=== PATIENT | female | born 1980 | race Caucasian/White ===

== ENCOUNTER 2016-08-14 22:39 | Emergency (ER) | payer BC, MEDICARE ==
[2016-08-14 23:07] VITALS: RESP 18
[2016-08-14] MEDS ORDERED: SODIUM CHLORIDE 0.9% 500 ML IV STA (23:21)
[2016-08-14] MEDS ORDERED: SODIUM CHLORIDE 0.9% 1,000 ML IV STA (23:21)
[2016-08-14 23:32] LABS: Basophils # (A) 0.1 k/uL (0-0.2); Basophils % (A) 1 %; CH 29.2; CHCM 32.8; Eosinophils # (A) 0.4 k/uL (0-0.7); Eosinophils % (A) 4 %; HCT 41.7 % (34.0-46.0); HDW 2.19; HGB 13.6 gm/dL (11.4-16.0); Luc % (Auto) 2; Lymphocytes # (A) 2.8 k/uL (1.0-4.8); Lymphocytes % (A) 32 %; MCH 29.1 pg (25.0-35.0); MCHC 32.5 g/dL (31.0-37.0); MCV 89.6 fL (80.0-100.0); Mean Platelet Volume 7.6; Monocytes # (A) 0.4 k/uL (0-1.0); Monocytes % (A) 5 %; Neutrophils # (A) 4.7 k/uL (1.3-7.7); Neutrophils % (A) 55 %; RBC 4.66 m/uL (3.80-5.40); RDW 13.6 % (11.5-15.5); WBC 8.5 k/uL (3.8-10.6); WBC (Perox) 8.68
[2016-08-14 23:33] LABS: Appearance,Urine Clear (Clear); Bilirubin,Urine Negative (Negative); Glucose,Urine (UA) Negative (Negative); Ketones,Urine Negative (Negative); Leukocyte Esterase,Urine Negative (Negative); Nitrite,Urine Negative (Negative); Protein,Urine Negative (Negative); Specific Gravity,Urine 1.011 (1.001-1.035); UA Billing (MACRO vs. MICRO) CHEM
[2016-08-14] MEDS ORDERED: ACETAMINOPHEN IV (For NPO) 1,000 MG in EMPTY BAG 1 BAG IVPB STA (23:34)
[2016-08-14] MEDS ORDERED: KETOROLAC 30 MG/ML 1 ML VIAL IVP STA (23:34)
[2016-08-14 23:46] LABS: ALT 25 U/L (9-52); AST 17 U/L (14-36); Alkaline Phosphatase 43 U/L (38-126); Anion Gap 11 mmol/L; Blood Urea Nitrogen 13 mg/dL (7-17); Calcium 9.5 mg/dL (8.4-10.2); Carbon Dioxide 25 mmol/L (22-30); Chloride 107 mmol/L (98-107); Glucose 86 mg/dL (74-99); Non-African American GFR(MDRD) >60 (>60 ml/min/1.73 sqM); Sodium 143 mmol/L (137-145); Total Bilirubin 0.6 mg/dL (0.2-1.3); Total Protein 7.7 g/dL (6.3-8.2)
--- NOTE | 2016-08-15 00:07 | ED ---
Fever HPI - General Chief Complaint: Fever Stated Complaint: headache/body ache/fever Time Seen by Provider: 08/14/16 23:13 Source: patient, RN notes reviewed Mode of arrival: ambulatory Limitations: no limitations - History of Present Illness Initial Comments: Patient is a 36-year-old female with chief complaint of fever and bodyaches for approximately a week. She reports that she is concerned she may have food poisoning she ate listeria contaminated cheese. She reports that she found out the listeria was and that she is via the news. She states that she does have a history of autoimmune disorders including ankylosing spondylitis, fibromyalgia. She states that she does have diffuse bodyaches and is concerned that she may be septic due to this. She reports that she's had multiple episodes of diarrhea. Also 2 episodes of vomiting. She also reports mild fever she had Motrin Tylenol earlier today. PAtient also reports history of dental abscess of upper right front teeth for 2 weeks, no antibiotics and plans to follow up with dentist. - Related Data Home Medications Medication Instructions Recorded Confirmed ALPRAZolam [Xanax] 1 mg PO TID 12/13/13 08/14/16 Albuterol Sulfate [Proair Hfa] 2 puff INHALATION RT-Q6H PRN 12/13/13 08/14/16 Gabapentin [Neurontin] 300 mg PO TID 12/13/13 08/14/16 Hydrocodone/Acetaminophen [[place] 1 tab PO Q6H PRN 12/13/13 08/14/16 10-325] SUMAtriptan SUCCINATE [Imitrex] 4 mg SQ DAILY PRN 12/13/13 08/14/16 Cetirizine HCl [Zyrtec] 10 mg PO HS 11/01/15 08/14/16 Cyclobenzaprine [Flexeril] 5 mg PO DAILY PRN 11/01/15 08/14/16 Fluticasone Nasal [place] [Flonase 1 spray EA NOSTRIL BID 11/01/15 08/14/16 Nasal [place]] HYDROmorphone HCL [Dilaudid] 8 mg PO Q4-6H 11/01/15 08/14/16 SUMAtriptan SUCCINATE [Imitrex] 100 mg PO DAILY PRN 11/01/15 08/14/16 Celecoxib [CeleBREX] 200 mg PO BID 08/14/16 08/14/16 DULoxetine HCL [Cymbalta] 60 mg PO BID 08/14/16 08/14/16 Ibuprofen [Motrin] 400 mg PO Q6HR PRN 08/14/16 08/14/16 lamoTRIgine [LaMICtal] 100 mg PO DAILY 08/14/16 08/14/16 Previous Rx's Medication Instructions Recorded Amoxic-Pot Clav 875-125Mg 1 tab PO Q12HR #20 tablet 08/15/16 [Augmentin 875-125] Allergies Allergy/AdvReac Type Severity Reaction Status Date / Time No Known Allergies Allergy Verified 08/14/16 23:25 Review of Systems ROS Statement: Those systems with pertinent positive or pertinent negative responses have been documented in the HPI. ROS Other: All systems not noted in ROS Statement are negative. Past Medical History Past Medical History: Fibromyalgia, Pulmonary Embolus (PE) Additional Past Medical History / Comment(s): chronic back pain, ankylosing spondylitis, ruling out multiple sclerosis, chronic constipation History of Any Multi-Drug Resistant Organisms: None Reported Additional Past Surgical History / Comment(s): d&c Past Psychological History: Anxiety Smoking Status: Current every day smoker Past Alcohol Use History: None Reported Past Drug Use History: None Reported General Exam - General Exam Comments Initial Comments: 36-year-old female. Patient does not appear to be in any acute distress. Limitations: no limitations General appearance: alert, in no apparent distress Head exam: Present: atraumatic, normocephalic, normal inspection Eye exam: Present: normal appearance, PERRL, EOMI. Absent: scleral icterus, conjunctival injection, periorbital swelling ENT exam: Present: normal exam, mucous membranes moist. Absent: normal oropharynx (evidnce of dental abscess over roof of mouth behind left upper teeth. ) Neck exam: Present: normal inspection. Absent: tenderness, meningismus, lymphadenopathy Respiratory exam: Present: normal lung sounds bilaterally. Absent: respiratory distress, wheezes, rales, rhonchi, stridor Cardiovascular Exam: Present: regular rate, normal rhythm, normal heart sounds. Absent: systolic murmur, diastolic murmur, rubs, gallop, clicks GI/Abdominal exam: Present: soft, normal bowel sounds. Absent: distended, tenderness, guarding, rebound, rigid Extremities exam: Present: normal inspection, full ROM, normal capillary refill. Absent: tenderness, pedal edema, joint swelling, calf tenderness Back exam: Present: normal inspection Neurological exam: Present: alert, oriented X3, CN II-XII intact Psychiatric exam: Present: normal affect, normal mood Skin exam: Present: warm, dry, intact, normal color. Absent: rash Course Vital Signs 08/14/16 08/15/16 23:03 01:12 Temperature 98.9 F 97.8 F Pulse Rate 105 H 70 Respiratory 18 18 Rate Blood Pressure 119/67 108/55 O2 Sat by Pulse 95 95 Oximetry Medical Decision Making - Medical Decision Making Patient is a 36-year-old female with chief complaint of fever and bodyaches for approximately a week. She reports that she is concerned she may have food poisoning she ate listeria contaminated cheese. She reports that she found out the listeria was and that she is via the news. She states that she does have a history of autoimmune disorders including ankylosing spondylitis, fibromyalgia. She states that she does have diffuse bodyaches and is concerned that she may be septic due to this. She reports that she's had multiple episodes of diarrhea. Also 2 episodes of vomiting. She also reports mild fever she had Motrin Tylenol earlier today. Patient also has history of dental abscess for 2 weeks. Patient will be given Rx for augmentin for dental abscess. IV fluids and labs completed. Labs are within normal limits, and negative flu swab. I discussed treating patient for dental abscess, and to follow up with PCP as she may be having an exacerbation of fibromyalgia. Patient CXR is negative and KUB does show significant bowel gas, no definite obstruction. Patient has no vomiting in ER and reports is passing gas and bowel movements. Patient understands treatment plan and will comply. - Lab Data Result diagrams: 08/14/16 23:10 08/14/16 23:10 Lab Results 08/14/16 08/14/16 08/14/16 Range/Units 23:10 23:10 23:10 WBC 8.5 (3.8-10.6) k/uL RBC 4.66 (3.80-5.40) m/uL Hgb 13.6 (11.4-16.0) gm/dL Hct 41.7 (34.0-46.0) % MCV 89.6 (80.0-100.0) fL MCH 29.1 (25.0-35.0) pg MCHC 32.5 (31.0-37.0) g/dL RDW 13.6 (11.5-15.5) % Plt Count 235 (150-450) k/uL Neutrophils % 55 % Lymphocytes % 32 % Monocytes % 5 % Eosinophils % 4 % Basophils % 1 % Neutrophils # 4.7 (1.3-7.7) k/uL Lymphocytes # 2.8 (1.0-4.8) k/uL Monocytes # 0.4 (0-1.0) k/uL Eosinophils # 0.4 (0-0.7) k/uL Basophils # 0.1 (0-0.2) k/uL Sodium 143 (137-145) mmol/L Potassium 4.0 (3.5-5.1) mmol/L Chloride 107 (98-107) mmol/L Carbon Dioxide 25 (22-30) mmol/L Anion Gap 11 mmol/L BUN 13 (7-17) mg/dL Creatinine 0.80 (0.52-1.04) mg/dL Est GFR (MDRD) Af Amer >60 (>60 ml/min/1.73 sqM) Est GFR (MDRD) Non-Af >60 (>60 ml/min/1.73 sqM) Glucose 86 (74-99) mg/dL Calcium 9.5 (8.4-10.2) mg/dL Total Bilirubin 0.6 (0.2-1.3) mg/dL AST 17 (14-36) U/L ALT 25 (9-52) U/L Alkaline Phosphatase 43 (38-126) U/L Total Protein 7.7 (6.3-8.2) g/dL Albumin 4.6 (3.5-5.0) g/dL Urine Color Urine Appearance (Clear) Urine pH (5.0-8.0) Ur Specific [place] (1.001-1.035) Urine Protein (Negative) Urine Glucose (UA) (Negative) Urine Ketones (Negative) Urine Blood (Negative) Urine Nitrite (Negative) Urine Bilirubin (Negative) Urine Urobilinogen (<2.0) mg/dL Ur Leukocyte Esterase (Negative) Heterophile Antibody Negative (Negative) Influenza Type A RNA (Not Detectd) Influenza Type B (PCR) (Not Detectd) 03/16/17 03/16/17 Range/Units 23:10 23:24 WBC (3.8-10.6) k/uL RBC (3.80-5.40) m/uL Hgb (11.4-16.0) gm/dL Hct (34.0-46.0) % MCV (80.0-100.0) fL MCH (25.0-35.0) pg MCHC (31.0-37.0) g/dL RDW (11.5-15.5) % Plt Count (150-450) k/uL Neutrophils % % Lymphocytes % % Monocytes % % Eosinophils % % Basophils % % Neutrophils # (1.3-7.7) k/uL Lymphocytes # (1.0-4.8) k/uL Monocytes # (0-1.0) k/uL Eosinophils # (0-0.7) k/uL Basophils # (0-0.2) k/uL Sodium (137-145) mmol/L Potassium (3.5-5.1) mmol/L Chloride (98-107) mmol/L Carbon Dioxide (22-30) mmol/L Anion Gap mmol/L BUN (7-17) mg/dL Creatinine (0.52-1.04) mg/dL Est GFR (MDRD) Af Amer (>60 ml/min/1.73 sqM) Est GFR (MDRD) Non-Af (>60 ml/min/1.73 sqM) Glucose (74-99) mg/dL Calcium (8.4-10.2) mg/dL Total Bilirubin (0.2-1.3) mg/dL AST (14-36) U/L ALT (9-52) U/L Alkaline Phosphatase (38-126) U/L Total Protein (6.3-8.2) g/dL Albumin (3.5-5.0) g/dL Urine Color Yellow Urine Appearance Clear (Clear) Urine pH 7.0 (5.0-8.0) Ur Specific [place] 1.011 (1.001-1.035) Urine Protein Negative (Negative) Urine Glucose (UA) Negative (Negative) Urine Ketones Negative (Negative) Urine Blood Negative (Negative) Urine Nitrite Negative (Negative) Urine Bilirubin Negative (Negative) Urine Urobilinogen 2.0 (<2.0) mg/dL Ur Leukocyte Esterase Negative (Negative) Heterophile Antibody (Negative) Influenza Type A RNA Not Detected (Not Detectd) Influenza Type B (PCR) Not Detected (Not Detectd) - Radiology Data Radiology results: report reviewed Chest x-rays negative for any acute process. Nonspecific bowel gas pattern with possible cecal ileus or enteritis. Early process partial small bowel instruction difficult to entirely exclude clinical correlation with serial abdominal radiograph recommended for further evaluation. No free air. Disposition Clinical Impression: Dental abscess, Body aches Disposition: HOME SELF-CARE Condition: Good Instructions: Dental Abscess (ED) Additional Instructions: Patient has follow-up with primary care provider. Complete her antibiotic prescription. Return to the emergency department if any worsening signs or symptoms occur. Prescriptions: Amoxic-Pot Clav 875-125Mg [Augmentin 875-125] 1 tab PO Q12HR #20 tablet Referrals: Josse Austin MD [Primary Care Provider] - 1-2 days Time of Disposition: 01:01
[2016-08-15] MEDS ORDERED: MORPHINE SULFATE 2 MG/ML SYRINGE IVP ONE (00:19)
[2016-08-15] MEDS ORDERED: ONDANSETRON 4 MG/2 ML VIAL IVP STA (00:19)
--- NOTE | 2016-08-15 00:27 | XR ---
EXAM: XR Chest, 2 Views. CLINICAL HISTORY: Reason: Pain TECHNIQUE: Frontal and lateral views of the chest. COMPARISON: 11/01/15 FINDINGS: Lungs: Unremarkable. No consolidation. Pleural space: Unremarkable. No pneumothorax. Heart: Unremarkable. No cardiomegaly. Mediastinum: Unremarkable. Bones/joints: Unremarkable. Other findings: No significant change. IMPRESSION: Stable chest. No acute disease
--- NOTE | 2016-08-15 00:31 | XR ---
EXAM: XR Abdomen Complete, 2 or More Views. CLINICAL HISTORY: Reason: Pain TECHNIQUE: Frontal view of the abdomen/pelvis with upright view of the abdomen. COMPARISON: 11/20/14 FINDINGS: Intraperitoneal space: No abnormal calcification in the abdomen. No free air. There are surgical clips in the pelvis bilaterally. Gastrointestinal tract: Focal air-fluid level in the central abdomen with mildly distended small bowel. This is nonspecific. This may represent focal ileus due to enteritis. Distal bowel gas is seen in the rectosigmoid region with mild retained stool. Bones/joints: There is slight widening of the pubic symphysis, unchanged. IMPRESSION: Nonspecific bowel gas pattern with possible focal ileus/enteritis. Early partial small bowel obstruction difficult to entirely exclude and clinical correlation with serial abdominal radiographs recommended for further evaluation. No free air.
[2016-08-15] MEDS ORDERED: MAG HYDROX/AL HYDROX/SIMETH 30 ML, HYOSCYAMINE ELIXIR 10 ML, CIMETIDINE HCL 300 MG, LID... PO STA ×4 (01:05)
[2016-08-15 01:12] VITALS: BP 108/55; PULSE 70; TEMP 97.8
== END 2016-08-15 01:15 | disposition home or self-care (01) ==
LOC: EC 22:39
DX: K04.7 Periapical abscess without sinus (principal); R52 Pain, unspecified; M45.9 Ankylosing spondylitis of unspecified sites in spine; M79.7 Fibromyalgia; F41.9 Anxiety disorder, unspecified; F17.200 Nicotine dependence, unspecified, uncomplicated; Z79.51 Long term (current) use of inhaled steroids; Z79.891 Long term (current) use of opiate analgesic; Z79.899 Other long term (current) drug therapy
CPT/HCPCS: 36415; 80053; 85025; 86308; 81003; 87502; 71020; 74000; 99283; 96374; 96375 ×3; 96361; J2405; J1885; J2270; J0131

== ENCOUNTER 2017-01-04 05:19 | Emergency (ER) | payer BC, MEDICARE ==
[2017-01-04 05:26] VITALS: BP 137/64; PULSE 108; RESP 20; TEMP 97.1
[2017-01-04] MEDS ORDERED: ceFAZolin 1,000 MG VIAL IM STA (06:12)
[2017-01-04] MEDS ORDERED: KETOROLAC 60 MG/2 ML VIAL IM STA (06:12)
[2017-01-04] MEDS ORDERED: HYDROmorphone 1 MG/ML 1 ML SYRINGE IM STA (06:12)
--- NOTE | 2017-01-04 06:19 | ED ---
ENT HPI - General Chief complaint: Dental/Oral Stated complaint: dental pain Time Seen by Provider: 01/04/17 05:45 Source: patient, RN notes reviewed Mode of arrival: ambulatory Limitations: no limitations - History of Present Illness Initial comments: This is a 36-year-old female who states that several days ago she was in a local restaurant when she then something it was called she after that she started developing pain to the left front tooth area she also started developing when she wheezes abscess. She has a lot of pain no overt fevers or sweats however. She has had chills. She denies any other complaints or any other pain or injury she states she does have bad teeth. MD complaint: tooth pain - Related Data Home Medications Medication Instructions Recorded Confirmed ALPRAZolam [Xanax] 1 mg PO TID 12/13/13 08/14/16 Albuterol Sulfate [Proair Hfa] 2 puff INHALATION RT-Q6H PRN 12/13/13 08/14/16 Gabapentin [Neurontin] 300 mg PO TID 12/13/13 08/14/16 Hydrocodone/Acetaminophen [[place] 1 tab PO Q6H PRN 12/13/13 08/14/16 10-325] SUMAtriptan SUCCINATE [Imitrex] 4 mg SQ DAILY PRN 12/13/13 08/14/16 Cetirizine HCl [Zyrtec] 10 mg PO HS 11/01/15 08/14/16 Cyclobenzaprine [Flexeril] 5 mg PO DAILY PRN 11/01/15 08/14/16 Fluticasone Nasal [place] [Flonase 1 spray EA NOSTRIL BID 11/01/15 08/14/16 Nasal [place]] HYDROmorphone HCL [Dilaudid] 8 mg PO Q4-6H 11/01/15 08/14/16 SUMAtriptan SUCCINATE [Imitrex] 100 mg PO DAILY PRN 11/01/15 08/14/16 Celecoxib [CeleBREX] 200 mg PO BID 08/14/16 08/14/16 DULoxetine HCL [Cymbalta] 60 mg PO BID 08/14/16 08/14/16 Ibuprofen [Motrin] 400 mg PO Q6HR PRN 08/14/16 08/14/16 lamoTRIgine [LaMICtal] 100 mg PO DAILY 08/14/16 08/14/16 Previous Rx's Medication Instructions Recorded Amoxic-Pot Clav 875-125Mg 1 tab PO Q12HR #20 tablet 08/15/16 [Augmentin 875-125] Penicillin V Potassium [Pen Vee K] 500 mg PO QID #40 tab 01/04/17 Allergies Allergy/AdvReac Type Severity Reaction Status Date / Time No Known Allergies Allergy Verified 01/04/17 05:26 Review of Systems ROS Statement: Those systems with pertinent positive or pertinent negative responses have been documented in the HPI. ROS Other: All systems not noted in ROS Statement are negative. Past Medical History Past Medical History: Fibromyalgia, Pulmonary Embolus (PE) Additional Past Medical History / Comment(s): chronic back pain, ankylosing spondylitis, ruling out multiple sclerosis, chronic constipation History of Any Multi-Drug Resistant Organisms: None Reported Past Surgical History: Tubal Ligation Additional Past Surgical History / Comment(s): d&c Past Psychological History: Anxiety Smoking Status: Current every day smoker Past Alcohol Use History: None Reported Past Drug Use History: None Reported General Exam - General Exam Comments Initial Comments: This is a well-developed well-nourished awake alert oriented history female Limitations: no limitations General appearance: alert, anxious Head exam: Present: atraumatic, normocephalic, normal inspection Eye exam: Present: normal appearance, PERRL, EOMI. Absent: scleral icterus, conjunctival injection, periorbital swelling ENT exam: Present: mucous membranes moist, other (Patient does demonstrate poor dentition with evidence of an enlarged area that appears to be consistent with an abscess behind the left front tooth. Approximately 1.5 cm in diameter. Is slightly fluctuant and tender. Patient also has an eroded tooth #11.) Neck exam: Present: normal inspection, lymphadenopathy Neurological exam: Present: alert, oriented X3, CN II-XII intact Psychiatric exam: Present: normal affect, normal mood Skin exam: Present: warm, dry, intact, normal color. Absent: rash Course Vital Signs 01/04/17 05:24 Temperature 97.1 F L Pulse Rate 108 H Respiratory 20 Rate Blood Pressure 137/64 O2 Sat by Pulse 100 Oximetry Medical Decision Making - Medical Decision Making I did have a long discussion with the patient the initial plan was offered incision and drainage of the area the patient refuses at this point. She does not want to do this she has been taking her pain medication at home which includes 80 mg a lot it's without relief. Patient would rather try antibiotics first she will be given IM antibiotics as well as eye and pain medication. She was encouraged to follow-up with a dentist and return when necessary Disposition Clinical Impression: Dental abscess Disposition: HOME SELF-CARE Condition: Stable Instructions: Dental Abscess (ED) Prescriptions: Penicillin V Potassium [Pen Vee K] 500 mg PO QID #40 tab Referrals: Josse Austin MD [Primary Care Provider] - 1-2 days
== END 2017-01-04 06:52 | disposition home or self-care (01) ==
LOC: EC 05:19
DX: K04.7 Periapical abscess without sinus (principal); M79.7 Fibromyalgia; F41.9 Anxiety disorder, unspecified; F17.200 Nicotine dependence, unspecified, uncomplicated; Z86.711 Personal history of pulmonary embolism; Z79.51 Long term (current) use of inhaled steroids; Z79.899 Other long term (current) drug therapy; Z79.1 Long term (current) use of non-steroidal anti-inflammatories (NSAID)
CPT/HCPCS: 99282; 96372 ×3; J0690; J1885; J1170

== ENCOUNTER 2018-04-29 15:42 | Emergency (ER) | payer BC, MEDICARE ==
--- NOTE | 2018-04-29 16:44 | XR ---
EXAMINATION TYPE: XR chest 2V DATE OF EXAM: 04/29/2018 COMPARISON: 08/14/2016 HISTORY: Short of breath for 3 days TECHNIQUE: Frontal and lateral views of the chest are obtained. FINDINGS: Heart and mediastinum are normal. Lungs are clear. Diaphragm is normal. Pulmonary vascular ity is normal. Bony thorax appears normal. IMPRESSION: Normal chest. No change.
[2018-04-29 17:56] LABS: Basophils # (A) 0.1 k/uL (0-0.2); Basophils % (A) 1 %; Eosinophils # (A) 0.6 k/uL (0-0.7); Eosinophils % (A) 5 %; HCT 39.7 % (34.0-46.0); HGB 12.5 gm/dL (11.4-16.0); Lymphocytes # (A) 2.4 k/uL (1.0-4.8); Lymphocytes % (A) 22 %; MCH 27.8 pg (25.0-35.0); MCHC 31.6 g/dL (31.0-37.0); MCV 87.9 fL (80.0-100.0); Mean Platelet Volume 6.9; Monocytes # (A) 0.5 k/uL (0-1.0); Monocytes % (A) 4 %; Neutrophils # (A) 7.3 k/uL (1.3-7.7); Neutrophils % (A) 66 %; Platelet Count 246 k/uL (150-450); RBC 4.52 m/uL (3.80-5.40); RDW 14.3 % (11.5-15.5)
[2018-04-29 18:06] LABS: Partial Thromboplastin Time 26.1 sec (22.0-30.0); Prothrombin Time 9.6 sec (9.0-12.0)
[2018-04-29 18:09] LABS: Creatine Kinase 144 U/L (30-135)
[2018-04-29 18:11] LABS: Albumin 4.3 g/dL (3.5-5.0); Calcium 9.3 mg/dL (8.4-10.2); Potassium 4.3 mmol/L (3.5-5.1); Total Bilirubin 0.3 mg/dL (0.2-1.3); Total Protein 7.3 g/dL (6.3-8.2)
[2018-04-29 18:22] LABS: Creatine Kinase MB 0.5 ng/mL (0.0-2.4); Troponin I <0.012 ng/mL (0.000-0.034)
--- NOTE | 2018-04-29 18:33 | ED ---
General Adult HPI - General Chief complaint: Shortness of Breath Stated complaint: poss neumonia, chest pain, SOB Time Seen by Provider: 04/29/18 16:25 Source: patient, RN notes reviewed Mode of arrival: wheelchair Limitations: no limitations - History of Present Illness Initial comments: This is a 38-year-old female presents emergency department stating she has a four-day history of cough shortness of breath and coughing but no sputum production. Patient states she's had a fever of 101 today. Patient states she has no chest pain but feels as though she is short of breath per patient does states she continues to cough. Patient denies any abdominal pain patient denies nausea vomiting diarrhea. Patient denies headache patient denies numbness weakness. Patient denies lightheadedness dizziness or near syncopal episode. Emergency room I noted the patient did not appear in any respiratory distress however when I entered the room the patient started breathing harder and he was tachypneic at that point but not prior to entering the room - Related Data Home Medications Medication Instructions Recorded Confirmed ALPRAZolam [Xanax] 1 mg PO TID 12/13/13 04/29/18 Albuterol Sulfate [Proair Hfa] 2 puff INHALATION RT-Q6H PRN 12/13/13 04/29/18 Gabapentin [Neurontin] 300 mg PO TID 12/13/13 04/29/18 Hydrocodone/Acetaminophen [[place] 1 tab PO Q6H PRN 12/13/13 04/29/18 10-325] SUMAtriptan SUCCINATE [Imitrex] 4 mg SQ DAILY PRN 12/13/13 04/29/18 Cetirizine HCl [Zyrtec] 10 mg PO HS 11/01/15 04/29/18 Cyclobenzaprine [Flexeril] 5 mg PO DAILY PRN 11/01/15 04/29/18 Fluticasone Nasal [place] [Flonase 1 spray EA NOSTRIL BID 11/01/15 04/29/18 Nasal [place]] HYDROmorphone HCL [Dilaudid] 8 mg PO Q4-6H PRN 11/01/15 04/29/18 SUMAtriptan SUCCINATE [Imitrex] 100 mg PO DAILY PRN 11/01/15 04/29/18 Celecoxib [CeleBREX] 200 mg PO BID 08/14/16 04/29/18 DULoxetine HCL [Cymbalta] 60 mg PO DAILY 08/14/16 04/29/18 Ibuprofen [Motrin] 400 mg PO Q6HR PRN 08/14/16 04/29/18 lamoTRIgine [LaMICtal] 100 mg PO DAILY 08/14/16 04/29/18 Omeprazole 20 mg PO DAILY 04/29/18 04/29/18 Previous Rx's Medication Instructions Recorded Benzonatate [Tessalon Perles] 100 mg PO TID PRN #9 capsule 04/29/18 predniSONE 40 mg PO DAILY #8 tab 04/29/18 Allergies Allergy/AdvReac Type Severity Reaction Status Date / Time No Known Allergies Allergy Verified 04/29/18 18:35 Review of Systems ROS Statement: Those systems with pertinent positive or pertinent negative responses have been documented in the HPI. ROS Other: All systems not noted in ROS Statement are negative. Past Medical History Past Medical History: Fibromyalgia, Pulmonary Embolus (PE) Additional Past Medical History / Comment(s): chronic back pain, ankylosing spondylitis, ruling out multiple sclerosis, chronic constipation History of Any Multi-Drug Resistant Organisms: None Reported Past Surgical History: Tubal Ligation Additional Past Surgical History / Comment(s): d&c Past Psychological History: Anxiety Smoking Status: Current every day smoker Past Alcohol Use History: None Reported Past Drug Use History: None Reported General Exam - General Exam Comments Initial Comments: GENERAL: Patient is well-developed and well-nourished. Patient is nontoxic and well- hydrated and is in mild distress. ENT: Neck is soft and supple. No significant lymphadenopathy is noted. Oropharynx is clear. Moist mucous membranes. Neck has full range of motion without eliciting any pain. EYES: The sclera were anicteric and conjunctiva were pink and moist. Extraocular movements were intact and pupils were equal round and reactive to light. Eyelids were unremarkable. PULMONARY: Unlabored respirations. Good breath sounds bilaterally. No audible rales rhonchi or wheezing was noted. CARDIOVASCULAR: There is a regular rate and rhythm without any murmurs gallops or rubs. ABDOMEN: Soft and nontender with normal bowel sounds. No palpable organomegaly was noted. There is no palpable pulsatile mass. SKIN: Skin is clear with no lesions or rashes and otherwise unremarkable. NEUROLOGIC: Patient is alert and oriented x3. Cranial nerves II through XII are grossly intact. Motor and sensory are also intact. Normal speech, volume and content. Symmetrical smile. MUSCULOSKELETAL: Normal extremities with adequate strength and full range of motion. No lower extremity swelling or edema. No calf tenderness. LYMPHATICS: No significant lymphadenopathy is noted PSYCHIATRIC: Normal psychiatric evaluation. Limitations: no limitations Course Vital Signs 04/29/18 16:21 Temperature 99.0 F Pulse Rate 110 H Respiratory 20 Rate Blood Pressure 115/2 O2 Sat by Pulse 95 Oximetry Medical Decision Making - Medical Decision Making Chest x-ray shows no acute abnormality. After patient's blood work and x-ray came back I spoke with the patient and reexamined the patient at that time the patient did have a little extra released by ordered a breathing treatment and some steroids for the patient. Patient will follow-up with primary medical care doctor. Patient continues to her rescue inhaler she'll take the steroids and I will prescribe her and Tessalon Perles for the cough. EKG shows sinus tachycardia at 106 bpm AK interval 132 QRS is 78 QT interval 340 QTC is 451. Patient's EKG shows no ST segment elevation or depression or T wave abnormalities are noted. - Lab Data Result diagrams: 04/29/18 17:43 04/29/18 17:43 Lab Results 04/29/18 04/29/18 04/29/18 Range/Units 17:43 17:43 17:43 WBC 11.0 H (3.8-10.6) k/uL RBC 4.52 (3.80-5.40) m/uL Hgb 12.5 (11.4-16.0) gm/dL Hct 39.7 (34.0-46.0) % MCV 87.9 (80.0-100.0) fL MCH 27.8 (25.0-35.0) pg MCHC 31.6 (31.0-37.0) g/dL RDW 14.3 (11.5-15.5) % Plt Count 246 (150-450) k/uL Neutrophils % 66 % Lymphocytes % 22 % Monocytes % 4 % Eosinophils % 5 % Basophils % 1 % Neutrophils # 7.3 (1.3-7.7) k/uL Lymphocytes # 2.4 (1.0-4.8) k/uL Monocytes # 0.5 (0-1.0) k/uL Eosinophils # 0.6 (0-0.7) k/uL Basophils # 0.1 (0-0.2) k/uL PT (9.0-12.0) sec INR (<1.2) APTT (22.0-30.0) sec D-Dimer (<0.60) mg/L FEU Sodium 139 (137-145) mmol/L Potassium 4.3 (3.5-5.1) mmol/L Chloride 107 (98-107) mmol/L Carbon Dioxide 24 (22-30) mmol/L Anion Gap 8 mmol/L BUN 13 (7-17) mg/dL Creatinine 0.95 (0.52-1.04) mg/dL Est GFR (CKD-EPI)AfAm 89 (>60 ml/min/1.73 sqM) Est GFR (CKD-EPI)NonAf 77 (>60 ml/min/1.73 sqM) Glucose 98 (74-99) mg/dL Calcium 9.3 (8.4-10.2) mg/dL Total Bilirubin 0.3 (0.2-1.3) mg/dL AST 24 (14-36) U/L ALT 33 (9-52) U/L Alkaline Phosphatase 57 (38-126) U/L Total Creatine Kinase 144 H (30-135) U/L CK-MB (CK-2) 0.5 (0.0-2.4) ng/mL CK-MB (CK-2) Rel Index 0.3 Troponin I <0.012 (0.000-0.034) ng/mL Total Protein 7.3 (6.3-8.2) g/dL Albumin 4.3 (3.5-5.0) g/dL 04/29/18 04/29/18 Range/Units 17:43 17:43 WBC (3.8-10.6) k/uL RBC (3.80-5.40) m/uL Hgb (11.4-16.0) gm/dL Hct (34.0-46.0) % MCV (80.0-100.0) fL MCH (25.0-35.0) pg MCHC (31.0-37.0) g/dL RDW (11.5-15.5) % Plt Count (150-450) k/uL Neutrophils % % Lymphocytes % % Monocytes % % Eosinophils % % Basophils % % Neutrophils # (1.3-7.7) k/uL Lymphocytes # (1.0-4.8) k/uL Monocytes # (0-1.0) k/uL Eosinophils # (0-0.7) k/uL Basophils # (0-0.2) k/uL PT 9.6 (9.0-12.0) sec INR 1.0 (<1.2) APTT 26.1 (22.0-30.0) sec D-Dimer 0.40 (<0.60) mg/L FEU Sodium (137-145) mmol/L Potassium (3.5-5.1) mmol/L Chloride (98-107) mmol/L Carbon Dioxide (22-30) mmol/L Anion Gap mmol/L BUN (7-17) mg/dL Creatinine (0.52-1.04) mg/dL Est GFR (CKD-EPI)AfAm (>60 ml/min/1.73 sqM) Est GFR (CKD-EPI)NonAf (>60 ml/min/1.73 sqM) Glucose (74-99) mg/dL Calcium (8.4-10.2) mg/dL Total Bilirubin (0.2-1.3) mg/dL AST (14-36) U/L ALT (9-52) U/L Alkaline Phosphatase (38-126) U/L Total Creatine Kinase (30-135) U/L CK-MB (CK-2) (0.0-2.4) ng/mL CK-MB (CK-2) Rel Index Troponin I (0.000-0.034) ng/mL Total Protein (6.3-8.2) g/dL Albumin (3.5-5.0) g/dL Disposition Clinical Impression: Bronchospasm, Viral bronchitis Disposition: HOME SELF-CARE Condition: Good Instructions: Bronchospasm (ED) Prescriptions: Benzonatate [Tessalon Perles] 100 mg PO TID PRN #9 capsule PRN Reason: Cough predniSONE 40 mg PO DAILY #8 tab Is patient prescribed a controlled substance at d/c from ED?: No Referrals: Josse Austin MD [Primary Care Provider] - 1-2 days Time of Disposition: 19:20
[2018-04-29] MEDS ORDERED: methylPREDNISolone SOD SUCCI 125 MG/2 ML VIAL IM ONE (19:19)
[2018-04-29] MEDS ORDERED: IPRATROPIUM-ALBUTEROL 3 ML NEB INHALATION STA (19:19)
[2018-04-29 20:06] VITALS: PULSE 110
[2018-04-29 20:07] VITALS: BP 108/69; RESP 18; TEMP 98.2
== END 2018-04-29 20:10 | disposition home or self-care (01) ==
LOC: EC 15:42
DX: J20.8 Acute bronchitis due to other specified organisms (principal); R00.0 Tachycardia, unspecified; M79.7 Fibromyalgia; G89.29 Other chronic pain; F41.9 Anxiety disorder, unspecified; F17.200 Nicotine dependence, unspecified, uncomplicated; Z79.1 Long term (current) use of non-steroidal anti-inflammatories (NSAID); Z79.51 Long term (current) use of inhaled steroids; Z79.899 Other long term (current) drug therapy; Z86.711 Personal history of pulmonary embolism
CPT/HCPCS: 36415; 71046; 80053; 82550; 82553; 84484; 85025; 85379; 85610; 85730; 93005; 94640; 96372; 99285

== ENCOUNTER 2018-10-21 19:42 | Emergency (ER) | payer BC, MEDICARE ==
[2018-10-21 20:05] VITALS: RESP 18
[2018-10-21] MEDS ORDERED: methylPREDNISolone SOD SUCCI 125 MG/2 ML VIAL IV STA (20:34)
[2018-10-21] MEDS ORDERED: SODIUM CHLORIDE 0.9% 1,000 ML IV STA (20:34)
[2018-10-21] MEDS ORDERED: ALBUTEROL NEBULIZED 2.5 MG/3 ML INHALATION STA (20:34)
[2018-10-21] MEDS ORDERED: IPRATROPIUM 0.5 MG/2.5 ML NEBU INHALATION STA (20:34)
[2018-10-21] MEDS ORDERED: IBUPROFEN 600 MG TAB PO STA (20:35)
[2018-10-21 20:55] LABS: Basophils # (A) 0.1 k/uL (0-0.2); Basophils % (A) 1 %; Eosinophils # (A) 0.2 k/uL (0-0.7); Eosinophils % (A) 2 %; HCT 40.6 % (34.0-46.0); HGB 13.1 gm/dL (11.4-16.0); Lymphocytes # (A) 3.4 k/uL (1.0-4.8); Lymphocytes % (A) 32 %; MCH 28.3 pg (25.0-35.0); MCHC 32.4 g/dL (31.0-37.0); MCV 87.3 fL (80.0-100.0); Mean Platelet Volume 7.5; Monocytes # (A) 0.5 k/uL (0-1.0); Monocytes % (A) 4 %; Neutrophils # (A) 6.3 k/uL (1.3-7.7); Neutrophils % (A) 59 %; Platelet Count 326 k/uL (150-450); RBC 4.65 m/uL (3.80-5.40); RDW 14.3 % (11.5-15.5); WBC 10.6 k/uL (3.8-10.6)
[2018-10-21 20:57] LABS: ALT 12 U/L (9-52); AST 14 U/L (14-36); African American GFR (CKD) >90 (>60 ml/min/1.73 sqM); Albumin 4.3 g/dL (3.5-5.0); Alkaline Phosphatase 59 U/L (38-126); Anion Gap 9 mmol/L; Blood Urea Nitrogen 10 mg/dL (7-17); Calcium 9.7 mg/dL (8.4-10.2); Carbon Dioxide 25 mmol/L (22-30); Chloride 106 mmol/L (98-107); Glucose 89 mg/dL (74-99); Sodium 140 mmol/L (137-145); Total Bilirubin 0.2 mg/dL (0.2-1.3); Total Protein 7.2 g/dL (6.3-8.2)
[2018-10-21 21:02] LABS: D-Dimer 0.29 mg/L FEU (<0.60); INR 0.9 (<1.2); Partial Thromboplastin Time 23.8 sec (22.0-30.0); Prothrombin Time 9.6 sec (9.0-12.0)
--- NOTE | 2018-10-21 21:16 | XR ---
EXAMINATION: XR chest 2V DATE AND TIME: 10/21/2018 8:46 PM CLINICAL INDICATION: PHH; difficulty breathing TECHNIQUE: Departmental protocol COMPARISON: 04/29/2018 FINDINGS: The lungs are clear. The pleural spaces are negative. The cardiac silhouette is not enlarged. The remainder of the mediastinal silhouette is unremarkable. The skeletal structures and soft tissues are negative for acute findings. IMPRESSION: NO ACUTE PROCESS.
[2018-10-21] MEDS ORDERED: MORPHINE SULFATE 4 MG/ML SYRINGE IVP STA (21:45)
--- NOTE | 2018-10-21 22:34 | ED ---
SOB HPI - General Chief Complaint: Shortness of Breath Stated Complaint: DAVID, history of blood clots Time Seen by Provider: 10/21/18 20:13 Source: patient Mode of arrival: ambulatory Limitations: no limitations - History of Present Illness Initial Comments: 38-year-old female patient presents to the emergency department today for evaluation of shortness of breath and cough. Patient states she's been sick for the last 3-4 days with upper respiratory symptoms including fever, chills, cough, nasal congestion. Patient states that today she became significantly more short of breath. Patient states she is having chest tightness and heaviness of she presented here for further evaluation. Patient does have history of pulmonary embolism during . She denies any calf pain or swelling. Denies any recent travel. States she does not currently take any anticoagulant or antiplatelet medications. Patient since temperature was as high as 102.5F at home. Patient denies using any medication for her symptoms. States her son is currently sick with upper respiratory symptoms well. Patient denies any recent rash, abdominal pain, nausea, vomiting, diarrhea, constipation, back pain, numbness, tingling, dizziness, weakness, hematuria, dysuria, urinary urgency, urinary frequency, headache, visual changes, or any other complaints. - Related Data Home Medications Medication Instructions Recorded Confirmed ALPRAZolam [Xanax] 1 mg PO TID 12/13/13 10/21/18 Albuterol Sulfate [Proair Hfa] 2 puff INHALATION RT-Q6H PRN 12/13/13 10/21/18 Gabapentin [Neurontin] 300 mg PO TID 12/13/13 10/21/18 Hydrocodone/Acetaminophen [[place] 1 tab PO Q6H PRN 12/13/13 10/21/18 10-325] SUMAtriptan SUCCINATE [Imitrex] 4 mg SQ DAILY PRN 12/13/13 10/21/18 Cetirizine HCl [Zyrtec] 10 mg PO HS 11/01/15 10/21/18 Cyclobenzaprine [Flexeril] 5 mg PO DAILY PRN 11/01/15 10/21/18 Fluticasone Nasal [place] [Flonase 1 spray EA NOSTRIL BID 11/01/15 10/21/18 Nasal [place]] HYDROmorphone HCL [Dilaudid] 8 mg PO Q4-6H PRN 11/01/15 10/21/18 SUMAtriptan SUCCINATE [Imitrex] 100 mg PO DAILY PRN 11/01/15 10/21/18 Celecoxib [CeleBREX] 200 mg PO BID 08/14/16 10/21/18 DULoxetine HCL [Cymbalta] 60 mg PO DAILY 08/14/16 10/21/18 lamoTRIgine [LaMICtal] 100 mg PO DAILY 08/14/16 10/21/18 Omeprazole 20 mg PO DAILY 04/29/18 10/21/18 Dextroamphetamine/Amphetamine 20 mg PO TID 10/21/18 10/21/18 [Adderall] Previous Rx's Medication Instructions Recorded Ipratropium-Albuterol Nebulize 3 ml INHALATION Q4H PRN #30 neb 10/21/18 [Duoneb 0.5 mg-3 mg/3 ml Soln] guaiFENesin-DM 600/30MG [Mucinex 1 each PO Q12HR #10 tab.er.12h 10/21/18 Dm] predniSONE 50 mg PO DAILY #5 tablet 10/21/18 Allergies Allergy/AdvReac Type Severity Reaction Status Date / Time No Known Allergies Allergy Verified 10/21/18 21:57 Review of Systems ROS Statement: Those systems with pertinent positive or pertinent negative responses have been documented in the HPI. ROS Other: All systems not noted in ROS Statement are negative. Past Medical History Past Medical History: Fibromyalgia, Pulmonary Embolus (PE) Additional Past Medical History / Comment(s): chronic back pain, ankylosing spondylitis, ruling out multiple sclerosis, chronic constipation History of Any Multi-Drug Resistant Organisms: None Reported Past Surgical History: Tubal Ligation Additional Past Surgical History / Comment(s): d&c Past Psychological History: Anxiety, Depression Smoking Status: Current every day smoker Past Alcohol Use History: None Reported Past Drug Use History: None Reported General Exam Limitations: no limitations General appearance: alert, in no apparent distress, other (Physical well- developed, well-nourished adult female patient in no acute distress. Vital signs upon presentation are temperature 98.5F, pulse 86, respirations 18, blood pressure 124/82, pulse ox 97% on room air.) Eye exam: Present: normal appearance, PERRL, EOMI. Absent: scleral icterus, conjunctival injection, periorbital swelling ENT exam: Present: normal exam, normal oropharynx, mucous membranes moist Respiratory exam: Present: wheezes (Diffuse expiratory wheezing in the posterior lung ricardo). Absent: normal lung sounds bilaterally, respiratory distress, rales, rhonchi, stridor Cardiovascular Exam: Present: regular rate, normal rhythm, normal heart sounds. Absent: systolic murmur, diastolic murmur, rubs, gallop, clicks GI/Abdominal exam: Present: soft, normal bowel sounds. Absent: distended, tenderness, guarding, rebound, rigid Neurological exam: Present: alert, oriented X3, CN II-XII intact Psychiatric exam: Present: normal affect, normal mood Skin exam: Present: warm, dry, intact, normal color. Absent: rash Course Vital Signs 10/21/18 10/21/18 10/21/18 20:02 21:07 21:27 Temperature 98.5 F Pulse Rate 86 86 97 Respiratory 18 Rate Blood Pressure 124/82 O2 Sat by Pulse 97 Oximetry 10/21/18 10/21/18 22:05 22:58 Temperature 98.0 F Pulse Rate 89 Respiratory 18 18 Rate Blood Pressure 118/88 O2 Sat by Pulse 97 Oximetry Medical Decision Making - Medical Decision Making 38-year-old female patient presented to the emergency department today for evaluation of shortness of breath and chest tightness. Physical examination did reveal diffuse expiratory wheezing in the posterior lung ricardo. Patient did have oxygen saturations in the low 90s while here. We did administer a DuoNeb updraft treatment and IV steroids. Upon reevaluation patient does report slight improvement of symptoms. I did discuss lab findings, x-ray findings with the patient. We discussed discharge with oral treatment. She does have access to a nebulizer machine we will give a prescription for DuoNeb treatments at home. She is instructed follow up with her primary care physician for recheck in 1-2 days. Return parameters were discussed in detail. She verbalizes understanding and agrees with this plan. - Lab Data Result diagrams: 10/21/18 20:30 10/21/18 20:30 Lab Results 10/21/18 10/21/18 10/21/18 Range/Units 20:30 20:30 20:30 WBC 10.6 (3.8-10.6) k/uL RBC 4.65 (3.80-5.40) m/uL Hgb 13.1 (11.4-16.0) gm/dL Hct 40.6 (34.0-46.0) % MCV 87.3 (80.0-100.0) fL MCH 28.3 (25.0-35.0) pg MCHC 32.4 (31.0-37.0) g/dL RDW 14.3 (11.5-15.5) % Plt Count 326 (150-450) k/uL Neutrophils % 59 % Lymphocytes % 32 % Monocytes % 4 % Eosinophils % 2 % Basophils % 1 % Neutrophils # 6.3 (1.3-7.7) k/uL Lymphocytes # 3.4 (1.0-4.8) k/uL Monocytes # 0.5 (0-1.0) k/uL Eosinophils # 0.2 (0-0.7) k/uL Basophils # 0.1 (0-0.2) k/uL PT 9.6 (9.0-12.0) sec INR 0.9 (<1.2) APTT 23.8 (22.0-30.0) sec D-Dimer 0.29 (<0.60) mg/L FEU Sodium 140 (137-145) mmol/L Potassium 4.0 (3.5-5.1) mmol/L Chloride 106 (98-107) mmol/L Carbon Dioxide 25 (22-30) mmol/L Anion Gap 9 mmol/L BUN 10 (7-17) mg/dL Creatinine 0.68 (0.52-1.04) mg/dL Est GFR (CKD-EPI)AfAm >90 (>60 ml/min/1.73 sqM) Est GFR (CKD-EPI)NonAf >90 (>60 ml/min/1.73 sqM) Glucose 89 (74-99) mg/dL Calcium 9.7 (8.4-10.2) mg/dL Total Bilirubin 0.2 (0.2-1.3) mg/dL AST 14 (14-36) U/L ALT 12 (9-52) U/L Alkaline Phosphatase 59 (38-126) U/L Troponin I (0.000-0.034) ng/mL Total Protein 7.2 (6.3-8.2) g/dL Albumin 4.3 (3.5-5.0) g/dL 10/21/18 Range/Units 20:30 WBC (3.8-10.6) k/uL RBC (3.80-5.40) m/uL Hgb (11.4-16.0) gm/dL Hct (34.0-46.0) % MCV (80.0-100.0) fL MCH (25.0-35.0) pg MCHC (31.0-37.0) g/dL RDW (11.5-15.5) % Plt Count (150-450) k/uL Neutrophils % % Lymphocytes % % Monocytes % % Eosinophils % % Basophils % % Neutrophils # (1.3-7.7) k/uL Lymphocytes # (1.0-4.8) k/uL Monocytes # (0-1.0) k/uL Eosinophils # (0-0.7) k/uL Basophils # (0-0.2) k/uL PT (9.0-12.0) sec INR (<1.2) APTT (22.0-30.0) sec D-Dimer (<0.60) mg/L FEU Sodium (137-145) mmol/L Potassium (3.5-5.1) mmol/L Chloride (98-107) mmol/L Carbon Dioxide (22-30) mmol/L Anion Gap mmol/L BUN (7-17) mg/dL Creatinine (0.52-1.04) mg/dL Est GFR (CKD-EPI)AfAm (>60 ml/min/1.73 sqM) Est GFR (CKD-EPI)NonAf (>60 ml/min/1.73 sqM) Glucose (74-99) mg/dL Calcium (8.4-10.2) mg/dL Total Bilirubin (0.2-1.3) mg/dL AST (14-36) U/L ALT (9-52) U/L Alkaline Phosphatase (38-126) U/L Troponin I <0.012 (0.000-0.034) ng/mL Total Protein (6.3-8.2) g/dL Albumin (3.5-5.0) g/dL - EKG Data -: EKG Interpreted by [facility] EKG Comments: EKG obtained at 2022 shows sinus tachycardia with a ventricular rate of 101, [place] interval 126, QRS duration 82, QT 342, QTc 443. No evidence of ST elevation or depression. - Radiology Data Radiology results: report reviewed, image reviewed Two-view x-ray of the chest was obtained. Report was reviewed in its entirety. Impression by Dr. Karen Sifuentes shows no acute process. Disposition Clinical Impression: Acute bronchitis Disposition: HOME SELF-CARE Condition: Good Instructions (If sedation given, give patient instructions): Acute Bronchitis (ED) Additional Instructions: Take medications as directed. Follow-up through primary care physician for recheck in 1-2 days. Return to the emergency department immediately for any new, worsening, or concerning symptoms. Prescriptions: Ipratropium-Albuterol Nebulize [Duoneb 0.5 mg-3 mg/3 ml Soln] 3 ml INHALATION Q4H PRN #30 neb PRN Reason: Wheezing/Shortness of breath guaiFENesin-DM 600/30MG [Mucinex Dm] 1 each PO Q12HR #10 tab.er.12h predniSONE 50 mg PO DAILY #5 tablet Is patient prescribed a controlled substance at d/c from ED?: No Referrals: Josse Austin MD [Primary Care Provider] - 1-2 days Time of Disposition: 22:34
[2018-10-21 22:59] VITALS: BP 118/88; PULSE 89; TEMP 98
== END 2018-10-21 22:59 | disposition home or self-care (01) ==
LOC: EC 19:42
DX: J20.9 Acute bronchitis, unspecified (principal); R00.0 Tachycardia, unspecified; M79.7 Fibromyalgia; G89.29 Other chronic pain; F32.9 Major depressive disorder, single episode, unspecified; F41.9 Anxiety disorder, unspecified; F17.200 Nicotine dependence, unspecified, uncomplicated; Z79.1 Long term (current) use of non-steroidal anti-inflammatories (NSAID); Z79.51 Long term (current) use of inhaled steroids; Z79.899 Other long term (current) drug therapy; Z86.711 Personal history of pulmonary embolism
CPT/HCPCS: 36415; 94640; 93005; 85379; 80053; 84484; 85025; 85610; 85730; 87040; 71046; 99285; 96374; 96375; 96361; J2270; J2930

== ENCOUNTER 2018-10-22 18:40 | Observation (INO) | payer BC, MEDICARE ==
[2018-10-22] MEDS ORDERED: SODIUM CHLORIDE 0.9% 1,000 ML IV STA (19:03)
[2018-10-22] MEDS ORDERED: IPRATROPIUM-ALBUTEROL 3 ML NEB INHALATION STA ×2 (19:03→21:15)
[2018-10-22] MEDS ORDERED: methylPREDNISolone SOD SUCCI 125 MG/2 ML VIAL IV STA ×2 (19:03→19:17)
[2018-10-22 19:48] LABS: Basophils # (A) 0.1 k/uL (0-0.2); Basophils % (A) 0 %; Eosinophils # (A) 0.3 k/uL (0-0.7); Eosinophils % (A) 1 %; HCT 37.9 % (34.0-46.0); HGB 12.3 gm/dL (11.4-16.0); Lymphocytes # (A) 3.5 k/uL (1.0-4.8); Lymphocytes % (A) 16 %; MCH 28.4 pg (25.0-35.0); MCHC 32.5 g/dL (31.0-37.0); MCV 87.5 fL (80.0-100.0); Mean Platelet Volume 7.9; Monocytes # (A) 0.9 k/uL (0-1.0); Monocytes % (A) 4 %; Neutrophils # (A) 16.7 k/uL (1.3-7.7); Neutrophils % (A) 77 %; Platelet Count 311 k/uL (150-450); RBC 4.33 m/uL (3.80-5.40); RDW 14.6 % (11.5-15.5); WBC 21.5 k/uL (3.8-10.6)
[2018-10-22 19:56] LABS: ALT 11 U/L (9-52); AST 13 U/L (14-36); Albumin 4.1 g/dL (3.5-5.0); Alkaline Phosphatase 56 U/L (38-126); Anion Gap 7 mmol/L; Blood Urea Nitrogen 11 mg/dL (7-17); Calcium 9.5 mg/dL (8.4-10.2); Carbon Dioxide 24 mmol/L (22-30); Chloride 110 mmol/L (98-107); Glucose 87 mg/dL (74-99); Potassium 3.8 mmol/L (3.5-5.1); Sodium 141 mmol/L (137-145); Total Bilirubin 0.2 mg/dL (0.2-1.3); Total Protein 6.8 g/dL (6.3-8.2)
[2018-10-22 20:10] LABS: D-Dimer 0.33 mg/L FEU (<0.60); INR 0.9 (<1.2); Prothrombin Time 9.5 sec (9.0-12.0)
[2018-10-22 20:14] LABS: Partial Thromboplastin Time 19.1 sec (22.0-30.0)
--- NOTE | 2018-10-22 20:28 | ED ---
General Adult HPI - General Chief complaint: Shortness of Breath Stated complaint: Sob Time Seen by Provider: 10/22/18 18:48 Source: patient, RN notes reviewed, old records reviewed Mode of arrival: ambulatory Limitations: no limitations - History of Present Illness Initial comments: 38-year-old female patient past medical history of PE in 2006 after delivery- no current anticoagulation, asthma, fibromyalgia, chronic back pain, tubal ligation presents to ED for cough, shortness of breath, chest pain. Patient states this has been ongoing for approximately 1.5 weeks. Patient states that the chest pain is noted in her left breast region, worse with coughing. Patient was seen at this facility yesterday and began on treatment for acute bronchitis. Patient has any other complaints. Patient denies any abdominal pain. Patient states that she cannot be secondary to tubal ligation. Systemic: Pt denies fatigue, myalgia, fever/chills, rash. Pt denies weakness, night sweats, weight loss. Neuro: Pt denies headache, visual disturbances, syncope or pre-syncope. HEENT: Pt denies ocular discharge or irritation, otalgia, rhinorrhea, pharyngi tis or notable lymphadenopathy. Cardiopulmonary: Pt denies chest pain, SOB, heart palpitations, dyspnea on exertion. Abdominal/GI: Pt denies abdominal pain, n/v/d. : Pt denies dysuria, burning w/ urination, frequency/urgency. Denies new onset urinary or bowel incontinence. MSK: Pt denies myalgia, loss of strength or function in extremities. Neuro: Pt denies new onset weakness, paresthesias. - Related Data Home Medications Medication Instructions Recorded Confirmed ALPRAZolam [Xanax] 1 mg PO TID 12/13/13 10/21/18 Albuterol Sulfate [Proair Hfa] 2 puff INHALATION RT-Q6H PRN 12/13/13 10/21/18 Gabapentin [Neurontin] 300 mg PO TID 12/13/13 10/21/18 Hydrocodone/Acetaminophen [[place] 1 tab PO Q6H PRN 12/13/13 10/21/18 10-325] SUMAtriptan SUCCINATE [Imitrex] 4 mg SQ DAILY PRN 12/13/13 10/21/18 Cetirizine HCl [Zyrtec] 10 mg PO HS 11/01/15 10/21/18 Cyclobenzaprine [Flexeril] 5 mg PO DAILY PRN 11/01/15 10/21/18 Fluticasone Nasal [place] [Flonase 1 spray EA NOSTRIL BID 11/01/15 10/21/18 Nasal [place]] HYDROmorphone HCL [Dilaudid] 8 mg PO Q4-6H PRN 11/01/15 10/21/18 SUMAtriptan SUCCINATE [Imitrex] 100 mg PO DAILY PRN 11/01/15 10/21/18 Celecoxib [CeleBREX] 200 mg PO BID 08/14/16 10/21/18 DULoxetine HCL [Cymbalta] 60 mg PO DAILY 08/14/16 10/21/18 lamoTRIgine [LaMICtal] 100 mg PO DAILY 08/14/16 10/21/18 Omeprazole 20 mg PO DAILY 04/29/18 10/21/18 Dextroamphetamine/Amphetamine 20 mg PO TID 10/21/18 10/21/18 [Adderall] Previous Rx's Medication Instructions Recorded Ipratropium-Albuterol Nebulize 3 ml INHALATION Q4H PRN #30 neb 10/21/18 [Duoneb 0.5 mg-3 mg/3 ml Soln] guaiFENesin-DM 600/30MG [Mucinex 1 each PO Q12HR #10 tab.er.12h 10/21/18 Dm] predniSONE 50 mg PO DAILY #5 tablet 10/21/18 Allergies Allergy/AdvReac Type Severity Reaction Status Date / Time No Known Allergies Allergy Verified 10/22/18 18:46 Review of Systems ROS Statement: Those systems with pertinent positive or pertinent negative responses have been documented in the HPI. ROS Other: All systems not noted in ROS Statement are negative. Past Medical History Past Medical History: Fibromyalgia, Pulmonary Embolus (PE) Additional Past Medical History / Comment(s): chronic back pain, ankylosing spondylitis, ruling out multiple sclerosis, chronic constipation History of Any Multi-Drug Resistant Organisms: None Reported Past Surgical History: Tubal Ligation Additional Past Surgical History / Comment(s): d&c Past Psychological History: Anxiety, Depression Smoking Status: Current every day smoker Past Alcohol Use History: None Reported Past Drug Use History: None Reported General Exam - General Exam Comments Initial Comments: Constitutional: NAD, AOX3, Pt has pleasant affect. HEENT: NC/AT, trachea midline, neck supple, no lymphadenopathy. Posterior pha rynx non erythematous, without exudates. External ears appear normal, without discharge. Mucous membranes moist. Eyes PERRLA, EOM intact. There is no scleral icterus. No pallor noted. Cardiopulmonary: RRR, no murmurs, rubs or gallops, no JVD noted. Wheezing noted in right lung ricardo.. No peripheral edema. Abdominal exam: Abdomen soft and non-distended. Abdomen non-tender to palpation in all 4 quadrants. Bowel sounds active in LLQ. No hepatosplenomegaly. No ecchymosis Neuro: CN II-XII grossly intact. No nuchal rigidity. MSK: No posterior calf tenderness bilaterally, homans sign negative bilaterally. Posterior tibialis and radial pulse +2 bilaterally. Sensation intact in upper and lower extremities. Full active ROM in upper and lower extremities, 5/5 stregnth. Limitations: no limitations Course Vital Signs 10/22/18 10/22/18 10/22/18 18:43 19:16 19:25 Temperature 99.0 F Pulse Rate 109 H 106 H 110 H Respiratory 20 18 18 Rate Blood Pressure 129/84 O2 Sat by Pulse 97 Oximetry 10/22/18 10/22/18 19:38 21:00 Temperature Pulse Rate 98 100 Respiratory 20 18 Rate Blood Pressure 113/79 113/67 O2 Sat by Pulse 96 94 L Oximetry Medical Decision Making - Medical Decision Making 38-year-old female patient past medical history of PE in 2006 after delivery- no current anticoagulation, asthma, fibromyalgia, chronic back pain, tubal ligation presents to ED for cough, shortness of breath, chest pain. Patient states this has been ongoing for approximately 1.5 weeks. Patient states that the chest kyaw n is noted in her left breast region, worse with coughing. Patient was seen at this facility yesterday and began on treatment for acute bronchitis. Patient has any other complaints. Patient denies any abdominal pain. Patient states that she cannot be secondary to tubal ligation. Patient vital signs displayed mild tachycardia improved with IV fluids. Physical exam displayed wheezing in right lung field, improved after breathing treatment. Patient is in no respiratory distress. Laboratory investigations revealed a leukocytosis of 21.5. Coagulation studies within normal limits. D-dimer negative. CMP non- impressive. Troponin negative. CT chest angio for PE did not display any acute process. EKG not concerning for acute ischemia. Patient will be admitted for asthma exacerbation. Patient will be started on prophylactic azithromycin. Case discussed with Dr. Senior. - Lab Data Result diagrams: 10/22/18 19:31 10/22/18 19:31 Lab Results 10/22/18 10/22/18 10/22/18 Range/Units 19:31 19:31 19:31 WBC 21.5 H (3.8-10.6) k/uL RBC 4.33 (3.80-5.40) m/uL Hgb 12.3 (11.4-16.0) gm/dL Hct 37.9 (34.0-46.0) % MCV 87.5 (80.0-100.0) fL MCH 28.4 (25.0-35.0) pg MCHC 32.5 (31.0-37.0) g/dL RDW 14.6 (11.5-15.5) % Plt Count 311 (150-450) k/uL Neutrophils % 77 % Lymphocytes % 16 % Monocytes % 4 % Eosinophils % 1 % Basophils % 0 % Neutrophils # 16.7 H (1.3-7.7) k/uL Lymphocytes # 3.5 (1.0-4.8) k/uL Monocytes # 0.9 (0-1.0) k/uL Eosinophils # 0.3 (0-0.7) k/uL Basophils # 0.1 (0-0.2) k/uL PT 9.5 (9.0-12.0) sec INR 0.9 (<1.2) APTT 19.1 L (22.0-30.0) sec D-Dimer 0.33 (<0.60) mg/L FEU Sodium 141 (137-145) mmol/L Potassium 3.8 (3.5-5.1) mmol/L Chloride 110 H (98-107) mmol/L Carbon Dioxide 24 (22-30) mmol/L Anion Gap 7 mmol/L BUN 11 (7-17) mg/dL Creatinine 0.64 (0.52-1.04) mg/dL Est GFR (CKD-EPI)AfAm >90 (>60 ml/min/1.73 sqM) Est GFR (CKD-EPI)NonAf >90 (>60 ml/min/1.73 sqM) Glucose 87 (74-99) mg/dL Calcium 9.5 (8.4-10.2) mg/dL Total Bilirubin 0.2 (0.2-1.3) mg/dL AST 13 L (14-36) U/L ALT 11 (9-52) U/L Alkaline Phosphatase 56 (38-126) U/L Troponin I (0.000-0.034) ng/mL Total Protein 6.8 (6.3-8.2) g/dL Albumin 4.1 (3.5-5.0) g/dL Urine Color Urine Appearance (Clear) Urine pH (5.0-8.0) Urine Protein (Negative) Urine Glucose (UA) (Negative) Urine Ketones (Negative) Urine Blood (Negative) Urine Nitrite (Negative) Urine Bilirubin (Negative) Urine Urobilinogen (<2.0) mg/dL Ur Leukocyte Esterase (Negative) 10/22/18 10/22/18 Range/Units 19:31 20:45 WBC (3.8-10.6) k/uL RBC (3.80-5.40) m/uL Hgb (11.4-16.0) gm/dL Hct (34.0-46.0) % MCV (80.0-100.0) fL MCH (25.0-35.0) pg MCHC (31.0-37.0) g/dL RDW (11.5-15.5) % Plt Count (150-450) k/uL Neutrophils % % Lymphocytes % % Monocytes % % Eosinophils % % Basophils % % Neutrophils # (1.3-7.7) k/uL Lymphocytes # (1.0-4.8) k/uL Monocytes # (0-1.0) k/uL Eosinophils # (0-0.7) k/uL Basophils # (0-0.2) k/uL PT (9.0-12.0) sec INR (<1.2) APTT (22.0-30.0) sec D-Dimer (<0.60) mg/L FEU Sodium (137-145) mmol/L Potassium (3.5-5.1) mmol/L Chloride (98-107) mmol/L Carbon Dioxide (22-30) mmol/L Anion Gap mmol/L BUN (7-17) mg/dL Creatinine (0.52-1.04) mg/dL Est GFR (CKD-EPI)AfAm (>60 ml/min/1.73 sqM) Est GFR (CKD-EPI)NonAf (>60 ml/min/1.73 sqM) Glucose (74-99) mg/dL Calcium (8.4-10.2) mg/dL Total Bilirubin (0.2-1.3) mg/dL AST (14-36) U/L ALT (9-52) U/L Alkaline Phosphatase (38-126) U/L Troponin I <0.012 (0.000-0.034) ng/mL Total Protein (6.3-8.2) g/dL Albumin (3.5-5.0) g/dL Urine Color Light Yellow Urine Appearance Clear (Clear) Urine pH 6.0 (5.0-8.0) Urine Protein Negative (Negative) Urine Glucose (UA) Negative (Negative) Urine Ketones Negative (Negative) Urine Blood Negative (Negative) Urine Nitrite Negative (Negative) Urine Bilirubin Negative (Negative) Urine Urobilinogen <2.0 (<2.0) mg/dL Ur Leukocyte Esterase Negative (Negative) - EKG Data -: EKG Interpreted by Me EKG Comments: Ventricular off for,. And for 120, QRS 78, QT/QTC 340/447. Sinus tachycardia, no concern for acute ischemia. No significant pain from prior EKG. Disposition Clinical Impression: Asthma exacerbation Disposition: ADMITTED IP TO THIS HOSP Condition: Serious Is patient prescribed a controlled substance at d/c from ED?: No Referrals: Josse Austin MD [Primary Care Provider] - 1-2 days
--- NOTE | 2018-10-22 20:41 | CT ---
EXAMINATION TYPE: CT chest angio for PE contrast and with 3-D reconstruction renderings DATE OF EXAM: 10/22/2018 COMPARISON: None HISTORY: Chest pain and cough. CT DLP: 365.8 mGycm Automated exposure control for dose reduction was used. CONTRAST: CT Chest for pulmonary embolism performed with with IV Contrast, patient injected with 65ml mL of Isovue 370. 3-D reconstructions. AP [place] view FINDINGS: LUNGS: The lungs are grossly clear, there is no concerning parenchymal mass or nodule identified. T here is no pleural effusion or pneumothorax seen. The tracheobronchial tree is patent. MEDIASTINUM: There is satisfactory enhancement of the pulmonary artery and its branches, there is no CT evidence for pulmonary embolism. No acute aortic findings. There are no greater than 1 cm hilar or mediastinal lymph nodes. No cardiomegaly. No pericardial effusion is seen. OTHER: No additional significant abnormality is seen. IMPRESSION: No acute process.
[2018-10-22 21:21] LABS: Appearance,Urine Clear (Clear); Bilirubin,Urine Negative (Negative); Blood,Urine Negative (Negative); Color,Urine Light Yellow; Glucose,Urine (UA) Negative (Negative); Ketones,Urine Negative (Negative); Leukocyte Esterase,Urine Negative (Negative); Nitrite,Urine Negative (Negative); Protein,Urine Negative (Negative); Urobilinogen,Urine <2.0 mg/dL (<2.0)
[2018-10-22 21:45] LABS: Specific Gravity,Urine >1.050 (1.001-1.035)
[2018-10-22] MEDS ORDERED: IPRATROPIUM-ALBUTEROL 3 ML NEB INHALATION PRN (21:45)
[2018-10-22] MEDS: AZITHROMYCIN 500 MG TAB PO SCH (21:48)
[2018-10-22] MEDS: HYDROcodone/APAP 5-325MG 1 EACH TAB PO PRN (21:48)
[2018-10-22 22:24] VITALS: BMI 28.8
[2018-10-22] MEDS ORDERED: HYDROmorphone 4 MG TABLET PO PRN (23:38)
[2018-10-23] MEDS: methylPREDNISolone SOD SUCCI 125 MG/2 ML VIAL IV SCH ×5 (01:53→23:46)
[2018-10-23] MEDS: ALPRAZolam 1 MG TAB PO PRN ×4 (01:54→22:08)
[2018-10-23] MEDS: GABAPENTIN 100 MG CAP PO SCH ×4 (02:00→22:08)
[2018-10-23] MEDS: IPRATROPIUM-ALBUTEROL 3 ML NEB INHALATION SCH ×4 (05:39→19:30)
[2018-10-23] MEDS: NICOTINE 21MG/24HR PATCH TRANSDERM SCH ×2 (05:51→10:17)
[2018-10-23] MEDS: HYDROcodone/APAP 5-325MG 1 EACH TAB PO PRN ×3 (05:51→18:55)
[2018-10-23] MEDS: MELOXICAM 7.5 MG TAB PO SCH (06:49)
[2018-10-23] MEDS: FAMOTIDINE 20 MG TAB PO SCH (06:51)
[2018-10-23 06:59] LABS: Glucose,Whole Blood 126 mg/dL (75-99)
[2018-10-23] MEDS: INSULIN ASPART (NovoLOG) 100 UNIT/ML VIAL SQ SCH ×4 (08:40→20:20)
[2018-10-23 11:59] LABS: Glucose,Whole Blood 178 mg/dL (75-99)
--- NOTE | 2018-10-23 13:05 | P.HPIM ---
History of Present Illness H&P Date: 10/23/18 Chief Complaint: Shortness of breath and cough The patient is a 38-year-old morbidly obese female with a past medical history of chronic pain currently on opioid dependent with Dilaudid, fibromyalgia, ankylosing spondylitis Fluids presented to the ER with chief com plaint of shortness of breath and cough. Apparently the patient has had intermittently productive cough and worsening shortness of breath over the last 10 days, patient reports coming previously to the ER on and was diagnosed with acute bronchitis and discharged home with a steroid pack, the patient reports no improvement in that presented back to the ER last night with similar symptoms, the patient also reports some associated chest pain Associated with her cough and taking deep breaths, she also reports subjective fevers chills or night sweats. She denies any lower extremity swelling, or pillow orthopnea. She reports that her son had pneumonia earlier this month. In the ER the patient had a comprehensive workup, showed a CBC of 21.6, otherwise her labs were normal, CTA of the chest was negative for PE without any other acute process noted. The patient was placed on a Z-Lee along with steroids and breathing treatments and recommended for admission Review of Systems Pertinent positives per HPI all other this was negative Past Medical History Past Medical History: Fibromyalgia, Pulmonary Embolus (PE) Additional Past Medical History / Comment(s): chronic back pain, ankylosing spondylitis, ruling out multiple sclerosis, chronic constipation History of Any Multi-Drug Resistant Organisms: None Reported Past Surgical History: Tubal Ligation Additional Past Surgical History / Comment(s): d&c Past Psychological History: ADD/ADHD, Anxiety, Bipolar, Depression Smoking Status: Current every day smoker Past Alcohol Use History: None Reported Past Drug Use History: None Reported - Past Family History Son(s) History Unknown: Yes Additional Family Medical History / Comment(s): MRSA on face Mother Family Medical History: Fibromyalgia, Musculoskeletal Disorder Medications and Allergies Home Medications Medication Instructions Recorded Confirmed Type ALPRAZolam [Xanax] 1 mg PO TID 12/13/13 10/22/18 History Albuterol Sulfate [Proair Hfa] 2 puff INHALATION RT-Q6H PRN 12/13/13 10/22/18 History Gabapentin [Neurontin] 300 mg PO TID 12/13/13 10/22/18 History Hydrocodone/Acetaminophen [[place] 1 tab PO Q6H PRN 12/13/13 10/22/18 History 10-325] SUMAtriptan SUCCINATE [Imitrex] 4 mg SQ DAILY PRN 12/13/13 10/22/18 History Cetirizine HCl [Zyrtec] 10 mg PO HS 11/01/15 10/22/18 History Cyclobenzaprine [Flexeril] 10 mg PO TID PRN 11/01/15 10/23/18 History Fluticasone Nasal [place] [Flonase 1 spray EA NOSTRIL BID 11/01/15 10/22/18 History Nasal [place]] HYDROmorphone HCL [Dilaudid] 8 mg PO Q4-6H PRN 11/01/15 10/22/18 History SUMAtriptan SUCCINATE [Imitrex] 100 mg PO DAILY PRN 11/01/15 10/22/18 History Celecoxib [CeleBREX] 200 mg PO BID 08/14/16 10/22/18 History DULoxetine HCL [Cymbalta] 60 mg PO DAILY 08/14/16 10/22/18 History lamoTRIgine [LaMICtal] 100 mg PO DAILY 08/14/16 10/22/18 History Omeprazole 20 mg PO DAILY 04/29/18 10/22/18 History Dextroamphetamine/Amphetamine 20 mg PO TID 10/21/18 10/22/18 History [Adderall] Ipratropium-Albuterol Nebulize 3 ml INHALATION Q4H PRN #30 neb 10/21/18 10/22/18 Rx [Duoneb 0.5 mg-3 mg/3 ml Soln] guaiFENesin-DM 600/30MG [Mucinex 1 each PO Q12HR #10 tab.er.12h 10/21/18 10/22/18 Rx Dm] predniSONE 50 mg PO DAILY #5 tablet 10/21/18 10/22/18 Rx Azithromycin 250 mg PO DAILY 3 Days #3 tab 10/24/18 Rx Allergies Allergy/AdvReac Type Severity Reaction Status Date / Time No Known Allergies Allergy Verified 10/22/18 21:55 Physical Exam Vitals: Vital Signs Temp Pulse Pulse Resp BP BP Pulse Ox 10/23/18 11:28 114 H 18 125/72 92 L 10/23/18 11:13 126 H 18 93 L 10/23/18 08:38 98.4 F 94 16 136/74 93 L 10/23/18 05:47 112 H 10/23/18 05:39 108 H 10/23/18 01:15 98.2 F 114 H 16 101/59 92 L 10/22/18 22:20 98.5 F 98 16 145/91 93 L 10/22/18 21:46 88 18 126/77 94 L 10/22/18 21:41 99 16 10/22/18 21:30 90 18 10/22/18 21:00 100 18 113/67 94 L 10/22/18 19:38 98 20 113/79 96 10/22/18 19:25 110 H 18 10/22/18 19:16 106 H 18 10/22/18 18:43 99.0 F 109 H 20 129/84 97 Intake and Output 10/22/18 10/23/18 10/23/18 22:59 06:59 14:59 Other: Weight 86.183 kg Constitutional: No acute distress, conversant, pleasant Eyes: Anicteric sclerae, moist conjunctiva, no lid-lag, PERRLA ENMT: NC/AT,Oropharynx clear, no erythema, exudates Neck:Supple, FROM, no masses, or JVD, No carotid bruits; No thyromegaly Lungs: Clear to auscultation, Clear to percussion, Normal respiratory effort, no accessory muscle use Cardiovascular: Heart regular in rate and rhythm, No murmurs, gallops, or rubs no peripheral edema Abdominal: Soft Nontender, nom distended, no guarding, no rebound or rigidity, Normoactive bowel sounds No hepatomegaly, No splenomegaly, No palpable mass No abdominal wall hernia noted Skin: Normal temperature, tone, texture, turgor, No induration No subcutaneous nodules, No rash, lesions, No ulcers Extremities:No digital cyanosis No clubbing, Pedal pulses intact and symmetrical Radial pulses intact and symmetrical Normal gait and station, No calf tenderness Psychiatric: Alert and oriented to person, place and time, Appropriate affect Intact judgement Neuro: Muscles Strength 5/5 in all 4 extremities, Sensation to light touch grossly present throughout, Cranial nerves II-XII grossly intact. No focal sensory deficits Results CBC & Chem 7: 10/22/18 19:31 10/22/18 19:31 Labs: Abnormal Lab Results - Last 24 Hours (Table) 10/22/18 10/22/18 10/22/18 Range/Units 19:31 19:31 19:31 WBC 21.5 H (3.8-10.6) k/uL Neutrophils # 16.7 H (1.3-7.7) k/uL APTT 19.1 L (22.0-30.0) sec Chloride 110 H (98-107) mmol/L POC Glucose (mg/dL) (75-99) mg/dL AST 13 L (14-36) U/L Ur Specific [place] (1.001-1.035) 10/22/18 10/23/18 10/23/18 Range/Units 20:45 06:47 11:46 WBC (3.8-10.6) k/uL Neutrophils # (1.3-7.7) k/uL APTT (22.0-30.0) sec Chloride (98-107) mmol/L POC Glucose (mg/dL) 126 H 178 H (75-99) mg/dL AST (14-36) U/L Ur Specific [place] >1.050 H (1.001-1.035) Assessment and Plan (1) Asthma exacerbation Current Visit: Yes Status: Acute Code(s): J45.901 - UNSPECIFIED ASTHMA WITH (ACUTE) EXACERBATION SNOMED Code(s): 705059501 (2) Acute bronchitis Current Visit: No Status: Acute Code(s): J20.9 - ACUTE BRONCHITIS, UNSPECIFIED SNOMED Code(s): 74274345 (3) Leukocytosis Current Visit: Yes Status: Acute Code(s): D72.829 - ELEVATED WHITE BLOOD CELL COUNT, UNSPECIFIED SNOMED Code(s): 903515477 (4) Chronic pain Current Visit: Yes Status: Acute Code(s): G89.29 - OTHER CHRONIC PAIN SNOMED Code(s): 23162568 (5) Fibromyalgia Current Visit: Yes Status: Acute Code(s): M79.7 - FIBROMYALGIA SNOMED Code(s): 247932198 Plan: The patient is admitted and placed on observation status anticipate a lesser than midnight stay with acute asthma exacerbation triggered by acute viral bronchitis, CT of the chest is negative for any intrathoracic pathology negative for PE and no signs of acute infection patient does have a pronounced leukocytosis of 21.6, she is afebrile. We'll continue systemic steroids IV Solu-Medrol, continue with Z-Lee, scheduled and PRN bronchodilator DuoNeb breathing treatments. The patient has chronic pain we'll try to restart her home pain regimen. Apparently pulmonary has been consulted from the ER we'll wait for any further recommendations from them, CODE STATUS: Full code Anticipated discharge: 1-2 days Discussed plan of care with patient Time with Patient: Greater than 30
[2018-10-23] MEDS ORDERED: lamoTRIgine 100 MG TAB PO STA (14:23)
[2018-10-23] MEDS ORDERED: DULoxetine HCL 60 MG CAPSULE.DR PO ONE (14:24)
--- NOTE | 2018-10-23 15:01 | P.CNPUL ---
History of Present Illness Consult date: 10/23/18 Reason for consult: dyspnea History of present illness: 38-year-old female patient with a remote history of pulmonary embolism, questionable history of asthma, also reports multiple comorbidities including fibromyalgia and ankylosing spondylitis and chronic pain and depression. The patient is coming in for some painful breathing and shortness of breath. She is a chronic smoker in she smokes one pack of cigarettes a day. In view of her pre vious history of pulmonary embolism, CAT scan of the chest was done and the CT angios showed no evidence of any pulmonary embolism or any acute process. She is on bronchodilators and systemic steroids and today to the lung examination is essentially within normal limits. No hypoxemia and currently she is on room air. She is pulse oxing the somewhat between 93-94% on room air. His main concern is her painkillers and she seems to be quite anxious at this point in time requiring getting Trilipix. She takes higher doses of Dilaudid almost 8 mg every 4-6 hours on a when necessary basis. She also takes Flexeril. No leg swelling. No Pain or tenderness. No aspiration. Review of Systems Constitutional: Reports chronic headaches, Reports chronic pain, Reports daytime sleepiness, Reports fatigue, Reports weakness Eyes: denies as per HPI, denies blurred vision, denies bulging eye, denies decreased vision, denies diplopia, denies discharge, denies dry eye, denies irritation, denies itching, denies pain, denies photophobia, denies loss of peripheral vision, denies loss of vision, denies tunnel vision/blind spots Ears: deny: decreased hearing, ear discharge, earache, tinnitus Ears, nose, mouth and throat: Denies headache, Denies sore throat Cardiovascular: Reports dyspnea on exertion, Reports shortness of breath Respiratory: Reports dyspnea Gastrointestinal: Denies abdominal pain, Denies diarrhea, Denies nausea, Denies vomiting Genitourinary: Reports as per HPI Menstruation: Reports as per HPI Musculoskeletal: Reports as per HPI, Reports gait dysfunction, Reports limitation of motion, Reports low back pain, Reports morning stiffness, Reports muscle weakness, Reports myalgias, Reports shooting arm pain, Reports shooting leg pain Musculoskeletal: absent: ankle pain, ankle stiffness, ankle swelling Integumentary: Denies pruritus, Denies rash Neurological: Reports as per HPI, Reports weakness Psychiatric: Reports as per HPI Endocrine: Reports as per HPI, Reports fatigue Hematologic/Lymphatic: Reports as per HPI Allergic/Immunologic: Reports as per HPI Past Medical History Past Medical History: Fibromyalgia, Pulmonary Embolus (PE) Additional Past Medical History / Comment(s): chronic back pain, ankylosing spondylitis, ruling out multiple sclerosis, chronic constipation History of Any Multi-Drug Resistant Organisms: None Reported Past Surgical History: Tubal Ligation Additional Past Surgical History / Comment(s): d&c Past Psychological History: ADD/ADHD, Anxiety, Bipolar, Depression Smoking Status: Current every day smoker Past Alcohol Use History: None Reported Past Drug Use History: None Reported - Past Family History Son(s) History Unknown: Yes Additional Family Medical History / Comment(s): MRSA on face Mother Family Medical History: Fibromyalgia, Musculoskeletal Disorder Medications and Allergies Home Medications Medication Instructions Recorded Confirmed Type ALPRAZolam [Xanax] 1 mg PO TID 12/13/13 10/22/18 History Albuterol Sulfate [Proair Hfa] 2 puff INHALATION RT-Q6H PRN 12/13/13 10/22/18 History Gabapentin [Neurontin] 300 mg PO TID 12/13/13 10/22/18 History Hydrocodone/Acetaminophen [[place] 1 tab PO Q6H PRN 12/13/13 10/22/18 History 10-325] SUMAtriptan SUCCINATE [Imitrex] 4 mg SQ DAILY PRN 12/13/13 10/22/18 History Cetirizine HCl [Zyrtec] 10 mg PO HS 11/01/15 10/22/18 History Cyclobenzaprine [Flexeril] 10 mg PO TID PRN 11/01/15 10/23/18 History Fluticasone Nasal [place] [Flonase 1 spray EA NOSTRIL BID 11/01/15 10/22/18 History Nasal [place]] HYDROmorphone HCL [Dilaudid] 8 mg PO Q4-6H PRN 11/01/15 10/22/18 History SUMAtriptan SUCCINATE [Imitrex] 100 mg PO DAILY PRN 11/01/15 10/22/18 History Celecoxib [CeleBREX] 200 mg PO BID 08/14/16 10/22/18 History DULoxetine HCL [Cymbalta] 60 mg PO DAILY 08/14/16 10/22/18 History lamoTRIgine [LaMICtal] 100 mg PO DAILY 08/14/16 10/22/18 History Omeprazole 20 mg PO DAILY 04/29/18 10/22/18 History Dextroamphetamine/Amphetamine 20 mg PO TID 10/21/18 10/22/18 History [Adderall] Ipratropium-Albuterol Nebulize 3 ml INHALATION Q4H PRN #30 neb 10/21/18 10/22/18 Rx [Duoneb 0.5 mg-3 mg/3 ml Soln] guaiFENesin-DM 600/30MG [Mucinex 1 each PO Q12HR #10 tab.er.12h 10/21/18 10/22/18 Rx Dm] predniSONE 50 mg PO DAILY #5 tablet 10/21/18 10/22/18 Rx Allergies Allergy/AdvReac Type Severity Reaction Status Date / Time No Known Allergies Allergy Verified 10/22/18 21:55 Physical Exam Vitals: Vital Signs Temp Pulse Pulse Resp BP BP Pulse Ox 10/23/18 11:28 114 H 18 125/72 92 L 10/23/18 11:13 126 H 18 93 L 10/23/18 08:38 98.4 F 94 16 136/74 93 L 10/23/18 05:47 112 H 10/23/18 05:39 108 H 10/23/18 01:15 98.2 F 114 H 16 101/59 92 L 10/22/18 22:20 98.5 F 98 16 145/91 93 L 10/22/18 21:46 88 18 126/77 94 L 10/22/18 21:41 99 16 10/22/18 21:30 90 18 10/22/18 21:00 100 18 113/67 94 L 10/22/18 19:38 98 20 113/79 96 10/22/18 19:25 110 H 18 10/22/18 19:16 106 H 18 10/22/18 18:43 99.0 F 109 H 20 129/84 97 Intake and Output 10/22/18 10/23/18 10/23/18 22:59 06:59 14:59 Other: Weight 86.183 kg Constitutional: No acute distress, conversant, pleasant Head exam was generally normal. There was no scleral icterus or corneal arcus. Mucous membranes were moist. ENMT: NC/AT,Oropharynx clear, no erythema, exudates, Neck was supple and without jugular venous distension, thyromegaly, or carotid bruits. Carotids were easily palpable bilaterally. There was no adenopathy. Lungs: Clear to auscultation, Clear to percussion, Normal respiratory effort, no accessory muscle use Cardiac exam revealed the PMI to be normally situated and sized. The rhythm was regular and no extrasystoles were noted during several minutes of auscultation. The first and second heart sounds were normal and physiologic splitting of the second heart sound was noted. There were no murmurs, rubs, clicks, or gallops. Abdominal: Soft Nontender, nom distended, no guarding, no rebound or rigidity, Normoactive bowel sounds No hepatomegaly, No splenomegaly, No palpable mass No abdominal wall hernia noted Skin: Normal temperature, tone, texture, turgor, No induration No subcutaneous nodules, No rash, lesions, No ulcers Extremities:No digital cyanosis No clubbing, Pedal pulses intact and symmetrical Radial pulses intact and symmetrical Normal gait and station, No calf tenderness Psychiatric: Alert and oriented to person, place and time, Appropriate affect Intact judgement Neuro: Muscles Strength 5/5 in all 4 extremities, Sensation to light touch grossly present throughout, Cranial nerves II-XII grossly intact. No focal sensory deficits Results - Laboratory Findings CBC and BMP: 10/22/18 19:31 10/22/18 19:31 PT/INR, D-dimer PT 9.5 sec (9.0-12.0) 10/22/18 19:31 INR 0.9 (<1.2) 10/22/18 19:31 D-Dimer 0.33 mg/L FEU (<0.60) 10/22/18 19:31 Abnormal lab findings: Abnormal Labs 10/22/18 10/22/18 10/22/18 19:31 19:31 19:31 WBC 21.5 H Neutrophils # 16.7 H APTT 19.1 L Chloride 110 H POC Glucose (mg/dL) AST 13 L Ur Specific [place] 10/22/18 10/23/18 10/23/18 20:45 06:47 11:46 WBC Neutrophils # APTT Chloride POC Glucose (mg/dL) 126 H 178 H AST Ur Specific [place] >1.050 H - Diagnostic Findings Chest x-ray: image reviewed CT scan - chest: image reviewed Assessment and Plan Plan: 1 shortness of breath, with possible some incisions asthma. CT angiogram is negative. No evidence of pneumonia. No evidence of any pulmonary embolism. The patient may have an underlying mild intermittent bronchial asthma which seems to be currently inactive and stable. 2 bronchitis, clinically grounds without any chest x-ray abnormalities and the CAT scan of the chest is negative for any pneumonia 3 mild leukocytosis 4 chronic pain 5 fibromyalgia 6 questionable history of ankylosing spondylitis 7 dependence to narcotic medications chronic pain Plan Taper Solu-Medrol to prednisone burst taper as of tomorrow. Overall pulmonary status is stable. Monitor the white count. Continue oral Zithromax for now. Mucinex DM for cough if needed. Outpatient indication be resumed. We'll follow as needed.
[2018-10-23] MEDS: HYDROmorphone 1 MG/ML 1 ML SYRINGE IVP PRN ×2 (15:52→22:09)
[2018-10-23 16:43] LABS: Glucose,Whole Blood 114 mg/dL (75-99)
[2018-10-23] MEDS: CYCLOBENZAPRINE 10 MG TAB PO PRN (18:55)
[2018-10-23 20:04] LABS: Glucose,Whole Blood 116 mg/dL (75-99)
[2018-10-23] MEDS: guaiFENesin-DM 600/30MG 1 EACH TAB.ER.12H PO SCH (20:30)
[2018-10-23] MEDS: AZITHROMYCIN 500 MG TAB PO SCH (20:30)
[2018-10-23] MEDS ORDERED: LORATADINE 10 MG TAB PO SCH (21:00)
[2018-10-24] MEDS: methylPREDNISolone SOD SUCCI 125 MG/2 ML VIAL IV SCH (05:30)
[2018-10-24 07:09] LABS: Glucose,Whole Blood 120 mg/dL (75-99)
[2018-10-24] MEDS: INSULIN ASPART (NovoLOG) 100 UNIT/ML VIAL SQ SCH (07:26)
[2018-10-24] MEDS ORDERED: PANTOPRAZOLE 40 MG TABLET PO SCH (07:30)
[2018-10-24] MEDS: MELOXICAM 7.5 MG TAB PO SCH (07:31)
[2018-10-24] MEDS: ALPRAZolam 1 MG TAB PO PRN (07:31)
[2018-10-24] MEDS: FAMOTIDINE 20 MG TAB PO SCH (07:32)
[2018-10-24] MEDS: GABAPENTIN 100 MG CAP PO SCH (07:32)
[2018-10-24] MEDS: guaiFENesin-DM 600/30MG 1 EACH TAB.ER.12H PO SCH (07:32)
[2018-10-24] MEDS: NICOTINE 21MG/24HR PATCH TRANSDERM SCH (07:33)
[2018-10-24] MEDS: HYDROmorphone 1 MG/ML 1 ML SYRINGE IVP PRN (07:34)
[2018-10-24 07:55] VITALS: BP 133/80; RESP 16; TEMP 98.4
[2018-10-24] MEDS: IPRATROPIUM-ALBUTEROL 3 ML NEB INHALATION SCH (08:00)
[2018-10-24 08:14] VITALS: PULSE 118
[2018-10-24] MEDS ORDERED: DULoxetine HCL 60 MG CAPSULE.DR PO SCH (09:00)
[2018-10-24] MEDS ORDERED: lamoTRIgine 100 MG TAB PO SCH (09:00)
--- NOTE | 2018-10-24 09:55 | P.DS ---
Providers Date of admission: 10/22/18 19:13 Expected date of discharge: 10/24/18 Attending physician: Gene Boyle MD Consults: 10/22/18 21:19 Consult Physician Stat Consulting Provider: Alma Goyal Consult Reason/Comments: asthma exacerbation Do you want consulting provider notified?: Yes Primary care physician: Josse Austin - Discharge Diagnosis(es) (1) Asthma exacerbation Current Visit: Yes Status: Acute (2) Acute bronchitis Current Visit: No Status: Acute (3) Leukocytosis Current Visit: Yes Status: Acute (4) Atypical chest pain Current Visit: Yes Status: Acute (5) Chronic pain Current Visit: Yes Status: Acute (6) Fibromyalgia Current Visit: Yes Status: Acute (7) Anxiety disorder Current Visit: Yes Status: Acute Hospital Course: The patient is a 38-year-old female is admitted for mild exacerbation of mild intermittent asthma triggered by likely viral acute bronchitis, given her history of PE CTA of the chest was ordered was negative for any PE or any acute process. Patient was initiated on systemic IV steroids with Solu-Medrol and started on bronchodilator DuoNeb reading treatments q 4 and PRN. The patient continued having intermittent bouts of atypical chest discomfort EKG was negative for any sedation acute ischemia, and her troponins were negative 2. Her atypical features were attributed to chronic pain from fibromyalgia as well as ongoing anxiety and panic attacks. Patient did have a significant leukocytosis of 21.3 but remained afebrile and was thought that this was secondary to steroid use. The patient's has concerns that her oxygenation was low hence a home O2 evaluation was performed which patient passed with flying co lors as she maintained ambulatory pulse oxygenation of 92% on RA. Patient was seen by pulmonary and cleared for discharge.this discharge process took approximately 30 minutes Focused exam Respiratory: Clear positive bilaterally no wheezes or rhonchi Pertinent Studies: CTA of chest - no acute process, negative for PE Patient Condition at Discharge: Good Plan - Discharge Summary New Discharge Prescriptions: New Azithromycin 250 mg PO DAILY 3 Days #3 tab Continue Albuterol Sulfate [Proair Hfa] 2 puff INHALATION RT-Q6H PRN PRN Reason: Dyspnea Hydrocodone/Acetaminophen [[place] 10-325] 1 tab PO Q6H PRN PRN Reason: Pain SUMAtriptan SUCCINATE [Imitrex] 4 mg SQ DAILY PRN PRN Reason: Migraine Headache Gabapentin [Neurontin] 300 mg PO TID ALPRAZolam [Xanax] 1 mg PO TID SUMAtriptan SUCCINATE [Imitrex] 100 mg PO DAILY PRN PRN Reason: Migraine Headache HYDROmorphone HCL [Dilaudid] 8 mg PO Q4-6H PRN PRN Reason: Pain Fluticasone Nasal [place] [Flonase Nasal [place]] 1 spray EA NOSTRIL BID Cyclobenzaprine [Flexeril] 10 mg PO TID PRN PRN Reason: Muscle Spasm Cetirizine HCl [Zyrtec] 10 mg PO HS lamoTRIgine [LaMICtal] 100 mg PO DAILY DULoxetine HCL [Cymbalta] 60 mg PO DAILY Celecoxib [CeleBREX] 200 mg PO BID Omeprazole 20 mg PO DAILY Dextroamphetamine/Amphetamine [Adderall] 20 mg PO TID Ipratropium-Albuterol Nebulize [Duoneb 0.5 mg-3 mg/3 ml Soln] 3 ml INHALATION Q4H PRN #30 neb PRN Reason: Wheezing/Shortness of breath guaiFENesin-DM 600/30MG [Mucinex Dm] 1 each PO Q12HR #10 tab.er.12h predniSONE 50 mg PO DAILY #5 tablet Discharge Medication List ALPRAZolam [Xanax] 1 mg PO TID 12/13/13 [History] Albuterol Sulfate [Proair Hfa] 2 puff INHALATION RT-Q6H PRN 12/13/13 [History] Gabapentin [Neurontin] 300 mg PO TID 12/13/13 [History] Hydrocodone/Acetaminophen [[place] 10-325] 1 tab PO Q6H PRN 12/13/13 [History] SUMAtriptan SUCCINATE [Imitrex] 4 mg SQ DAILY PRN 12/13/13 [History] Cetirizine HCl [Zyrtec] 10 mg PO HS 11/01/15 [History] Cyclobenzaprine [Flexeril] 10 mg PO TID PRN 11/01/15 [History] Fluticasone Nasal [place] [Flonase Nasal [place]] 1 spray EA NOSTRIL BID 11/01/15 [History] HYDROmorphone HCL [Dilaudid] 8 mg PO Q4-6H PRN 11/01/15 [History] SUMAtriptan SUCCINATE [Imitrex] 100 mg PO DAILY PRN 11/01/15 [History] Celecoxib [CeleBREX] 200 mg PO BID 08/14/16 [History] DULoxetine HCL [Cymbalta] 60 mg PO DAILY 08/14/16 [History] lamoTRIgine [LaMICtal] 100 mg PO DAILY 08/14/16 [History] Omeprazole 20 mg PO DAILY 04/29/18 [History] Dextroamphetamine/Amphetamine [Adderall] 20 mg PO TID 10/21/18 [History] Ipratropium-Albuterol Nebulize [Duoneb 0.5 mg-3 mg/3 ml Soln] 3 ml INHALATION Q4H PRN #30 neb 10/21/18 [Rx] guaiFENesin-DM 600/30MG [Mucinex Dm] 1 each PO Q12HR #10 tab.er.12h 10/21/18 [Rx] predniSONE 50 mg PO DAILY #5 tablet 10/21/18 [Rx] Azithromycin 250 mg PO DAILY 3 Days #3 tab 10/24/18 [Rx] Follow up Appointment(s)/Referral(s): Josse Austin MD [Primary Care Provider] - 1-2 days Discharge Disposition: HOME SELF-CARE
[2018-10-24] MEDS: HYDROcodone/APAP 5-325MG 1 EACH TAB PO PRN (09:58)
[2018-10-24] MEDS: CYCLOBENZAPRINE 10 MG TAB PO PRN (09:59)
[2018-10-24 10:00] LABS: Basophils % (A) 0 %; Eosinophils % (A) 0 %; HCT 34.8 % (34.0-46.0); HGB 11.1 gm/dL (11.4-16.0); Hypochromasia Slight; Lymphocytes # (A) 1.6 k/uL (1.0-4.8); Lymphocytes % (A) 8 %; MCH 28.1 pg (25.0-35.0); MCHC 31.8 g/dL (31.0-37.0); MCV 88.3 fL (80.0-100.0); Monocytes # (A) 0.5 k/uL (0-1.0); Monocytes % (A) 2 %; Neutrophils # (A) 18.2 k/uL (1.3-7.7); Neutrophils % (A) 90 %; Platelet Count 273 k/uL (150-450); RBC 3.94 m/uL (3.80-5.40); RDW 14.6 % (11.5-15.5); WBC 20.3 k/uL (3.8-10.6)
== END 2018-10-24 11:23 | disposition home or self-care (01) ==
LOC: EC 18:40 → 4SSUR 19:13 → UNDOADMIN 19:13 → 4SSUR 19:13
PROVIDERS: ADMIT Family Medicine; ATTEND Family Medicine
DX: J45.21 Mild intermittent asthma with (acute) exacerbation (principal); J20.8 Acute bronchitis due to other specified organisms; R07.89 Other chest pain; G89.29 Other chronic pain; M54.9 Dorsalgia, unspecified; M79.7 Fibromyalgia; F41.0 Panic disorder [episodic paroxysmal anxiety]; F31.9 Bipolar disorder, unspecified; M45.9 Ankylosing spondylitis of unspecified sites in spine; K59.09 Other constipation; F17.210 Nicotine dependence, cigarettes, uncomplicated; F11.20 Opioid dependence, uncomplicated; F90.9 Attention-deficit hyperactivity disorder, unspecified type; E66.01 Morbid (severe) obesity due to excess calories; Z68.28 Body mass index [BMI] 28.0-28.9, adult; Z86.711 Personal history of pulmonary embolism; Z79.899 Other long term (current) drug therapy; Z79.1 Long term (current) use of non-steroidal anti-inflammatories (NSAID); Z20.89 Contact with and (suspected) exposure to other communicable diseases; Z83.1 Family history of other infectious and parasitic diseases
CPT/HCPCS: 96376 ×2; 96375; 96361; 96374; 99285; 36415; 94640 ×5; 94760; 93005; 85379; 80053; 84484 ×2; 85025 ×2; 85610; 85730; 81003; 71275; G0378 ×3; S4990 ×2; J2930 ×3; J1170 ×2; Q9967

== ENCOUNTER 2018-10-24 17:40 | Emergency (ER) | payer BC, MEDICARE ==
[2018-10-24 17:50] VITALS: TEMP 99.1
[2018-10-24] MEDS ORDERED: IPRATROPIUM-ALBUTEROL 3 ML NEB INHALATION STA (18:20)
[2018-10-24] MEDS ORDERED: SODIUM CHLORIDE 0.9% 1,000 ML IV STA (18:20)
[2018-10-24] MEDS ORDERED: methylPREDNISolone SOD SUCCI 125 MG/2 ML VIAL IV STA (18:20)
[2018-10-24] MEDS ORDERED: ASPIRIN 81 MG PO STA (18:21)
--- NOTE | 2018-10-24 18:42 | ED ---
General Adult HPI - General Chief complaint: Shortness of Breath Stated complaint: dizzy, headache Time Seen by Provider: 10/24/18 18:01 Source: patient, RN notes reviewed, old records reviewed Mode of arrival: wheelchair Limitations: no limitations - History of Present Illness Initial comments: 38-year-old female patient past medical history of prior pulmonary embolism 2007 after - no current anticoagulation, asthma, chronic back pain, fibromy algia, tubal ligation presents to ED for cough, wheezing, chest pain, shortness of breath. Patient also had near syncopal episode today. Patient states that the symptoms have been ongoing for approximately 2 weeks. Patient was recently admitted to this facility on 10/22 for asthma exacerbation. Patient was discharged today. Patient works that upon returning home she began again experiencing chest pain, shortness of breath. Patient describes the chest pain as parasternally bilaterally. He said this is the same pain that she has been experiencing for the last 2 weeks. Denies any change. Patient reports that she was feeling short of breath she stood up abruptly and fell to the ground, was able to partially catch herself with her hands. Denies any significant trauma to head. Patient does report some headache however she also states this has been ongoing for approximately 2 weeks. Patient states that her chronic pain secondary to fibromyalgia is at baseline. Systemic: Pt denies fatigue, myalgia, fever/chills, rash. Pt denies weakness, night sweats, weight loss. Neuro: Pt denies visual disturbances, syncope or pre-syncope. HEENT: Pt denies ocular discharge or irritation, otalgia, rhinorrhea, pharyngitis or notable lymphadenopathy. Cardiopulmonary: Pt denies heart palpitations, dyspnea on exertion. Abdominal/GI: Pt denies abdominal pain, n/v/d. : Pt denies dysuria, burning w/ urination, frequency/urgency. Denies new onset urinary or bowel incontinence. MSK: Pt denies myalgia, loss of strength or function in extremities. Neuro: Pt denies new onset weakness, paresthesias. - Related Data Home Medications Medication Instructions Recorded Confirmed ALPRAZolam [Xanax] 1 mg PO TID 12/13/13 10/24/18 Albuterol Sulfate [Proair Hfa] 2 puff INHALATION RT-Q6H PRN 12/13/13 10/24/18 Gabapentin [Neurontin] 300 mg PO TID 12/13/13 10/24/18 Hydrocodone/Acetaminophen [[place] 1 tab PO Q6H PRN 12/13/13 10/24/18 10-325] SUMAtriptan SUCCINATE [Imitrex] 4 mg SQ DAILY PRN 12/13/13 10/24/18 Cetirizine HCl [Zyrtec] 10 mg PO HS 11/01/15 10/24/18 Cyclobenzaprine [Flexeril] 10 mg PO TID PRN 11/01/15 10/24/18 Fluticasone Nasal [place] [Flonase 1 spray EA NOSTRIL BID 11/01/15 10/24/18 Nasal [place]] HYDROmorphone HCL [Dilaudid] 8 mg PO Q4-6H PRN 11/01/15 10/24/18 SUMAtriptan SUCCINATE [Imitrex] 100 mg PO DAILY PRN 11/01/15 10/24/18 Celecoxib [CeleBREX] 200 mg PO BID 08/14/16 10/24/18 DULoxetine HCL [Cymbalta] 60 mg PO DAILY 08/14/16 10/24/18 lamoTRIgine [LaMICtal] 100 mg PO DAILY 08/14/16 10/24/18 Omeprazole 20 mg PO DAILY 04/29/18 10/24/18 Dextroamphetamine/Amphetamine 20 mg PO TID 10/21/18 10/24/18 [Adderall] Previous Rx's Medication Instructions Recorded Ipratropium-Albuterol Nebulize 3 ml INHALATION Q4H PRN #30 neb 10/21/18 [Duoneb 0.5 mg-3 mg/3 ml Soln] guaiFENesin-DM 600/30MG [Mucinex 1 each PO Q12HR #10 tab.er.12h 10/21/18 Dm] predniSONE 50 mg PO DAILY #5 tablet 10/21/18 Albuterol Inhaler [Ventolin Hfa 1 - 2 puff INHALATION Q4-6H PRN #1 10/24/18 Inhaler] inhaler Albuterol Nebulized [Ventolin 2.5 mg INHALATION Q4H PRN 10 Days 10/24/18 Nebulized] nebu Amoxicillin/Potassium Clav 1 each PO Q12HR #20 tab 10/24/18 [Augmentin 875-125 Tablet] Azithromycin 250 mg PO DAILY 3 Days #3 tab 10/24/18 predniSONE 50 mg PO DAILY #3 tab 10/24/18 Allergies Allergy/AdvReac Type Severity Reaction Status Date / Time No Known Allergies Allergy Verified 10/24/18 18:20 Review of Systems ROS Statement: Those systems with pertinent positive or pertinent negative responses have been documented in the HPI. ROS Other: All systems not noted in ROS Statement are negative. Past Medical History Past Medical History: Fibromyalgia, Pulmonary Embolus (PE) Additional Past Medical History / Comment(s): chronic back pain, ankylosing spondylitis, ruling out multiple sclerosis, chronic constipation History of Any Multi-Drug Resistant Organisms: None Reported Past Surgical History: Tubal Ligation Additional Past Surgical History / Comment(s): d&c Past Psychological History: ADD/ADHD, Anxiety, Bipolar, Depression Smoking Status: Current every day smoker Past Alcohol Use History: None Reported Past Drug Use History: None Reported - Past Family History Son(s) History Unknown: Yes Additional Family Medical History / Comment(s): MRSA on face Mother Family Medical History: Fibromyalgia, Musculoskeletal Disorder General Exam - General Exam Comments Initial Comments: Constitutional: NAD, AOX3, Pt has pleasant affect. HEENT: NC/AT, trachea midline, neck supple, no lymphadenopathy. Posterior pharyn x non erythematous, without exudates. External ears appear normal, without discharge. Mucous membranes moist. Eyes PERRLA, EOM intact. There is no scleral icterus. No pallor noted. Cardiopulmonary: RRR, no murmurs, rubs or gallops, no JVD noted. Wheezing noted in left lung ricardo. Resolved after breathing treatment. No peripheral edema. Abdominal exam: Abdomen soft and non-distended. Abdomen non-tender to palpation in all 4 quadrants. Bowel sounds active in LLQ. No hepatosplenomegaly. No ecch ymosis Neuro: CN II-XII intact. No nuchal rigidity. MSK: No posterior calf tenderness bilaterally, homans sign negative bilaterally. Posterior tibialis and radial pulse +2 bilaterally. Sensation intact in upper and lower extremities. Full active ROM in upper and lower extremities, 5/5 stregnth. Limitations: no limitations Course Vital Signs 10/24/18 10/24/18 10/24/18 17:47 19:00 19:36 Temperature 99.1 F Pulse Rate 89 69 94 Respiratory 22 20 Rate Blood Pressure 151/89 130/79 O2 Sat by Pulse 94 L 95 Oximetry 10/24/18 10/24/18 10/24/18 19:50 20:30 22:00 Temperature Pulse Rate 76 80 75 Respiratory 22 20 Rate Blood Pressure 126/71 134/84 O2 Sat by Pulse 92 L 92 L Oximetry 10/24/18 22:45 Temperature Pulse Rate 92 Respiratory 18 Rate Blood Pressure 138/85 O2 Sat by Pulse 95 Oximetry Medical Decision Making - Medical Decision Making 38-year-old female patient past medical history of prior pulmonary embolism 2006 after - no current anticoagulation, asthma, chronic back pain, fibromyalgia, tubal ligation presents to ED for cough, wheezing, chest pain, shortness of breath. Patient also had near syncopal episode today. Patient states that the symptoms have been ongoing for approximately 2 weeks. Patient was recently admitted to this facility on 10/22 for asthma exacerbation. Patient was discharged today. Patient works that upon returning home she began again experiencing chest pain, shortness of breath. Patient describes the chest pain as parasternally bilaterally. He said this is the same pain that she has been experiencing for the last 2 weeks. Denies any change. Patient reports that she was feeling short of breath she stood up abruptly and fell to the ground, was able to partially catch herself with her hands. Denies any significant trauma to head. Patient does report some headache however she also states this has been ongoing for approximately 2 weeks. Patient states that her chronic pain secondary to fibromyalgia is at baseline. Patient vital signs stable, afebrile. Physical exam revealed wheezing noted in left lung ricardo. Resolved after breathing treatment. Laboratory investigations revealed leukocytosis of 22.9. Likely secondary to steroid use. Correlation studies nonimpressive. D-dimer mildly elevated 0.72. CMP nonimmpressive. Troponin negative. BNP within acceptable limits. EKG not concerning for acute ischemia. Chest x-ray revealed atelectasis. CT brain and C-spine revealed pansinusitis. No acute intracranial process. CT cervical spine revealed cervical kyphosis, no acute osseous abnormality. CT revealed compressive atelectasis lung bases. No acute pulmonary embolism. Patient discharged with antibiotics for sinusitis. Patient will initially be discharged with steroids and breathing treatments as well as incentive spirometry. Patient chest pain is likely due to pleurisy. Patient to follow up with primary care provider tomorrow. Patient will be given pulmonology referral for outpatient follow-up as well. Patient return to ER if condition worsens in any way. Case discussed with Dr. Watts. - Lab Data Result diagrams: 10/24/18 18:57 10/24/18 18:57 Lab Results 10/24/18 10/24/18 10/24/18 Range/Units 18:57 18:57 18:57 WBC 22.9 H (3.8-10.6) k/uL RBC 4.08 (3.80-5.40) m/uL Hgb 11.6 (11.4-16.0) gm/dL Hct 35.6 (34.0-46.0) % MCV 87.4 (80.0-100.0) fL MCH 28.4 (25.0-35.0) pg MCHC 32.6 (31.0-37.0) g/dL RDW 14.8 (11.5-15.5) % Plt Count 299 (150-450) k/uL Neutrophils % 80 % Lymphocytes % 13 % Monocytes % 4 % Eosinophils % 1 % Basophils % 0 % Neutrophils # 18.4 H (1.3-7.7) k/uL Lymphocytes # 3.0 (1.0-4.8) k/uL Monocytes # 1.0 (0-1.0) k/uL Eosinophils # 0.3 (0-0.7) k/uL Basophils # 0.1 (0-0.2) k/uL PT 9.8 (9.0-12.0) sec INR 0.9 (<1.2) APTT 18.2 L (22.0-30.0) sec D-Dimer 0.72 H (<0.60) mg/L FEU Sodium 141 (137-145) mmol/L Potassium 3.6 (3.5-5.1) mmol/L Chloride 111 H (98-107) mmol/L Carbon Dioxide 23 (22-30) mmol/L Anion Gap 7 mmol/L BUN 22 H (7-17) mg/dL Creatinine 0.62 (0.52-1.04) mg/dL Est GFR (CKD-EPI)AfAm >90 (>60 ml/min/1.73 sqM) Est GFR (CKD-EPI)NonAf >90 (>60 ml/min/1.73 sqM) Glucose 82 (74-99) mg/dL Calcium 9.7 (8.4-10.2) mg/dL Magnesium 1.9 (1.6-2.3) mg/dL Total Bilirubin 0.3 (0.2-1.3) mg/dL AST 16 (14-36) U/L ALT 17 (9-52) U/L Alkaline Phosphatase 45 (38-126) U/L Troponin I (0.000-0.034) ng/mL NT-Pro-B Natriuret Pep pg/mL Total Protein 6.4 (6.3-8.2) g/dL Albumin 3.8 (3.5-5.0) g/dL Urine Color Urine Appearance (Clear) Urine pH (5.0-8.0) Ur Specific [place] (1.001-1.035) Urine Protein (Negative) Urine Glucose (UA) (Negative) Urine Ketones (Negative) Urine Blood (Negative) Urine Nitrite (Negative) Urine Bilirubin (Negative) Urine Urobilinogen (<2.0) mg/dL Ur Leukocyte Esterase (Negative) Urine RBC (0-5) /hpf Urine WBC (0-5) /hpf Ur Squamous Epith Cells (0-4) /hpf Amorphous Sediment (None) /hpf Urine Bacteria (None) /hpf Urine Mucus (None) /hpf 10/24/18 10/24/18 10/24/18 Range/Units 18:57 18:57 19:20 WBC (3.8-10.6) k/uL RBC (3.80-5.40) m/uL Hgb (11.4-16.0) gm/dL Hct (34.0-46.0) % MCV (80.0-100.0) fL MCH (25.0-35.0) pg MCHC (31.0-37.0) g/dL RDW (11.5-15.5) % Plt Count (150-450) k/uL Neutrophils % % Lymphocytes % % Monocytes % % Eosinophils % % Basophils % % Neutrophils # (1.3-7.7) k/uL Lymphocytes # (1.0-4.8) k/uL Monocytes # (0-1.0) k/uL Eosinophils # (0-0.7) k/uL Basophils # (0-0.2) k/uL PT (9.0-12.0) sec INR (<1.2) APTT (22.0-30.0) sec D-Dimer (<0.60) mg/L FEU Sodium (137-145) mmol/L Potassium (3.5-5.1) mmol/L Chloride (98-107) mmol/L Carbon Dioxide (22-30) mmol/L Anion Gap mmol/L BUN (7-17) mg/dL Creatinine (0.52-1.04) mg/dL Est GFR (CKD-EPI)AfAm (>60 ml/min/1.73 sqM) Est GFR (CKD-EPI)NonAf (>60 ml/min/1.73 sqM) Glucose (74-99) mg/dL Calcium (8.4-10.2) mg/dL Magnesium (1.6-2.3) mg/dL Total Bilirubin (0.2-1.3) mg/dL AST (14-36) U/L ALT (9-52) U/L Alkaline Phosphatase (38-126) U/L Troponin I <0.012 (0.000-0.034) ng/mL NT-Pro-B Natriuret Pep 725 pg/mL Total Protein (6.3-8.2) g/dL Albumin (3.5-5.0) g/dL Urine Color Light Yellow Urine Appearance Cloudy H (Clear) Urine pH 7.0 (5.0-8.0) Ur Specific [place] 1.015 (1.001-1.035) Urine Protein Negative (Negative) Urine Glucose (UA) Negative (Negative) Urine Ketones Negative (Negative) Urine Blood Negative (Negative) Urine Nitrite Negative (Negative) Urine Bilirubin Negative (Negative) Urine Urobilinogen <2.0 (<2.0) mg/dL Ur Leukocyte Esterase Negative (Negative) Urine RBC 1 (0-5) /hpf Urine WBC 3 (0-5) /hpf Ur Squamous Epith Cells 10 H (0-4) /hpf Amorphous Sediment Rare H (None) /hpf Urine Bacteria Many H (None) /hpf Urine Mucus Rare H (None) /hpf - EKG Data -: EKG Interpreted by Me (and dr watts) EKG Comments: Ventricular rate 79, [place] interval 124, QRS 84, QT/QTC 394/45. Normal sinus rhythm. No concern for acute ischemia. Disposition Clinical Impression: Sinusitis, Asthma exacerbation, Pleurisy Disposition: HOME SELF-CARE Condition: Stable Instructions (If sedation given, give patient instructions): Asthma (ED), How t o Use an Incentive Spirometer (ED), Sinusitis (ED) Additional Instructions: Patient to adhere to previously discussed treatment plan and will take medication(s) as directed. Patient to follow up with PCP in 1-2 days. Patient to return to ED if symptoms do not improve. Take Medications as directed. Follow up with primary care provider in 1-2 days. Follow up with pulmonology consult in 1-2 days. Return to ER if condition worsens. Prescriptions: Amoxicillin/Potassium Clav [Augmentin 875-125 Tablet] 1 each PO Q12HR #20 tab predniSONE 50 mg PO DAILY #3 tab Albuterol Inhaler [Ventolin Hfa Inhaler] 1 - 2 puff INHALATION Q4-6H PRN #1 inh aler PRN Reason: Cough Albuterol Nebulized [Ventolin Nebulized] 2.5 mg INHALATION Q4H PRN 10 Days nebu PRN Reason: Cough Is patient prescribed a controlled substance at d/c from ED?: No Referrals: Josse Austin MD [Primary Care Provider] - 1-2 days Alma Goyal MD [STAFF PHYSICIAN] - 1-2 days
--- NOTE | 2018-10-24 18:48 | XR ---
EXAMINATION TYPE: XR chest 2V DATE OF EXAM: 10/24/2018 COMPARISON: 10/21/2018 INDICATION: Difficulty breathing TECHNIQUE: Frontal and lateral views of the chest are obtained. FINDINGS: The heart size is normal. The pulmonary vasculature is normal. There is subtle linear opacity silhouetting the left diaphragm compatible some plate like atelectasis . The lungs are otherwise clear. IMPRESSION: 1. Plate atelectasis along the left diaphragm.
--- NOTE | 2018-10-24 18:52 | CT ---
EXAMINATION TYPE: CT brain stacie wo con DATE OF EXAM: 10/24/2018 COMPARISON: 09/14/2013 HISTORY: Dizziness and headache. CT DLP: 1426.5 mGycm, Automated exposure control for dose reduction was used. CONTRAST: None CT of the brain is performed utilizing 3 mm thick sections through the posterior fossa and 3 mm thick sections through the remaining calvarium. Study is performed within 24 hours of arrival to the hospital. No abnormal hyperdensity is present to suggest an acute intracranial hemorrhage. No mass lesion is evident. No acute infarcts are evident. Ventricles and sulci are appropriate for the patient age. There is an air-fluid level within the right maxillary sinus. Mucosal thickening is within right ethm oid air cells and posterior left ethmoid air cells. There is an air-fluid level within the right sphe noid sinus and right frontal sinus. Correlate for pansinusitis. Mastoid air cells are clear. IMPRESSIONS: 1. No acute intracranial process. 2. Correlate for pansinusitis predominantly on the right lung in the maxillary sphenoid and frontal s inuses CT cervical spine. COMPARISON: None CT of the cervical spine is performed in the axial plane at 2 mm thick sections. Reconstructed image s in the coronal, and sagittal plane are reviewed on the computer. No acute fractures are evident. There is a cervical kyphosis which can be related to patient positioning or muscle spasm. Disc heights are preserved. Vertebral body heights are preserved. No spinal canal stenosis is evident. No neural foraminal stenosis is evident. IMPRESSIONS: 1. Cervical kyphosis which can be related to patient positioning or muscle spasm. 2. No acute osseous abnormality cervical spine
[2018-10-24 19:13] LABS: Basophils # (A) 0.1 k/uL (0-0.2); Basophils % (A) 0 %; Eosinophils # (A) 0.3 k/uL (0-0.7); Eosinophils % (A) 1 %; HCT 35.6 % (34.0-46.0); HGB 11.6 gm/dL (11.4-16.0); Lymphocytes % (A) 13 %; MCH 28.4 pg (25.0-35.0); MCHC 32.6 g/dL (31.0-37.0); MCV 87.4 fL (80.0-100.0); Mean Platelet Volume 7.8; Monocytes % (A) 4 %; Neutrophils # (A) 18.4 k/uL (1.3-7.7); Neutrophils % (A) 80 %; Platelet Count 299 k/uL (150-450); RBC 4.08 m/uL (3.80-5.40); RDW 14.8 % (11.5-15.5); WBC 22.9 k/uL (3.8-10.6)
[2018-10-24 19:27] LABS: ALT 17 U/L (9-52); AST 16 U/L (14-36); Albumin 3.8 g/dL (3.5-5.0); Alkaline Phosphatase 45 U/L (38-126); Anion Gap 7 mmol/L; Blood Urea Nitrogen 22 mg/dL (7-17); Calcium 9.7 mg/dL (8.4-10.2); Carbon Dioxide 23 mmol/L (22-30); Chloride 111 mmol/L (98-107); Glucose 82 mg/dL (74-99); Magnesium 1.9 mg/dL (1.6-2.3); Potassium 3.6 mmol/L (3.5-5.1); Sodium 141 mmol/L (137-145); Total Bilirubin 0.3 mg/dL (0.2-1.3); Total Protein 6.4 g/dL (6.3-8.2)
[2018-10-24 19:43] LABS: INR 0.9 (<1.2); Prothrombin Time 9.8 sec (9.0-12.0)
[2018-10-24 19:44] LABS: D-Dimer 0.72 mg/L FEU (<0.60); Partial Thromboplastin Time 18.2 sec (22.0-30.0)
[2018-10-24] MEDS ORDERED: ACETAMINOPHEN TAB 325 MG TAB PO STA (20:43)
--- NOTE | 2018-10-24 21:32 | CT ---
CT CHEST FOR PULMONARY EMBOLISM. EXAMINATION TYPE: CT chest angio for PE DATE OF EXAM: 10/24/2018 INDICATION: DAVID, chest pain, hx: previous pe [address] DLP: 536.4 mGycm, Automated exposure control for dose reduction was used. CONTRAST: Patient injected with 100 mL of Isovue 300. COMPARISON: 10/22/2018 TECHNIQUE: CT of the chest is performed on a spiral scan at 2 mm thick sections. Study is performed with intravenous contrast timed for evaluation for pulmonary embolism. This will limit additional po rtions of the evaluation. 3-D MIP images reconstructed by the technologist are reviewed on the compu ter in the coronal and sagittal planes. FINDINGS: No persistent filling defects are evident to suggest an acute pulmonary embolism. No mediastinal or hilar adenopathy enlarged by CT criteria is evident. The ascending aorta diameter at the level of the main pulmonary artery is 3.0 cm. The main pulmonary artery diameter at the bifur cation is 3.1 cm. There is compressive atelectasis in the bilateral lung bases. Very minimal right pleural effusion may be present. Limited CT section through the upper abdomen are unremarkable. IMPRESSIONS: 1. Compressive atelectasis bilateral lung bases. 2. No acute pulmonary embolism
[2018-10-24 22:38] LABS: Amorphous Sediment,Urine Rare /hpf; Appearance,Urine Cloudy (Clear); Bacteria,Urine Many /hpf; Bilirubin,Urine Negative (Negative); Blood,Urine Negative (Negative); Color,Urine Light Yellow; Glucose,Urine (UA) Negative (Negative); Ketones,Urine Negative (Negative); Leukocyte Esterase,Urine Negative (Negative); Mucus,Urine Rare /hpf; Nitrite,Urine Negative (Negative); Protein,Urine Negative (Negative); RBC,Urine 1 /hpf (0-5); Specific Gravity,Urine 1.015 (1.001-1.035); Squamous Epithelial Cell,Urine 10 /hpf (0-4); Urobilinogen,Urine <2.0 mg/dL (<2.0); WBC,Urine 3 /hpf (0-5)
[2018-10-24 22:54] VITALS: BP 138/85; PULSE 92; RESP 18
== END 2018-10-24 23:13 | disposition home or self-care (01) ==
LOC: EC 17:40
DX: J45.901 Unspecified asthma with (acute) exacerbation (principal); J32.9 Chronic sinusitis, unspecified; R09.1 Pleurisy; G89.29 Other chronic pain; M79.7 Fibromyalgia; J98.11 Atelectasis; R55 Syncope and collapse; F41.9 Anxiety disorder, unspecified; F31.9 Bipolar disorder, unspecified; F90.9 Attention-deficit hyperactivity disorder, unspecified type; F17.200 Nicotine dependence, unspecified, uncomplicated; Z79.51 Long term (current) use of inhaled steroids; Z79.899 Other long term (current) drug therapy; Z86.711 Personal history of pulmonary embolism
CPT/HCPCS: 36415; 94640; 93005; 85379; 83880; 80053; 83735; 84484; 85025; 85610; 85730; 81001; 71046; 72125; 70450; 71275; 99285; 96374; 96361 ×2; J2930; Q9967

== ENCOUNTER 2019-02-18 17:00 | Emergency (ER) | payer BC, MEDICARE ==
[2019-02-18 17:25] VITALS: RESP 18
[2019-02-18] MEDS ORDERED: SODIUM CHLORIDE 0.9% 1,000 ML IV STA (17:39)
[2019-02-18] MEDS ORDERED: MORPHINE SULFATE 4 MG/ML SYRINGE IV STA (18:13)
--- NOTE | 2019-02-18 18:30 | ED ---
General Adult HPI - General Chief complaint: Recheck/Abnormal Lab/Rx Stated complaint: Chest pain, headache Time Seen by Provider: 02/18/19 17:39 Source: patient Mode of arrival: wheelchair Limitations: no limitations - History of Present Illness Initial comments: Dictation was produced using [employer] dictation software. please excuse any grammatical, word or spelling errors. Chief Complaint: 39-year-old female presents with headache, head contusion, fall, chest pain or shortness of breath. History of Present Illness: A 89-year-old female she presents today with the [place] mentioned complaints. Patient states she was admitted to the hospital several months ago for pulmonary embolus. Since then she's been having persistent symptoms. Over the last week she feels like her symptoms escalated rather quickly. She states she's been feeling nauseated. Patient also has a headache. She has a history of migraines. She's reports that her headache is similar to her normal headaches off of a little bit more severe. Patient's denies any thunderclap characteristic. Denies any neck stiffness that is new. She does complain of chronic neck pain. She also states that she fell today. She did report striking the back of her head at the occiput. Patient also has sharp chest pain that's substernal. She states it radiates to her back and right jaw. She reports that her symptoms today are similar to the symptoms she had when she was diagnosed with a pulmonary embolus. Patient denies any lower extremity complaints. The ROS documented in this emergency department record has been reviewed and confirmed by me. Those systems with pertinent positive or negative responses have been documented in the HPI. All other systems are other negative and/or noncontributory. PHYSICAL EXAM: General Impression: Alert and oriented x3, not in acute distress HEENT: Normocephalic atraumatic, extra-ocular movements intact, pupils equal and reactive to light bilaterally, mucous membranes moist. Cardiovascular: Heart regular rate and rhythm, S1&S2 audible, no murmurs, rubs or gallops Chest: Lungs clear to auscultation bilaterally, no rhonchi, no wheeze, no rales Abdomen: Bowel sounds present, abdomen soft, non-tender, non-distended, no organomegaly Musculoskeletal: Pulses present and equal in all extremities, no peripheral edema Motor: no focal deficits noted Neurological: CN II-XII grossly intact, no focal motor or sensory deficits noted Skin: Intact with no visualized rashes Psych: Normal affect and mood ED course: 31-year-old female with multiple complaints. Her chief complaint today is mainly her chest pain, shortness of breath and her fall. Signs upon arrival shows heart rate of 106, rest of vital signs within acceptable limits. His chest pain is atypical. No concern for acute coronary syndrome. Laboratory evaluation obtained. CBC, d-dimer, metabolic panel, troponin, urinalysis obta ined showing no acute processes. Chest x-ray shows no acute processes. Patient was observed in emergency department for any stable medical condition. Patient is clinically well-appearing. At this point there is no clear reason for patient's symptoms. She has no high-risk features. She is told to follow-up with her primary care physician. Return parameters discussed. Patient clear for discharge. Patient has mildly low magnesium. She is told to increase her magnesium in her diet. - Related Data Home Medications Medication Instructions Recorded Confirmed ALPRAZolam [Xanax] 1 mg PO TID 12/13/13 02/18/19 Gabapentin [Neurontin] 300 mg PO TID 12/13/13 02/18/19 Hydrocodone/Acetaminophen [[place] 1 tab PO Q6H PRN 12/13/13 02/18/19 10-325] SUMAtriptan SUCCINATE [Imitrex] 4 mg SQ DAILY PRN 12/13/13 02/18/19 Cetirizine HCl [Zyrtec] 10 mg PO HS 11/01/15 02/18/19 Cyclobenzaprine [Flexeril] 10 mg PO TID PRN 11/01/15 02/18/19 Fluticasone Nasal [place] [Flonase 1 spray EA NOSTRIL BID PRN 11/01/15 02/18/19 Nasal [place]] HYDROmorphone HCL [Dilaudid] 8 mg PO Q4-6H PRN 11/01/15 02/18/19 SUMAtriptan SUCCINATE [Imitrex] 100 mg PO DAILY PRN 11/01/15 02/18/19 Celecoxib [CeleBREX] 200 mg PO BID 08/14/16 02/18/19 DULoxetine HCL [Cymbalta] 60 mg PO DAILY 08/14/16 02/18/19 lamoTRIgine [LaMICtal] 100 mg PO DAILY 08/14/16 02/18/19 Omeprazole 20 mg PO DAILY 04/29/18 02/18/19 Dextroamphetamine/Amphetamine 20 mg PO TID 10/21/18 02/18/19 [Adderall] Albuterol Inhaler [Ventolin [place]fa 2 puff INHALATION RT-Q6H PRN 02/18/19 02/18/19 Inhaler] Melatonin 10 mg PO HS PRN 02/18/19 02/18/19 Previous Rx's Medication Instructions Recorded Ipratropium-Albuterol Nebulize 3 ml INHALATION Q4H PRN #30 neb 10/21/18 [Duoneb 0.5 mg-3 mg/3 ml Soln] Albuterol Nebulized [Ventolin 2.5 mg INHALATION Q4H PRN 10 Days 10/24/18 Nebulized] nebu Allergies Allergy/AdvReac Type Severity Reaction Status Date / Time No Known Allergies Allergy Verified 02/18/19 17:54 Review of Systems ROS Statement: Those systems with pertinent positive or pertinent negative responses have been documented in the HPI. ROS Other: All systems not noted in ROS Statement are negative. Past Medical History Past Medical History: Fibromyalgia, Pulmonary Embolus (PE) Additional Past Medical History / Comment(s): chronic back pain, ankylosing s pondylitis, ruling out multiple sclerosis, chronic constipation History of Any Multi-Drug Resistant Organisms: None Reported Past Surgical History: Tubal Ligation Additional Past Surgical History / Comment(s): d&c Past Psychological History: ADD/ADHD, Anxiety, Bipolar, Depression Smoking Status: Current every day smoker Past Alcohol Use History: None Reported Past Drug Use History: None Reported - Past Family History Son(s) History Unknown: Yes Additional Family Medical History / Comment(s): MRSA on face Mother Family Medical History: Fibromyalgia, Musculoskeletal Disorder General Exam Limitations: no limitations Course Vital Signs 02/18/19 17:22 Temperature 98.4 F Pulse Rate 106 H Respiratory 18 Rate Blood Pressure 110/68 O2 Sat by Pulse 95 Oximetry Medical Decision Making - Lab Data Result diagrams: 02/18/19 18:30 02/18/19 18:30 Lab Results 02/18/19 02/18/19 02/18/19 Range/Units 18:30 18:30 18:30 WBC 9.1 (3.8-10.6) k/uL RBC 4.52 (3.80-5.40) m/uL Hgb 12.9 (11.4-16.0) gm/dL Hct 39.0 (34.0-46.0) % MCV 86.3 (80.0-100.0) fL MCH 28.5 (25.0-35.0) pg MCHC 33.0 (31.0-37.0) g/dL RDW 15.6 H (11.5-15.5) % Plt Count 257 (150-450) k/uL Neutrophils % 59 % Lymphocytes % 28 % Monocytes % 4 % Eosinophils % 6 % Basophils % 1 % Neutrophils # 5.4 (1.3-7.7) k/uL Lymphocytes # 2.6 (1.0-4.8) k/uL Monocytes # 0.4 (0-1.0) k/uL Eosinophils # 0.5 (0-0.7) k/uL Basophils # 0.1 (0-0.2) k/uL D-Dimer (<0.60) mg/L FEU Sodium 140 (137-145) mmol/L Potassium 3.9 (3.5-5.1) mmol/L Chloride 104 (98-107) mmol/L Carbon Dioxide 28 (22-30) mmol/L Anion Gap 8 mmol/L BUN 13 (7-17) mg/dL Creatinine 0.75 (0.52-1.04) mg/dL Est GFR (CKD-EPI)AfAm >90 (>60 ml/min/1.73 sqM) Est GFR (CKD-EPI)NonAf >90 (>60 ml/min/1.73 sqM) Glucose 86 (74-99) mg/dL Calcium 9.7 (8.4-10.2) mg/dL Magnesium 1.8 (1.6-2.3) mg/dL Troponin I <0.012 (0.000-0.034) ng/mL Urine Color Urine Appearance (Clear) Urine pH (5.0-8.0) Ur Specific [place] (1.001-1.035) Urine Protein (Negative) Urine Glucose (UA) (Negative) Urine Ketones (Negative) Urine Blood (Negative) Urine Nitrite (Negative) Urine Bilirubin (Negative) Urine Urobilinogen (<2.0) mg/dL Ur Leukocyte Esterase (Negative) Urine RBC (0-5) /hpf Urine WBC (0-5) /hpf Ur Squamous Epith Cells (0-4) /hpf Urine HCG, Qual (Not Detectd) 02/18/19 02/18/19 02/18/19 Range/Units 18:30 20:51 20:51 WBC (3.8-10.6) k/uL RBC (3.80-5.40) m/uL Hgb (11.4-16.0) gm/dL Hct (34.0-46.0) % MCV (80.0-100.0) fL MCH (25.0-35.0) pg MCHC (31.0-37.0) g/dL RDW (11.5-15.5) % Plt Count (150-450) k/uL Neutrophils % % Lymphocytes % % Monocytes % % Eosinophils % % Basophils % % Neutrophils # (1.3-7.7) k/uL Lymphocytes # (1.0-4.8) k/uL Monocytes # (0-1.0) k/uL Eosinophils # (0-0.7) k/uL Basophils # (0-0.2) k/uL D-Dimer 0.46 (<0.60) mg/L FEU Sodium (137-145) mmol/L Potassium (3.5-5.1) mmol/L Chloride (98-107) mmol/L Carbon Dioxide (22-30) mmol/L Anion Gap mmol/L BUN (7-17) mg/dL Creatinine (0.52-1.04) mg/dL Est GFR (CKD-EPI)AfAm (>60 ml/min/1.73 sqM) Est GFR (CKD-EPI)NonAf (>60 ml/min/1.73 sqM) Glucose (74-99) mg/dL Calcium (8.4-10.2) mg/dL Magnesium (1.6-2.3) mg/dL Troponin I (0.000-0.034) ng/mL Urine Color Light Yellow Urine Appearance Clear (Clear) Urine pH 6.5 (5.0-8.0) Ur Specific [place] 1.005 (1.001-1.035) Urine Protein Negative (Negative) Urine Glucose (UA) Negative (Negative) Urine Ketones Negative (Negative) Urine Blood Large H (Negative) Urine Nitrite Negative (Negative) Urine Bilirubin Negative (Negative) Urine Urobilinogen <2.0 (<2.0) mg/dL Ur Leukocyte Esterase Negative (Negative) Urine RBC 37 H (0-5) /hpf Urine WBC <1 (0-5) /hpf Ur Squamous Epith Cells 1 (0-4) /hpf Urine HCG, Qual Not Detected (Not Detectd) Disposition Clinical Impression: Chest pain Disposition: HOME SELF-CARE Condition: Good Instructions (If sedation given, give patient instructions): Chest Pain (ED) Is patient prescribed a controlled substance at d/c from ED?: No Referrals: Josse Austin MD [Primary Care Provider] - 1-2 days Time of Disposition: 21:35
--- NOTE | 2019-02-18 18:41 | XR ---
EXAMINATION TYPE: XR chest 2V DATE OF EXAM: 02/18/2019 COMPARISON: 10/24/2018 HISTORY: Dizziness TECHNIQUE: Frontal and lateral views of the chest are obtained. FINDINGS: Heart and mediastinum are normal. Lungs are clear. Diaphragm is normal. Bony thorax appear s normal. IMPRESSION: Normal chest. There is clearing of the mild left basilar infiltrate compared to last exa m.
[2019-02-18 19:24] LABS: Basophils # (A) 0.1 k/uL (0-0.2); Basophils % (A) 1 %; Eosinophils # (A) 0.5 k/uL (0-0.7); Eosinophils % (A) 6 %; HGB 12.9 gm/dL (11.4-16.0); Lymphocytes # (A) 2.6 k/uL (1.0-4.8); Lymphocytes % (A) 28 %; MCH 28.5 pg (25.0-35.0); MCV 86.3 fL (80.0-100.0); Mean Platelet Volume 7.4; Monocytes # (A) 0.4 k/uL (0-1.0); Monocytes % (A) 4 %; Neutrophils # (A) 5.4 k/uL (1.3-7.7); Neutrophils % (A) 59 %; Platelet Count 257 k/uL (150-450); RBC 4.52 m/uL (3.80-5.40); RDW 15.6 % (11.5-15.5); WBC 9.1 k/uL (3.8-10.6)
[2019-02-18 19:39] LABS: African American GFR (CKD) >90 (>60 ml/min/1.73 sqM); Anion Gap 8 mmol/L; Blood Urea Nitrogen 13 mg/dL (7-17); Calcium 9.7 mg/dL (8.4-10.2); Carbon Dioxide 28 mmol/L (22-30); Chloride 104 mmol/L (98-107); Glucose 86 mg/dL (74-99); Magnesium 1.8 mg/dL (1.6-2.3); Potassium 3.9 mmol/L (3.5-5.1); Sodium 140 mmol/L (137-145)
[2019-02-18] MEDS ORDERED: METOCLOPRAMIDE 5 MG/ML 2 ML VIAL IVP STA (19:58)
[2019-02-18] MEDS ORDERED: LORazepam 2 MG/ML INJ IV STA (20:38)
[2019-02-18 21:13] LABS: Appearance,Urine Clear (Clear); Bilirubin,Urine Negative (Negative); Blood,Urine Large (Negative); Color,Urine Light Yellow; Glucose,Urine (UA) Negative (Negative); Ketones,Urine Negative (Negative); Leukocyte Esterase,Urine Negative (Negative); Nitrite,Urine Negative (Negative); PH, Urine 6.5 (5.0-8.0); Protein,Urine Negative (Negative); RBC,Urine 37 /hpf (0-5); Specific Gravity,Urine 1.005 (1.001-1.035); Squamous Epithelial Cell,Urine 1 /hpf (0-4); Urobilinogen,Urine <2.0 mg/dL (<2.0)
[2019-02-18 21:57] VITALS: BP 128/72; PULSE 68; TEMP 97.9
== END 2019-02-18 21:57 | disposition home or self-care (01) ==
LOC: EC 17:00
DX: R07.89 Other chest pain (principal); E83.42 Hypomagnesemia; R11.0 Nausea; R51 Headache; M54.2 Cervicalgia; M54.9 Dorsalgia, unspecified; R68.84 Jaw pain; R06.02 Shortness of breath; M79.7 Fibromyalgia; G89.29 Other chronic pain; F31.9 Bipolar disorder, unspecified; F41.9 Anxiety disorder, unspecified; F90.9 Attention-deficit hyperactivity disorder, unspecified type; F17.200 Nicotine dependence, unspecified, uncomplicated; Z79.1 Long term (current) use of non-steroidal anti-inflammatories (NSAID); Z79.899 Other long term (current) drug therapy; Z86.711 Personal history of pulmonary embolism; Z86.69 Personal history of other diseases of the nervous system and sense organs; W19.XXXA Unspecified fall, initial encounter
CPT/HCPCS: 36415; 93005; 85379; 80048; 83735; 84484; 85025; 81001; 81025; 71046; 99285; 96374; 96375 ×2; 96361; J2060; J2270; J2765

== ENCOUNTER 2021-01-07 14:12 | Emergency (ER) | payer OTHER, MEDICARE ==
[2021-01-07 15:04] VITALS: BP 107/77; PULSE 127; RESP 18; TEMP 99
[2021-01-07] MEDS ORDERED: diphenhydrAMINE 50 MG/ML 1 ML VIAL IVP STA (16:00)
[2021-01-07] MEDS ORDERED: HYDROmorphone 1 MG/ML 1 ML SYRINGE IVP STA (16:00)
[2021-01-07] MEDS ORDERED: SODIUM CHLORIDE 0.9% 1,000 ML IV ONE (16:00)
[2021-01-07] MEDS ORDERED: METOCLOPRAMIDE 5 MG/ML 2 ML VIAL IVP STA (16:00)
--- NOTE | 2021-01-07 16:08 | ED ---
Headache HPI - General Chief Complaint: Headache Stated Complaint: Body Aches,Headache Time Seen by Provider: 01/07/21 15:48 Mode of arrival: ambulatory Limitations: no limitations - History of Present Illness Initial Comments: 40 year-old female patient presents to the emergency apartment today for evaluation of headache and generalized body pain. Patient states she's been hav ing headache with severe sharp stabbing pains in her "brain" for the last 3 days. Patient states that she has generalized body pain also going on for the last 3 days. States she does have light sensitivity. Nausea with no vomiting. Denies numbness, tingling, weakness to the extremities. Does take hydromorphone, [place], and anti-inflammatories at home which have not been helping with her pain. Denies any rash, fever, or chills. Denies any recent injuries or accidents. Does have history of fibromyalgia and migraines but states this is much different than her usual pain. States she gets the sharp stabbing pain to the back of her head and into both eyes. States she has been having elevated heart rates into the 130s at rest. Patient denies any recent cough, shortness of breath, chest pain, abdominal pain, diarrhea, constipation, back pain, hematuria, dysuria, urinary urgency, urinary frequency, or any other complaints. - Related Data Home Medications Medication Instructions Recorded Confirmed ALPRAZolam [Xanax] 1 mg PO TID 12/13/13 02/18/19 Gabapentin [Neurontin] 300 mg PO TID 12/13/13 02/18/19 Hydrocodone/Acetaminophen [[place] 1 tab PO Q6H PRN 12/13/13 02/18/19 10-325] SUMAtriptan SUCCINATE [Imitrex] 4 mg SQ DAILY PRN 12/13/13 02/18/19 Cetirizine HCl [Zyrtec] 10 mg PO HS 11/01/15 02/18/19 Cyclobenzaprine [Flexeril] 10 mg PO TID PRN 11/01/15 02/18/19 Fluticasone Nasal [place] [Flonase 1 spray EA NOSTRIL BID PRN 11/01/15 02/18/19 Nasal [place]] HYDROmorphone HCL [Dilaudid] 8 mg PO Q4-6H PRN 11/01/15 02/18/19 SUMAtriptan SUCCINATE [Imitrex] 100 mg PO DAILY PRN 11/01/15 02/18/19 Celecoxib [CeleBREX] 200 mg PO BID 08/14/16 02/18/19 DULoxetine HCL [Cymbalta] 60 mg PO DAILY 08/14/16 02/18/19 lamoTRIgine [LaMICtal] 100 mg PO DAILY 08/14/16 02/18/19 Omeprazole 20 mg PO DAILY 04/29/18 02/18/19 Dextroamphetamine/Amphetamine 20 mg PO TID 10/21/18 02/18/19 [Adderall] Albuterol Inhaler (Mhu) [Ventolin 2 puff INHALATION RT-Q6H PRN 02/18/19 02/18/19 Hfa Inhaler (Mhu)] Melatonin 10 mg PO HS PRN 02/18/19 02/18/19 Previous Rx's Medication Instructions Recorded Ipratropium-Albuterol Nebulize 3 ml INHALATION Q4H PRN #30 neb 10/21/18 [Duoneb 0.5 mg-3 mg/3 ml Soln] Albuterol Nebulized [Ventolin 2.5 mg INHALATION Q4H PRN 10 Days 10/24/18 Nebulized] nebu Allergies Allergy/AdvReac Type Severity Reaction Status Date / Time No Known Allergies Allergy Verified 01/07/21 15:04 Review of Systems ROS Statement: Those systems with pertinent positive or pertinent negative responses have been documented in the HPI. ROS Other: All systems not noted in ROS Statement are negative. Past Medical History Past Medical History: Fibromyalgia, Pulmonary Embolus (PE) Additional Past Medical History / Comment(s): chronic back pain, ankylosing spondylitis, ruling out multiple sclerosis, chronic constipation, History of Any Multi-Drug Resistant Organisms: None Reported Past Surgical History: Tubal Ligation Additional Past Surgical History / Comment(s): d&c, Past Psychological History: ADD/ADHD, Anxiety, Bipolar, Depression Smoking Status: Current every day smoker Past Alcohol Use History: Occasional Past Drug Use History: None Reported - Past Family History Son(s) History Unknown: Yes Additional Family Medical History / Comment(s): MRSA on face Mother Family Medical History: Fibromyalgia, Musculoskeletal Disorder General Exam Limitations: no limitations General appearance: alert, in no apparent distress, other (This is a well-developed, well-nourished adult female patient in no acute distress. Vital signs upon presentation are temperature 99.0F, pulse 127, respirations 18, blood pressure 107/77, pulse ox 95% on room air.) Eye exam: Present: normal appearance, PERRL, EOMI. Absent: scleral icterus, conjunctival injection, nystagmus, periorbital swelling ENT exam: Present: normal exam, normal oropharynx, mucous membranes moist Respiratory exam: Present: normal lung sounds bilaterally. Absent: respiratory distress, wheezes, rales, rhonchi, stridor Cardiovascular Exam: Present: normal rhythm, tachycardia, normal heart sounds. Absent: systolic murmur, diastolic murmur, rubs, gallop, clicks GI/Abdominal exam: Present: soft, normal bowel sounds. Absent: distended, tenderness, guarding, rebound, rigid Neurological exam: Present: alert, oriented X3, CN II-XII intact Psychiatric exam: Present: normal affect, normal mood Skin exam: Present: warm, dry, intact, normal color. Absent: rash Course Vital Signs 01/07/21 15:00 Temperature 99.0 F Pulse Rate 127 H Respiratory 18 Rate Blood Pressure 107/77 O2 Sat by Pulse 95 Oximetry Medical Decision Making - Medical Decision Making 40-year-old female patient presents the emergency department today for evaluation of severe headache and body aches. Physical examination is unremarkable. She is neurologically intact with no focal deficits. Labs reviewed and are unremarkable. CT brain negative. She was given IV medication here. Upon reevaluation she is resting comfortably though complaining about the lights being by in the hallway where her care is being received. She will be given additional dose of pain medicine. Discharge and follow-up with her primary care physician for recheck in 1-2 days. Return parameters discussed in detail. She verbalizes understanding and agrees this plan. Case discussed with my attending Dr. Felix. - Lab Data Result diagrams: 01/07/21 16:05 01/07/21 16:05 Lab Results 01/07/21 01/07/21 01/07/21 Range/Units 15:07 16:05 16:05 WBC 9.3 (3.8-10.6) k/uL RBC 4.62 (3.80-5.40) m/uL Hgb 13.1 (11.4-16.0) gm/dL Hct 40.2 (34.0-46.0) % MCV 87.0 (80.0-100.0) fL MCH 28.3 (25.0-35.0) pg MCHC 32.6 (31.0-37.0) g/dL RDW 15.2 (11.5-15.5) % Plt Count 313 (150-450) k/uL MPV 7.3 Neutrophils % 55 % Lymphocytes % 34 % Monocytes % 6 % Eosinophils % 3 % Basophils % 1 % Neutrophils # 5.1 (1.3-7.7) k/uL Lymphocytes # 3.1 (1.0-4.8) k/uL Monocytes # 0.5 (0-1.0) k/uL Eosinophils # 0.3 (0-0.7) k/uL Basophils # 0.1 (0-0.2) k/uL Sodium 137 (137-145) mmol/L Potassium 4.2 (3.5-5.1) mmol/L Chloride 106 (98-107) mmol/L Carbon Dioxide 23 (22-30) mmol/L Anion Gap 8 mmol/L BUN 12 (7-17) mg/dL Creatinine 0.73 (0.52-1.04) mg/dL Est GFR (CKD-EPI)AfAm >90 (>60 ml/min/1.73 sqM) Est GFR (CKD-EPI)NonAf >90 (>60 ml/min/1.73 sqM) Glucose 84 (74-99) mg/dL Calcium 9.6 (8.4-10.2) mg/dL Magnesium 1.8 (1.6-2.3) mg/dL Total Bilirubin 0.3 (0.2-1.3) mg/dL AST 16 (14-36) U/L ALT 13 (4-34) U/L Alkaline Phosphatase 56 (38-126) U/L Creatine Kinase 34 (30-135) U/L Total Protein 7.0 (6.3-8.2) g/dL Albumin 4.4 (3.5-5.0) g/dL TSH 2.150 (0.465-4.680) mIU/L Urine Color Urine Appearance (Clear) Urine pH (5.0-8.0) Ur Specific [place] (1.001-1.035) Urine Protein (Negative) Urine Glucose (UA) (Negative) Urine Ketones (Negative) Urine Blood (Negative) Urine Nitrite (Negative) Urine Bilirubin (Negative) Urine Urobilinogen (<2.0) mg/dL Ur Leukocyte Esterase (Negative) Urine RBC (0-5) /hpf Urine WBC (0-5) /hpf Ur Squamous Epith Cells (0-4) /hpf Amorphous Sediment (None) /hpf Urine Bacteria (None) /hpf Coronavirus (PCR) Not Detected (Not Detectd) 01/07/21 Range/Units 16:45 WBC (3.8-10.6) k/uL RBC (3.80-5.40) m/uL Hgb (11.4-16.0) gm/dL Hct (34.0-46.0) % MCV (80.0-100.0) fL MCH (25.0-35.0) pg MCHC (31.0-37.0) g/dL RDW (11.5-15.5) % Plt Count (150-450) k/uL MPV Neutrophils % % Lymphocytes % % Monocytes % % Eosinophils % % Basophils % % Neutrophils # (1.3-7.7) k/uL Lymphocytes # (1.0-4.8) k/uL Monocytes # (0-1.0) k/uL Eosinophils # (0-0.7) k/uL Basophils # (0-0.2) k/uL Sodium (137-145) mmol/L Potassium (3.5-5.1) mmol/L Chloride (98-107) mmol/L Carbon Dioxide (22-30) mmol/L Anion Gap mmol/L BUN (7-17) mg/dL Creatinine (0.52-1.04) mg/dL Est GFR (CKD-EPI)AfAm (>60 ml/min/1.73 sqM) Est GFR (CKD-EPI)NonAf (>60 ml/min/1.73 sqM) Glucose (74-99) mg/dL Calcium (8.4-10.2) mg/dL Magnesium (1.6-2.3) mg/dL Total Bilirubin (0.2-1.3) mg/dL AST (14-36) U/L ALT (4-34) U/L Alkaline Phosphatase (38-126) U/L Creatine Kinase (30-135) U/L Total Protein (6.3-8.2) g/dL Albumin (3.5-5.0) g/dL TSH (0.465-4.680) mIU/L Urine Color Light Yellow Urine Appearance Cloudy H (Clear) Urine pH 5.5 (5.0-8.0) Ur Specific [place] 1.005 (1.001-1.035) Urine Protein Negative (Negative) Urine Glucose (UA) Negative (Negative) Urine Ketones Negative (Negative) Urine Blood Large H (Negative) Urine Nitrite Negative (Negative) Urine Bilirubin Negative (Negative) Urine Urobilinogen <2.0 (<2.0) mg/dL Ur Leukocyte Esterase Negative (Negative) Urine RBC 5 (0-5) /hpf Urine WBC 2 (0-5) /hpf Ur Squamous Epith Cells 2 (0-4) /hpf Amorphous Sediment Rare H (None) /hpf Urine Bacteria Occasional H (None) /hpf Coronavirus (PCR) (Not Detectd) - EKG Data -: EKG Interpreted by Fl EKG Comments: EKG obtained at 1625 shows sinus tachycardia with a ventricular rate of 103, MD interval 128, QRS duration 92, QT 348, QTC 455. No evidence of ST elevation or depression. - Radiology Data Radiology results: report reviewed, image reviewed CT brain without contrast was obtained. Report was reviewed in its entirety. Impression by Dr. Macias shows no acute intracranial abnormalities seen. Disposition Clinical Impression: Headache, Body aches Disposition: HOME SELF-CARE Condition: Good Instructions (If sedation given, give patient instructions): Acute Headache (ED) Additional Instructions: Increase fluids. Rest. Follow-up through primary care physician for recheck in 1-2 days. Return to the emergency department for any new, worsening, or concerning symptoms. Is patient prescribed a controlled substance at d/c from ED?: No Referrals: Josse Austin MD [Primary Care Provider] - 1-2 days Time of Disposition: 17:34
[2021-01-07 16:33] LABS: Basophils # (A) 0.1 k/uL (0-0.2); Basophils % (A) 1 %; Eosinophils # (A) 0.3 k/uL (0-0.7); Eosinophils % (A) 3 %; HCT 40.2 % (34.0-46.0); HGB 13.1 gm/dL (11.4-16.0); Lymphocytes # (A) 3.1 k/uL (1.0-4.8); Lymphocytes % (A) 34 %; MCH 28.3 pg (25.0-35.0); MCHC 32.6 g/dL (31.0-37.0); Mean Platelet Volume 7.3; Monocytes # (A) 0.5 k/uL (0-1.0); Monocytes % (A) 6 %; Neutrophils # (A) 5.1 k/uL (1.3-7.7); Neutrophils % (A) 55 %; Platelet Count 313 k/uL (150-450); RBC 4.62 m/uL (3.80-5.40); RDW 15.2 % (11.5-15.5); WBC 9.3 k/uL (3.8-10.6)
[2021-01-07 16:41] LABS: ALT 13 U/L (4-34); AST 16 U/L (14-36); African American GFR (CKD) >90 (>60 ml/min/1.73 sqM); Albumin 4.4 g/dL (3.5-5.0); Alkaline Phosphatase 56 U/L (38-126); Anion Gap 8 mmol/L; Blood Urea Nitrogen 12 mg/dL (7-17); Calcium 9.6 mg/dL (8.4-10.2); Carbon Dioxide 23 mmol/L (22-30); Chloride 106 mmol/L (98-107); Creatine Kinase 34 U/L (30-135); Glucose 84 mg/dL (74-99); Magnesium 1.8 mg/dL (1.6-2.3); Non-African American GFR(CKD) >90 (>60 ml/min/1.73 sqM); Potassium 4.2 mmol/L (3.5-5.1); Sodium 137 mmol/L (137-145); Total Bilirubin 0.3 mg/dL (0.2-1.3)
[2021-01-07 17:05] LABS: Amorphous Sediment,Urine Rare /hpf; Appearance,Urine Cloudy (Clear); Bacteria,Urine Occasional /hpf; Bilirubin,Urine Negative (Negative); Blood,Urine Large (Negative); Color,Urine Light Yellow; Glucose,Urine (UA) Negative (Negative); Ketones,Urine Negative (Negative); Leukocyte Esterase,Urine Negative (Negative); Nitrite,Urine Negative (Negative); PH, Urine 5.5 (5.0-8.0); Protein,Urine Negative (Negative); RBC,Urine 5 /hpf (0-5); Specific Gravity,Urine 1.005 (1.001-1.035); Squamous Epithelial Cell,Urine 2 /hpf (0-4); Urobilinogen,Urine <2.0 mg/dL (<2.0); WBC,Urine 2 /hpf (0-5)
--- NOTE | 2021-01-07 17:05 | CT ---
EXAMINATION TYPE: CT brain wo con DATE OF EXAM: 01/07/2021 COMPARISON: 10/24/2018 HISTORY: 40-year-old female Headache with visual disturbance. TECHNIQUE: Examination was done in axial plane without intravenous contrast. Coronal and sagittal r econstructions performed. CT DLP: 1158.4 mGycm Automated exposure control for dose reduction was used. FINDINGS: There is no evidence of acute intracranial hemorrhage, acute ischemic changes, mass, mass-effect, or extra-axial fluid collection. There is no effacement of cerebral sulci or basal subarachnoid cister ns. There is no hydrocephalus. There is no midline shift. [place]-white matter distinction is preserv ed. Paranasal sinuses and mastoid air cells are pneumatized. Orbits and globes are intact. IMPRESSION: No acute intracranial abnormality seen.
[2021-01-07] MEDS ORDERED: HYDROmorphone 0.5 MG/0.5 ML SYRINGE IVP STA (17:33)
== END 2021-01-07 18:05 | disposition home or self-care (01) ==
LOC: EC 14:12
DX: R51.9 Headache, unspecified (principal); M79.10 Myalgia, unspecified site; F90.9 Attention-deficit hyperactivity disorder, unspecified type; F41.9 Anxiety disorder, unspecified; F32.9 Major depressive disorder, single episode, unspecified; F17.200 Nicotine dependence, unspecified, uncomplicated; Z98.51 Tubal ligation status; Z20.822 Contact with and (suspected) exposure to COVID-19
CPT/HCPCS: 99284; 96374; 96375 ×2; 96376; 96361 ×2; 36415; 93005; 80053; 84443; 82550; 83735; 85025; 81001; 87635; 70450; J1200; J2765; J1170 ×2

== ENCOUNTER 2021-01-19 19:23 | Emergency (ER) | payer OTHER, MEDICARE ==
[2021-01-19 19:33] VITALS: TEMP 98.1
[2021-01-19] MEDS ORDERED: diphenhydrAMINE 50 MG/ML 1 ML VIAL IVP STA (20:20)
[2021-01-19] MEDS ORDERED: MORPHINE SULFATE 4 MG/ML SYRINGE IV STA (20:20)
[2021-01-19] MEDS ORDERED: SODIUM CHLORIDE 0.9% 1,000 ML IV STA (20:20)
[2021-01-19] MEDS ORDERED: METOCLOPRAMIDE 5 MG/ML 2 ML VIAL IVP STA (20:20)
[2021-01-19 21:12] VITALS: RESP 18
[2021-01-19] MEDS ORDERED: MORPHINE SULFATE 4 MG/ML SYRINGE IVP STA (21:12)
--- NOTE | 2021-01-19 21:26 | ED ---
General Adult HPI - General Chief complaint: Headache Stated complaint: Headache Time Seen by Provider: 01/19/21 19:59 Source: patient, RN notes reviewed Mode of arrival: ambulatory - History of Present Illness Initial comments: Patient is a 40-year-old female that presents emergency, complaining of migraine headache for the past 4 days patient was she does have a history of chronic migraines. She notes she takes at home medications for it but it is not working this time. She notes that she does have photophobia and phonophobia. She notes that she's been in her room the last 4 days. She notes that this is consistent with her typical migraines. She denied any chest pain shortness of breath nausea vomiting diarrhea constipation fever fatigue chills. - Related Data Home Medications Medication Instructions Recorded Confirmed ALPRAZolam [Xanax] 1 mg PO TID 12/13/13 02/18/19 Gabapentin [Neurontin] 300 mg PO TID 12/13/13 02/18/19 Hydrocodone/Acetaminophen [[place] 1 tab PO Q6H PRN 12/13/13 02/18/19 10-325] SUMAtriptan SUCCINATE [Imitrex] 4 mg SQ DAILY PRN 12/13/13 02/18/19 Cetirizine HCl [Zyrtec] 10 mg PO HS 11/01/15 02/18/19 Cyclobenzaprine [Flexeril] 10 mg PO TID PRN 11/01/15 02/18/19 Fluticasone Nasal [place] [Flonase 1 spray EA NOSTRIL BID PRN 11/01/15 02/18/19 Nasal [place]] HYDROmorphone HCL [Dilaudid] 8 mg PO Q4-6H PRN 11/01/15 02/18/19 SUMAtriptan SUCCINATE [Imitrex] 100 mg PO DAILY PRN 11/01/15 02/18/19 Celecoxib [CeleBREX] 200 mg PO BID 08/14/16 02/18/19 DULoxetine HCL [Cymbalta] 60 mg PO DAILY 08/14/16 02/18/19 lamoTRIgine [LaMICtal] 100 mg PO DAILY 08/14/16 02/18/19 Omeprazole 20 mg PO DAILY 04/29/18 02/18/19 Dextroamphetamine/Amphetamine 20 mg PO TID 10/21/18 02/18/19 [Adderall] Albuterol Inhaler (Mhu) [Ventolin 2 puff INHALATION RT-Q6H PRN 02/18/19 02/18/19 Hfa Inhaler (Mhu)] Melatonin 10 mg PO HS PRN 02/18/19 02/18/19 Previous Rx's Medication Instructions Recorded Ipratropium-Albuterol Nebulize 3 ml INHALATION Q4H PRN #30 neb 10/21/18 [Duoneb 0.5 mg-3 mg/3 ml Soln] Albuterol Nebulized [Ventolin 2.5 mg INHALATION Q4H PRN 10 Days 10/24/18 Nebulized] nebu Allergies Allergy/AdvReac Type Severity Reaction Status Date / Time No Known Allergies Allergy Verified 01/19/21 19:32 Review of Systems ROS Statement: Those systems with pertinent positive or pertinent negative responses have been documented in the HPI. ROS Other: All systems not noted in ROS Statement are negative. Past Medical History Past Medical History: Fibromyalgia, Pulmonary Embolus (PE) Additional Past Medical History / Comment(s): chronic back pain, ankylosing spondylitis, ruling out multiple sclerosis, chronic constipation History of Any Multi-Drug Resistant Organisms: None Reported Past Surgical History: Tubal Ligation Additional Past Surgical History / Comment(s): d&c, Past Psychological History: ADD/ADHD, Anxiety, Bipolar, Depression Smoking Status: Current every day smoker Past Alcohol Use History: Occasional Past Drug Use History: None Reported - Past Family History Son(s) History Unknown: Yes Additional Family Medical History / Comment(s): MRSA on face Mother Family Medical History: Fibromyalgia, Musculoskeletal Disorder General Exam General appearance: alert, in no apparent distress Head exam: Present: atraumatic, normocephalic, normal inspection Eye exam: Present: normal appearance, PERRL, EOMI. Absent: scleral icterus, conjunctival injection, periorbital swelling Neck exam: Present: normal inspection Respiratory exam: Present: normal lung sounds bilaterally. Absent: respiratory distress, wheezes, rales, rhonchi, stridor Cardiovascular Exam: Present: regular rate, normal rhythm, normal heart sounds. Absent: systolic murmur, diastolic murmur, rubs, gallop, clicks GI/Abdominal exam: Present: soft, normal bowel sounds. Absent: distended, tenderness, guarding, rebound, rigid Extremities exam: Present: normal inspection, full ROM, normal capillary refill. Absent: tenderness, pedal edema, joint swelling, calf tenderness Neurological exam: Present: alert, oriented X3 Psychiatric exam: Present: normal affect, normal mood Skin exam: Present: warm, dry, intact, normal color. Absent: rash Course Vital Signs 01/19/21 01/19/21 19:30 20:33 Temperature 98.1 F Pulse Rate 66 Respiratory 19 18 Rate Blood Pressure 122/64 O2 Sat by Pulse 97 Oximetry Medical Decision Making - Medical Decision Making 40-year-old female complaining of migraine 4 days. 1 L normal saline, 4 mg morphine, 50 g Benadryl, 10 mg of Reglan ordered. Upon reevaluation patient states that she is feeling better. Case discussed with Dr. Manley, patient can discharge home with follow-up primary care. Disposition Clinical Impression: Migraine headache Disposition: HOME SELF-CARE Condition: Stable Instructions (If sedation given, give patient instructions): Acute Headache (ED) Additional Instructions: Please return to the Emergency Department if symptoms worsen or any other concerns. Increase oral fluids. Follow-up with primary care 1-2 days. Continue take at home medications as prescribed. Is patient prescribed a controlled substance at d/c from ED?: No Referrals: Josse Austin MD [Primary Care Provider] - 1-2 days Time of Disposition: 22:03
[2021-01-19] MEDS ORDERED: traZODone HCL 50 MG TAB PO ONE (22:03)
[2021-01-19] MEDS ORDERED: HYDROmorphone 1 MG/ML 1 ML SYRINGE IVP STA (22:29)
[2021-01-19 22:48] VITALS: BP 131/68; PULSE 80
== END 2021-01-19 22:37 | disposition home or self-care (01) ==
LOC: EC 19:23
DX: G43.909 Migraine, unspecified, not intractable, without status migrainosus (principal); F90.9 Attention-deficit hyperactivity disorder, unspecified type; F41.9 Anxiety disorder, unspecified; F31.9 Bipolar disorder, unspecified; F17.200 Nicotine dependence, unspecified, uncomplicated; Z86.711 Personal history of pulmonary embolism; Z98.51 Tubal ligation status
CPT/HCPCS: 99283; 96374; 96375 ×3; 96376; 96361 ×2; J2270; J1200; J2765; J1170

== ENCOUNTER 2021-06-11 12:02 | Emergency (ER) | payer OTHER, MEDICARE ==
[2021-06-11 12:46] VITALS: TEMP 99.1
[2021-06-11] MEDS ORDERED: diphenhydrAMINE 50 MG/ML 1 ML VIAL IVP STA (12:59)
[2021-06-11] MEDS ORDERED: ONDANSETRON 4 MG/2 ML VIAL IVP STA (12:59)
[2021-06-11] MEDS ORDERED: HYDROmorphone 1 MG/ML 1 ML SYRINGE IVP STA ×2 (12:59→14:07)
[2021-06-11] MEDS ORDERED: KETOROLAC 15 MG/ML 1 ML VIAL IVP STA (12:59)
[2021-06-11] MEDS ORDERED: SODIUM CHLORIDE 0.9% 1,000 ML IV ONE (12:59)
[2021-06-11] MEDS ORDERED: METOCLOPRAMIDE 5 MG/ML 2 ML VIAL IVP STA (14:07)
[2021-06-11] MEDS ORDERED: DEXAMETHASONE SOD PHOSPHATE 10 MG/ML 1 ML VIAL IV STA (14:07)
[2021-06-11] MEDS ORDERED: ACETAMINOPHEN TAB 500 MG TAB PO STA (14:07)
--- NOTE | 2021-06-11 14:13 | ED ---
General Adult HPI - General Chief complaint: Headache Stated complaint: headache Time Seen by Provider: 06/11/21 12:53 Source: patient, RN notes reviewed, old records reviewed Mode of arrival: ambulatory Limitations: no limitations - History of Present Illness Initial comments: 41-year-old female presents for evaluation of headache. Patient has history of migraine headache and has been attempting her home medications which include multiple pain medications and Imitrex. Her headache has persisted for the past 10 days. She's had some nausea vomiting. No fever. Headache is typical of her normal migraine but more severe. She denies focal numbness or weakness. Denies any cough or cold symptoms. Denies current . - Related Data Home Medications Medication Instructions Recorded Confirmed ALPRAZolam [Xanax] 1 mg PO TID 12/13/13 02/18/19 Gabapentin [Neurontin] 300 mg PO TID 12/13/13 02/18/19 Hydrocodone/Acetaminophen [[place] 1 tab PO Q6H PRN 12/13/13 02/18/19 10-325] SUMAtriptan SUCCINATE [Imitrex] 4 mg SQ DAILY PRN 12/13/13 02/18/19 Cetirizine HCl [Zyrtec] 10 mg PO HS 11/01/15 02/18/19 Cyclobenzaprine [Flexeril] 10 mg PO TID PRN 11/01/15 02/18/19 Fluticasone Nasal [place] [Flonase 1 spray EA NOSTRIL BID PRN 11/01/15 02/18/19 Nasal [place]] HYDROmorphone HCL [Dilaudid] 8 mg PO Q4-6H PRN 11/01/15 02/18/19 SUMAtriptan SUCCINATE [Imitrex] 100 mg PO DAILY PRN 11/01/15 02/18/19 Celecoxib [CeleBREX] 200 mg PO BID 08/14/16 02/18/19 DULoxetine HCL [Cymbalta] 60 mg PO DAILY 08/14/16 02/18/19 lamoTRIgine [LaMICtal] 100 mg PO DAILY 08/14/16 02/18/19 Omeprazole 20 mg PO DAILY 04/29/18 02/18/19 Dextroamphetamine/Amphetamine 20 mg PO TID 10/21/18 02/18/19 [Adderall] Albuterol Inhaler (Mhu) [Ventolin 2 puff INHALATION RT-Q6H PRN 02/18/19 02/18/19 Hfa Inhaler (Mhu)] Melatonin 10 mg PO HS PRN 02/18/19 02/18/19 Previous Rx's Medication Instructions Recorded Ipratropium-Albuterol Nebulize 3 ml INHALATION Q4H PRN #30 neb 10/21/18 [Duoneb 0.5 mg-3 mg/3 ml Soln] Albuterol Nebulized [Ventolin 2.5 mg INHALATION Q4H PRN 10 Days 10/24/18 Nebulized] nebu Allergies Allergy/AdvReac Type Severity Reaction Status Date / Time No Known Allergies Allergy Verified 06/11/21 12:46 Review of Systems ROS Statement: Those systems with pertinent positive or pertinent negative responses have been documented in the HPI. ROS Other: All systems not noted in ROS Statement are negative. Past Medical History Past Medical History: Fibromyalgia, Pulmonary Embolus (PE) Additional Past Medical History / Comment(s): chronic back pain, ankylosing spondylitis, ruling out multiple sclerosis, chronic constipation History of Any Multi-Drug Resistant Organisms: None Reported Past Surgical History: Tubal Ligation Additional Past Surgical History / Comment(s): d&c, Past Psychological History: ADD/ADHD, Anxiety, Bipolar, Depression Smoking Status: Current every day smoker Past Alcohol Use History: Occasional Past Drug Use History: None Reported - Past Family History Son(s) History Unknown: Yes Additional Family Medical History / Comment(s): MRSA on face Mother Family Medical History: Fibromyalgia, Musculoskeletal Disorder General Exam Limitations: no limitations General appearance: alert, in no apparent distress Head exam: Present: atraumatic, normocephalic Eye exam: Present: normal appearance, PERRL ENT exam: Present: mucous membranes dry Neck exam: Present: normal inspection. Absent: tenderness, meningismus Respiratory exam: Present: normal lung sounds bilaterally. Absent: respiratory distress, wheezes Cardiovascular Exam: Present: regular rate, normal rhythm GI/Abdominal exam: Present: soft. Absent: distended, tenderness, guarding Extremities exam: Present: normal inspection, normal capillary refill. Absent: pedal edema Neurological exam: Present: alert, oriented X3, CN II-XII intact. Absent: motor sensory deficit Psychiatric exam: Present: normal affect, normal mood Skin exam: Present: warm, dry, intact. Absent: cyanosis, diaphoretic Course Vital Signs 06/11/21 06/11/21 12:42 14:21 Temperature 99.1 F Pulse Rate 116 H 99 Respiratory 19 20 Rate Blood Pressure 131/84 108/72 O2 Sat by Pulse 97 96 Oximetry - Reevaluation(s) Reevaluation #1: 06/11/21 14:13 Patient continues to have headache after initial treatment. CT is been ordered, results are pending. Additional medication have been ordered. Medical Decision Making - Medical Decision Making 41-year-old female with headache. Patient received initial medication and had minimal improvement. She received a second round of headache cocktail which did significantly improve her headache. Did perform a head CT given the severity of this headache which is negative. On reevaluation she is feeling better and would like to go home to rest. She's given return parameters. She will follow- up with her primary care physician. Disposition Clinical Impression: Headache Disposition: HOME SELF-CARE Condition: Fair Instructions (If sedation given, give patient instructions): Acute Headache (ED) Is patient prescribed a controlled substance at d/c from ED?: No Referrals: Josse Austin MD [Primary Care Provider] - 1-2 days Time of Disposition: 14:54
[2021-06-11 14:23] VITALS: BP 108/72; PULSE 99; RESP 20
--- NOTE | 2021-06-11 14:45 | CT ---
EXAMINATION TYPE: CT brain wo con DATE OF EXAM: 06/11/2021 COMPARISON: CT brain January 07, 2021 HISTORY: headaches CT DLP: 1060.4 mGycm. Automated Exposure Control for Dose Reduction was Utilized. TECHNIQUE: CT scan of the head is performed without contrast. FINDINGS: There is no acute intracranial hemorrhage or midline shift identified. The ventricles an d sulci remains stable with slight sulcal prominence over the superior bilateral frontal lobes redemo nstrated. No hydrocephalus is seen. The globes are intact and the visualized sinuses are clear. IMPRESSION: No acute intracranial hemorrhage or midline shift is seen. No significant change from pr ior CT.
== END 2021-06-11 15:18 | disposition home or self-care (01) ==
LOC: EC 12:02
DX: R51.9 Headache, unspecified (principal); M79.7 Fibromyalgia; F41.9 Anxiety disorder, unspecified; F31.9 Bipolar disorder, unspecified; F90.9 Attention-deficit hyperactivity disorder, unspecified type; F17.200 Nicotine dependence, unspecified, uncomplicated; Z86.711 Personal history of pulmonary embolism; Z98.51 Tubal ligation status
CPT/HCPCS: 99284; 96374; 96375 ×5; 96376; 96361 ×2; 70450; J1200; J1100; J2765; J2405; J1170; J1885

== ENCOUNTER 2021-11-23 12:07 | Emergency (ER) | payer OTHER, MEDICARE ==
[2021-11-23] MEDS ORDERED: SODIUM CHLORIDE 0.9% 1,000 ML IV STA (12:22)
[2021-11-23] MEDS ORDERED: HYDROmorphone 1 MG/ML 1 ML SYRINGE IVP STA (12:22)
[2021-11-23 12:23] VITALS: TEMP 98.7
--- NOTE | 2021-11-23 12:27 | ED ---
General Adult HPI - General Chief complaint: Abdominal Pain Stated complaint: abd pain Time Seen by Provider: 11/23/21 12:11 Source: patient, RN notes reviewed, old records reviewed Mode of arrival: ambulatory Limitations: no limitations - History of Present Illness Initial comments: 41-year-old female presenting for evaluation of abdominal pain. Patient's symptoms have been present for the past 3 days. She's had associated nausea. She her pain is predominantly epigastric and right upper quadrant. She's had previous tubal ligation. No lower abdominal pain. No dysuria. No hematuria. - Related Data Home Medications Medication Instructions Recorded Confirmed ALPRAZolam [Xanax] 1 mg PO TID 12/13/13 02/18/19 Gabapentin [Neurontin] 300 mg PO TID 12/13/13 02/18/19 Hydrocodone/Acetaminophen [[place] 1 tab PO Q6H PRN 12/13/13 02/18/19 10-325] SUMAtriptan succinate [Imitrex] 4 mg SQ DAILY PRN 12/13/13 02/18/19 Cetirizine HCl [Zyrtec] 10 mg PO HS 11/01/15 02/18/19 Cyclobenzaprine [Flexeril] 10 mg PO TID PRN 11/01/15 02/18/19 Fluticasone Nasal [place] [Flonase 1 spray EA NOSTRIL BID PRN 11/01/15 02/18/19 Nasal [place]] HYDROmorphone HCL [Dilaudid] 8 mg PO Q4-6H PRN 11/01/15 02/18/19 SUMAtriptan succinate [Imitrex] 100 mg PO DAILY PRN 11/01/15 02/18/19 Celecoxib [CeleBREX] 200 mg PO BID 08/14/16 02/18/19 DULoxetine HCL [Cymbalta] 60 mg PO DAILY 08/14/16 02/18/19 lamoTRIgine [LaMICtal] 100 mg PO DAILY 08/14/16 02/18/19 Omeprazole 20 mg PO DAILY 04/29/18 02/18/19 Dextroamphetamine/Amphetamine 20 mg PO TID 10/21/18 02/18/19 [Adderall] Albuterol Inhaler [Ventolin [place] 2 puff INHALATION RT-Q6H PRN 02/18/19 02/18/19 Inhaler] Melatonin [Melatonin ER] 10 mg PO HS PRN 02/18/19 02/18/19 Previous Rx's Medication Instructions Recorded Ipratropium-Albuterol Nebulize 3 ml INHALATION Q4H PRN #30 neb 10/21/18 [Duoneb 0.5 mg-3 mg/3 ml Soln] Albuterol Nebulized [Ventolin 2.5 mg INHALATION Q4H PRN 10 Days 10/24/18 Nebulized] nebu Allergies Allergy/AdvReac Type Severity Reaction Status Date / Time No Known Allergies Allergy Verified 11/23/21 12:23 Review of Systems ROS Statement: Those systems with pertinent positive or pertinent negative responses have been documented in the HPI. ROS Other: All systems not noted in ROS Statement are negative. Past Medical History Past Medical History: Fibromyalgia, Pulmonary Embolus (PE) Additional Past Medical History / Comment(s): chronic back pain, ankylosing spondylitis, ruling out multiple sclerosis, chronic constipation History of Any Multi-Drug Resistant Organisms: None Reported Past Surgical History: Tubal Ligation Additional Past Surgical History / Comment(s): d&c, Past Psychological History: ADD/ADHD, Anxiety, Bipolar, Depression Smoking Status: Current every day smoker Past Alcohol Use History: Occasional Past Drug Use History: None Reported - Past Family History Son(s) History Unknown: Yes Additional Family Medical History / Comment(s): MRSA on face Mother Family Medical History: Fibromyalgia, Musculoskeletal Disorder General Exam Limitations: no limitations General appearance: alert, in no apparent distress Head exam: Present: atraumatic, normocephalic Eye exam: Present: normal appearance, PERRL ENT exam: Present: normal exam Neck exam: Present: normal inspection. Absent: tenderness, meningismus Respiratory exam: Present: normal lung sounds bilaterally. Absent: respiratory distress, wheezes Cardiovascular Exam: Present: normal rhythm, tachycardia GI/Abdominal exam: Present: soft, tenderness (Right upper quadrant). Absent: distended Extremities exam: Present: normal inspection, normal capillary refill. Absent: pedal edema, calf tenderness Neurological exam: Present: alert, oriented X3, CN II-XII intact. Absent: motor sensory deficit Skin exam: Present: warm, dry, intact. Absent: cyanosis, diaphoretic Course Vital Signs 11/23/21 11/23/21 12:21 14:25 Temperature 98.7 F Pulse Rate 119 H 102 H Respiratory 22 18 Rate Blood Pressure 129/71 109/63 O2 Sat by Pulse 99 96 Oximetry Medical Decision Making - Medical Decision Making 41-year-old female with epigastric and right upper quadrant abdominal pain. She does have tenderness on exam. Vital signs are stable with mild tachycardia. There was concern for gallbladder pathology, laboratory testing as well as ultrasound was performed. Laboratories tests are unremarkable including normal AST, normal ALT, normal lipase. She has a normal white blood cell count, stable hemoglobin. Normal urinalysis. Ultrasound performed did show a Lockwood sign with gallbladder sludge, no gallbladder distention or wall thickening. Normal common bile duct. I did discuss the findings with Dr. Marce mckeon for general surgery. At this time patient stable for outpatient follow-up likely cholecystectomy in the near future. Return parameters discussed patient is advised to eat a low-fat diet. - Lab Data Result diagrams: 11/23/21 13:05 11/23/21 13:05 Lab Results 11/23/21 11/23/21 11/23/21 Range/Units 13:05 13:05 13:05 WBC 8.6 (3.8-10.6) k/uL RBC 4.82 (3.80-5.40) m/uL Hgb 13.4 (11.4-16.0) gm/dL Hct 41.7 (34.0-46.0) % MCV 86.5 (80.0-100.0) fL MCH 27.8 (25.0-35.0) pg MCHC 32.1 (31.0-37.0) g/dL RDW 15.1 (11.5-15.5) % Plt Count 279 (150-450) k/uL MPV 7.7 Neutrophils % 66 % Lymphocytes % 25 % Monocytes % 5 % Eosinophils % 4 % Basophils % 1 % Neutrophils # 5.6 (1.3-7.7) k/uL Lymphocytes # 2.1 (1.0-4.8) k/uL Monocytes # 0.4 (0-1.0) k/uL Eosinophils # 0.3 (0-0.7) k/uL Basophils # 0.0 (0-0.2) k/uL PT 10.2 (9.0-12.0) sec INR 0.9 (<1.2) APTT 25.7 (22.0-30.0) sec Sodium (137-145) mmol/L Potassium (3.5-5.1) mmol/L Chloride (98-107) mmol/L Carbon Dioxide (22-30) mmol/L Anion Gap mmol/L BUN (7-17) mg/dL Creatinine (0.52-1.04) mg/dL Est GFR (CKD-EPI)AfAm (>60 ml/min/1.73 sqM) Est GFR (CKD-EPI)NonAf (>60 ml/min/1.73 sqM) Glucose (74-99) mg/dL Plasma Lactic Acid [place] (0.7-2.0) mmol/L Calcium (8.4-10.2) mg/dL Total Bilirubin (0.2-1.3) mg/dL AST (14-36) U/L ALT (4-34) U/L Alkaline Phosphatase (38-126) U/L Troponin I (0.000-0.034) ng/mL Total Protein (6.3-8.2) g/dL Albumin (3.5-5.0) g/dL Amylase (30-110) U/L Lipase (23-300) U/L Urine Color Colorless Urine Appearance Cloudy H (Clear) Urine pH 6.5 (5.0-8.0) Ur Specific [place] 1.003 (1.001-1.035) Urine Protein Negative (Negative) Urine Glucose (UA) Negative (Negative) Urine Ketones Negative (Negative) Urine Blood Negative (Negative) Urine Nitrite Negative (Negative) Urine Bilirubin Negative (Negative) Urine Urobilinogen <2.0 (<2.0) mg/dL Ur Leukocyte Esterase Negative (Negative) Urine RBC 1 (0-5) /hpf Urine WBC 3 (0-5) /hpf Ur Squamous Epith Cells 5 H (0-4) /hpf Amorphous Sediment Rare H (None) /hpf Urine Bacteria Rare H (None) /hpf Urine HCG, Qual (Not Detectd) 11/23/21 11/23/21 11/23/21 Range/Units 13:05 13:05 13:05 WBC (3.8-10.6) k/uL RBC (3.80-5.40) m/uL Hgb (11.4-16.0) gm/dL Hct (34.0-46.0) % MCV (80.0-100.0) fL MCH (25.0-35.0) pg MCHC (31.0-37.0) g/dL RDW (11.5-15.5) % Plt Count (150-450) k/uL MPV Neutrophils % % Lymphocytes % % Monocytes % % Eosinophils % % Basophils % % Neutrophils # (1.3-7.7) k/uL Lymphocytes # (1.0-4.8) k/uL Monocytes # (0-1.0) k/uL Eosinophils # (0-0.7) k/uL Basophils # (0-0.2) k/uL PT (9.0-12.0) sec INR (<1.2) APTT (22.0-30.0) sec Sodium 139 (137-145) mmol/L Potassium 4.8 (3.5-5.1) mmol/L Chloride 107 (98-107) mmol/L Carbon Dioxide 22 (22-30) mmol/L Anion Gap 10 mmol/L BUN 11 (7-17) mg/dL Creatinine 0.82 (0.52-1.04) mg/dL Est GFR (CKD-EPI)AfAm >90 (>60 ml/min/1.73 sqM) Est GFR (CKD-EPI)NonAf 90 (>60 ml/min/1.73 sqM) Glucose 94 (74-99) mg/dL Plasma Lactic Acid [place] 1.3 (0.7-2.0) mmol/L Calcium 9.2 (8.4-10.2) mg/dL Total Bilirubin 0.6 (0.2-1.3) mg/dL AST 19 (14-36) U/L ALT 12 (4-34) U/L Alkaline Phosphatase 55 (38-126) U/L Troponin I (0.000-0.034) ng/mL Total Protein 7.4 (6.3-8.2) g/dL Albumin 4.6 (3.5-5.0) g/dL Amylase 66 (30-110) U/L Lipase 46 (23-300) U/L Urine Color Urine Appearance (Clear) Urine pH (5.0-8.0) Ur Specific [place] (1.001-1.035) Urine Protein (Negative) Urine Glucose (UA) (Negative) Urine Ketones (Negative) Urine Blood (Negative) Urine Nitrite (Negative) Urine Bilirubin (Negative) Urine Urobilinogen (<2.0) mg/dL Ur Leukocyte Esterase (Negative) Urine RBC (0-5) /hpf Urine WBC (0-5) /hpf Ur Squamous Epith Cells (0-4) /hpf Amorphous Sediment (None) /hpf Urine Bacteria (None) /hpf Urine HCG, Qual Not Detected (Not Detectd) 11/23/21 Range/Units 13:05 WBC (3.8-10.6) k/uL RBC (3.80-5.40) m/uL Hgb (11.4-16.0) gm/dL Hct (34.0-46.0) % MCV (80.0-100.0) fL MCH (25.0-35.0) pg MCHC (31.0-37.0) g/dL RDW (11.5-15.5) % Plt Count (150-450) k/uL MPV Neutrophils % % Lymphocytes % % Monocytes % % Eosinophils % % Basophils % % Neutrophils # (1.3-7.7) k/uL Lymphocytes # (1.0-4.8) k/uL Monocytes # (0-1.0) k/uL Eosinophils # (0-0.7) k/uL Basophils # (0-0.2) k/uL PT (9.0-12.0) sec INR (<1.2) APTT (22.0-30.0) sec Sodium (137-145) mmol/L Potassium (3.5-5.1) mmol/L Chloride (98-107) mmol/L Carbon Dioxide (22-30) mmol/L Anion Gap mmol/L BUN (7-17) mg/dL Creatinine (0.52-1.04) mg/dL Est GFR (CKD-EPI)AfAm (>60 ml/min/1.73 sqM) Est GFR (CKD-EPI)NonAf (>60 ml/min/1.73 sqM) Glucose (74-99) mg/dL Plasma Lactic Acid [place] (0.7-2.0) mmol/L Calcium (8.4-10.2) mg/dL Total Bilirubin (0.2-1.3) mg/dL AST (14-36) U/L ALT (4-34) U/L Alkaline Phosphatase (38-126) U/L Troponin I <0.012 (0.000-0.034) ng/mL Total Protein (6.3-8.2) g/dL Albumin (3.5-5.0) g/dL Amylase (30-110) U/L Lipase (23-300) U/L Urine Color Urine Appearance (Clear) Urine pH (5.0-8.0) Ur Specific [place] (1.001-1.035) Urine Protein (Negative) Urine Glucose (UA) (Negative) Urine Ketones (Negative) Urine Blood (Negative) Urine Nitrite (Negative) Urine Bilirubin (Negative) Urine Urobilinogen (<2.0) mg/dL Ur Leukocyte Esterase (Negative) Urine RBC (0-5) /hpf Urine WBC (0-5) /hpf Ur Squamous Epith Cells (0-4) /hpf Amorphous Sediment (None) /hpf Urine Bacteria (None) /hpf Urine HCG, Qual (Not Detectd) Disposition Clinical Impression: Abdominal pain, Biliary colic Disposition: HOME SELF-CARE Instructions (If sedation given, give patient instructions): Abdominal Pain (ED), Biliary Colic (ED) Is patient prescribed a controlled substance at d/c from ED?: No Referrals: Josse Austin MD [Primary Care Provider] - 1-2 days Weston Zheng DO [Doctor of Osteopathic Medicine] - 1-2 days Time of Disposition: 14:31
[2021-11-23 13:20] LABS: Basophils % (A) 1 %; Eosinophils # (A) 0.3 k/uL (0-0.7); Eosinophils % (A) 4 %; HCT 41.7 % (34.0-46.0); HGB 13.4 gm/dL (11.4-16.0); Lymphocytes # (A) 2.1 k/uL (1.0-4.8); Lymphocytes % (A) 25 %; MCH 27.8 pg (25.0-35.0); MCHC 32.1 g/dL (31.0-37.0); MCV 86.5 fL (80.0-100.0); Mean Platelet Volume 7.7; Monocytes # (A) 0.4 k/uL (0-1.0); Monocytes % (A) 5 %; Neutrophils # (A) 5.6 k/uL (1.3-7.7); Neutrophils % (A) 66 %; Platelet Count 279 k/uL (150-450); RBC 4.82 m/uL (3.80-5.40); RDW 15.1 % (11.5-15.5); WBC 8.6 k/uL (3.8-10.6)
[2021-11-23 13:37] LABS: ALT 12 U/L (4-34); AST 19 U/L (14-36); African American GFR (CKD) >90 (>60 ml/min/1.73 sqM); Albumin 4.6 g/dL (3.5-5.0); Alkaline Phosphatase 55 U/L (38-126); Amylase 66 U/L (30-110); Anion Gap 10 mmol/L; Blood Urea Nitrogen 11 mg/dL (7-17); Calcium 9.2 mg/dL (8.4-10.2); Carbon Dioxide 22 mmol/L (22-30); Chloride 107 mmol/L (98-107); Glucose 94 mg/dL (74-99); Lipase 46 U/L (23-300); Non-African American GFR(CKD) 90 (>60 ml/min/1.73 sqM); Potassium 4.8 mmol/L (3.5-5.1); Sodium 139 mmol/L (137-145); Total Bilirubin 0.6 mg/dL (0.2-1.3); Total Protein 7.4 g/dL (6.3-8.2)
[2021-11-23 13:39] LABS: Amorphous Sediment,Urine Rare /hpf; Appearance,Urine Cloudy (Clear); Bacteria,Urine Rare /hpf; Bilirubin,Urine Negative (Negative); Blood,Urine Negative (Negative); Color,Urine Colorless; Glucose,Urine (UA) Negative (Negative); Ketones,Urine Negative (Negative); Leukocyte Esterase,Urine Negative (Negative); Nitrite,Urine Negative (Negative); PH, Urine 6.5 (5.0-8.0); Protein,Urine Negative (Negative); RBC,Urine 1 /hpf (0-5); Specific Gravity,Urine 1.003 (1.001-1.035); Squamous Epithelial Cell,Urine 5 /hpf (0-4); Urobilinogen,Urine <2.0 mg/dL (<2.0); WBC,Urine 3 /hpf (0-5)
[2021-11-23 13:40] LABS: INR 0.9 (<1.2); Partial Thromboplastin Time 25.7 sec (22.0-30.0); Prothrombin Time 10.2 sec (9.0-12.0)
--- NOTE | 2021-11-23 13:55 | US ---
EXAMINATION TYPE: US gallbladder DATE OF EXAM: 11/23/2021 COMPARISON: NONE CLINICAL HISTORY: ruq ab pain. RUQ pain x 3 days EXAM MEASUREMENTS: Liver Length: 14.1 cm Gallbladder Wall: 0.21 cm CBD: 0.6 cm Right Kidney: 10.7 x 5.5 x 4.3 cm Pancreas: Tail obscured by overlying bowel gas Liver: wnl Gallbladder: Small layer of sludge seen Evidence for sonographic Lockwood's sign: Yes CBD: wnl Right Kidney: wnl IMPRESSION: Gallbladder sludge otherwise unremarkable study
[2021-11-23] MEDS ORDERED: SODIUM CHLORIDE 0.9% 500 ML 500 ML IV ONE (14:02)
[2021-11-23] MEDS ORDERED: HYDROmorphone 0.5 MG/0.5 ML SYRINGE IVP STA (14:02)
[2021-11-23 14:26] VITALS: BP 109/63; PULSE 102; RESP 18
== END 2021-11-23 14:52 | disposition home or self-care (01) ==
LOC: EC 12:07
DX: K80.50 Calculus of bile duct without cholangitis or cholecystitis without obstruction (principal); F17.200 Nicotine dependence, unspecified, uncomplicated
CPT/HCPCS: 99284; 96374; 96375; 96361; 36415; 80053; 82150; 83605; 83690; 84484; 85025; 85610; 85730; 81001; 81025; 76705; J1170 ×2

== ENCOUNTER 2021-11-24 19:35 | Observation (INO) | payer OTHER, MEDICARE ==
--- NOTE | 2021-11-24 21:03 | XR ---
EXAMINATION TYPE: XR KUB DATE OF EXAM: 11/24/2021 COMPARISON: 08/14/2016 HISTORY: Abdominal pain TECHNIQUE: 2 views upright FINDINGS: No sign of intestinal obstruction or pneumoperitoneum. Fecal pattern is normal. No evidence of a mass. There are no pathologic calcifications over the kidneys. There are clips from tubal ligat ion. Lung bases are clear. IMPRESSION: Nonacute abdomen. No adverse change
[2021-11-24 21:47] LABS: Appearance,Urine Cloudy (Clear); Bacteria,Urine Occasional /hpf; Bilirubin,Urine Negative (Negative); Blood,Urine Negative (Negative); Color,Urine Light Yellow; Glucose,Urine (UA) Negative (Negative); Ketones,Urine Negative (Negative); Leukocyte Esterase,Urine Small (Negative); Mucus,Urine Rare /hpf; Nitrite,Urine Negative (Negative); PH, Urine 5.5 (5.0-8.0); Protein,Urine Negative (Negative); RBC,Urine 3 /hpf (0-5); Specific Gravity,Urine 1.004 (1.001-1.035); Squamous Epithelial Cell,Urine 9 /hpf (0-4); Urobilinogen,Urine <2.0 mg/dL (<2.0); WBC,Urine 4 /hpf (0-5)
--- NOTE | 2021-11-24 21:53 | ED ---
Abdominal Pain HPI - General Chief Complaint: Abdominal Pain Stated Complaint: Abd Pain/Revisit Time Seen by Provider: 11/24/21 21:15 Source: patient Mode of arrival: ambulatory Limitations: no limitations - History of Present Illness Initial Comments: This patient is a 41-year-old woman who presents to have evaluation of abdominal pain. Patient states that she had onset yesterday the pain was in the upper abdomen. She was seen here and had labs and an ultrasound that reportedly showed sludge in the gallbladder. She did go home and states the pain has increased. It is more intense now it is throughout the entire abdomen. Slightly greater in the right upper quadrant still. Patient states she has not had any vomiting but there is some nausea. No change in urination. She states that her last bowel movement was a little over a week ago but states that that is not unusual for her. MD Complaint: abdominal pain Onset/Timin -: days(s) Location: diffuse Radiation: none Severity: severe Quality: aching Consistency: constant Improves With: nothing Worsens With: nothing - Related Data Home Medications Medication Instructions Recorded Confirmed ALPRAZolam [Xanax] 1 mg PO TID 12/13/13 02/18/19 Gabapentin [Neurontin] 300 mg PO TID 12/13/13 02/18/19 Hydrocodone/Acetaminophen [[place] 1 tab PO Q6H PRN 12/13/13 02/18/19 10-325] SUMAtriptan succinate [Imitrex] 4 mg SQ DAILY PRN 12/13/13 02/18/19 Cetirizine HCl [Zyrtec] 10 mg PO HS 11/01/15 02/18/19 Cyclobenzaprine [Flexeril] 10 mg PO TID PRN 11/01/15 02/18/19 Fluticasone Nasal [place]ora [Flonase 1 spray EA NOSTRIL BID PRN 11/01/15 02/18/19 Nasal [place]] HYDROmorphone HCL [Dilaudid] 8 mg PO Q4-6H PRN 11/01/15 02/18/19 SUMAtriptan succinate [Imitrex] 100 mg PO DAILY PRN 11/01/15 02/18/19 Celecoxib [CeleBREX] 200 mg PO BID 08/14/16 02/18/19 DULoxetine HCL [Cymbalta] 60 mg PO DAILY 08/14/16 02/18/19 lamoTRIgine [LaMICtal] 100 mg PO DAILY 08/14/16 02/18/19 Omeprazole 20 mg PO DAILY 04/29/18 02/18/19 Dextroamphetamine/Amphetamine 20 mg PO TID 10/21/18 02/18/19 [Adderall] Albuterol Inhaler [Ventolin Hfa 2 puff INHALATION RT-Q6H PRN 02/18/19 02/18/19 Inhaler] Melatonin [Melatonin ER] 10 mg PO HS PRN 02/18/19 02/18/19 Previous Rx's Medication Instructions Recorded Ipratropium-Albuterol Nebulize 3 ml INHALATION Q4H PRN #30 neb 10/21/18 [Duoneb 0.5 mg-3 mg/3 ml Soln] Albuterol Nebulized [Ventolin 2.5 mg INHALATION Q4H PRN 10 Days 10/24/18 Nebulized] nebu Allergies Allergy/AdvReac Type Severity Reaction Status Date / Time No Known Allergies Allergy Verified 11/24/21 20:45 Review of Systems ROS Statement: Those systems with pertinent positive or pertinent negative responses have been documented in the HPI. ROS Other: All systems not noted in ROS Statement are negative. Constitutional: Denies: fever, chills Respiratory: Denies: cough, dyspnea Cardiovascular: Denies: chest pain, palpitations Gastrointestinal: Reports: abdominal pain, nausea, constipation. Denies: vomiting, diarrhea, hematemesis, melena, hematochezia Genitourinary: Denies: dysuria, hematuria Musculoskeletal: Denies: back pain Skin: Denies: rash Neurological: Denies: headache, weakness, numbness Past Medical History Past Medical History: Fibromyalgia, Pulmonary Embolus (PE) Additional Past Medical History / Comment(s): chronic back pain, ankylosing spondylitis, ruling out multiple sclerosis, chronic constipation History of Any Multi-Drug Resistant Organisms: None Reported Past Surgical History: Tubal Ligation Additional Past Surgical History / Comment(s): d&c, Past Psychological History: ADD/ADHD, Anxiety, Bipolar, Depression Smoking Status: Current every day smoker Past Alcohol Use History: Occasional Past Drug Use History: None Reported - Past Family History Son(s) History Unknown: Yes Additional Family Medical History / Comment(s): MRSA on face Mother Family Medical History: Fibromyalgia, Musculoskeletal Disorder General Exam Limitations: no limitations General appearance: alert, in no apparent distress Head exam: Present: atraumatic, normocephalic Eye exam: Present: normal appearance. Absent: scleral icterus, conjunctival injection Neck exam: Present: normal inspection Respiratory exam: Present: normal lung sounds bilaterally. Absent: respiratory distress, wheezes, rales, rhonchi, stridor Cardiovascular Exam: Present: regular rate, normal rhythm, normal heart sounds. Absent: systolic murmur, diastolic murmur, rubs, gallop GI/Abdominal exam: Present: soft, tenderness (Mild diffuse tenderness, greater right upper quadrant.). Absent: distended, guarding, rebound, rigid, mass Extremities exam: Present: normal inspection, normal capillary refill. Absent: pedal edema, calf tenderness Back exam: Present: normal inspection. Absent: CVA tenderness (R), CVA tenderness (L) Neurological exam: Present: alert Skin exam: Present: warm, dry, intact, normal color. Absent: rash Course Vital Signs 11/24/21 20:43 Temperature 97.6 F Pulse Rate 111 H Respiratory 20 Rate Blood Pressure 131/73 O2 Sat by Pulse 100 Oximetry Medical Decision Making - Lab Data Result diagrams: 11/24/21 21:20 11/24/21 21:20 Lab Results 11/24/21 11/24/21 11/24/21 Range/Units 21:04 21:20 21:20 WBC 10.3 (3.8-10.6) k/uL RBC 4.78 (3.80-5.40) m/uL Hgb 13.4 (11.4-16.0) gm/dL Hct 41.6 (34.0-46.0) % MCV 87.1 (80.0-100.0) fL MCH 28.0 (25.0-35.0) pg MCHC 32.2 (31.0-37.0) g/dL RDW 14.8 (11.5-15.5) % Plt Count 273 (150-450) k/uL MPV 7.5 Neutrophils % 63 % Lymphocytes % 28 % Monocytes % 4 % Eosinophils % 3 % Basophils % 1 % Neutrophils # 6.5 (1.3-7.7) k/uL Lymphocytes # 2.9 (1.0-4.8) k/uL Monocytes # 0.4 (0-1.0) k/uL Eosinophils # 0.3 (0-0.7) k/uL Basophils # 0.1 (0-0.2) k/uL Sodium 138 (137-145) mmol/L Potassium 4.1 (3.5-5.1) mmol/L Chloride 108 H (98-107) mmol/L Carbon Dioxide 22 (22-30) mmol/L Anion Gap 8 mmol/L BUN 8 (7-17) mg/dL Creatinine 0.77 (0.52-1.04) mg/dL Est GFR (CKD-EPI)AfAm >90 (>60 ml/min/1.73 sqM) Est GFR (CKD-EPI)NonAf >90 (>60 ml/min/1.73 sqM) Glucose 84 (74-99) mg/dL Calcium 9.4 (8.4-10.2) mg/dL Total Bilirubin 0.5 (0.2-1.3) mg/dL AST 18 (14-36) U/L ALT 12 (4-34) U/L Alkaline Phosphatase 56 (38-126) U/L Total Protein 7.4 (6.3-8.2) g/dL Albumin 4.7 (3.5-5.0) g/dL Amylase 61 (30-110) U/L Lipase 45 (23-300) U/L Urine Color Light Yellow Urine Appearance Cloudy H (Clear) Urine pH 5.5 (5.0-8.0) Ur Specific [place] 1.004 (1.001-1.035) Urine Protein Negative (Negative) Urine Glucose (UA) Negative (Negative) Urine Ketones Negative (Negative) Urine Blood Negative (Negative) Urine Nitrite Negative (Negative) Urine Bilirubin Negative (Negative) Urine Urobilinogen <2.0 (<2.0) mg/dL Ur Leukocyte Esterase Small H (Negative) Urine RBC 3 (0-5) /hpf Urine WBC 4 (0-5) /hpf Ur Squamous Epith Cells 9 H (0-4) /hpf Urine Bacteria Occasional H (None) /hpf Urine Mucus Rare H (None) /hpf Disposition Clinical Impression: Abdominal pain Disposition: ADMITTED IP TO THIS HOSP Condition: Good Instructions (If sedation given, give patient instructions): Abdominal Pain (ED) Is patient prescribed a controlled substance at d/c from ED?: No Referrals: Josse Austin MD [Primary Care Provider] - 1-2 days Time of Disposition: 00:15
[2021-11-24 22:05] LABS: Basophils # (A) 0.1 k/uL (0-0.2); Basophils % (A) 1 %; Eosinophils # (A) 0.3 k/uL (0-0.7); Eosinophils % (A) 3 %; HCT 41.6 % (34.0-46.0); HGB 13.4 gm/dL (11.4-16.0); Lymphocytes # (A) 2.9 k/uL (1.0-4.8); Lymphocytes % (A) 28 %; MCHC 32.2 g/dL (31.0-37.0); MCV 87.1 fL (80.0-100.0); Mean Platelet Volume 7.5; Monocytes # (A) 0.4 k/uL (0-1.0); Monocytes % (A) 4 %; Neutrophils # (A) 6.5 k/uL (1.3-7.7); Neutrophils % (A) 63 %; Platelet Count 273 k/uL (150-450); RBC 4.78 m/uL (3.80-5.40); RDW 14.8 % (11.5-15.5); WBC 10.3 k/uL (3.8-10.6)
[2021-11-24 22:21] LABS: ALT 12 U/L (4-34); AST 18 U/L (14-36); African American GFR (CKD) >90 (>60 ml/min/1.73 sqM); Albumin 4.7 g/dL (3.5-5.0); Alkaline Phosphatase 56 U/L (38-126); Amylase 61 U/L (30-110); Anion Gap 8 mmol/L; Blood Urea Nitrogen 8 mg/dL (7-17); Calcium 9.4 mg/dL (8.4-10.2); Carbon Dioxide 22 mmol/L (22-30); Chloride 108 mmol/L (98-107); Glucose 84 mg/dL (74-99); Lipase 45 U/L (23-300); Non-African American GFR(CKD) >90 (>60 ml/min/1.73 sqM); Potassium 4.1 mmol/L (3.5-5.1); Sodium 138 mmol/L (137-145); Total Bilirubin 0.5 mg/dL (0.2-1.3); Total Protein 7.4 g/dL (6.3-8.2)
[2021-11-24] MEDS ORDERED: SODIUM CHLORIDE 0.9% 1,000 ML IV ONE (23:00)
[2021-11-24] MEDS ORDERED: HYDROmorphone 1 MG/ML 1 ML SYRINGE IVP STA (23:00)
--- NOTE | 2021-11-24 23:25 | CT ---
EXAMINATION TYPE: CT abdomen pelvis w con DATE OF EXAM: 11/24/2021 COMPARISON: 08/07/2014 HISTORY: abd pain CT DLP: 1023.3 mGycm Automated exposure control for dose reduction was used. CONTRAST: Performed with IV Contrast, patient injected with 100 mL of Isovue 300. Images obtained from the diaphragm to the floor the pelvis with IV contrast. There is some mild atelectasis posterior lung bases. Heart is normal. No pericardial effusion. No ple ural effusion. Liver and gallbladder appear intact. The bile ducts are not dilated. Spleen is intact. There is no pa ncreatic mass. The stomach is intact. There is no adrenal mass. Kidneys have normal size and contour. No hydronephrosis. Ureters are not di lated. There is no retroperitoneal adenopathy. Appendix is posterior and appears normal. The bladder distends smoothly. No inguinal hernia. Uterus is anteverted. No free fluid in the pelvis. There is no mesenteric edema. No ascites or free air. No bowel obstruction. There is vacuum disc at L 5-S1. Lumbar spine is intact. No compression fracture. The bony pelvis is intact. Hip joints are inta ct. Small bowel pattern is normal. IMPRESSION: Negative CT scan of the abdomen pelvis. No adverse change compared to old exam. Mild atelectasis at t he posterior lung bases.
[2021-11-25] MEDS ORDERED: NALOXONE 0.4 MG/ML 1 ML VIAL IV PRN (00:27)
[2021-11-25] MEDS ORDERED: ONDANSETRON 4 MG/2 ML VIAL IVP PRN (00:27)
[2021-11-25] MEDS ORDERED: PIPERACILLIN-TAZOBACTAM 3.375 GM in SODIUM CHLORIDE 0.9% 100 ML IVPB STA (00:28)
[2021-11-25] MEDS: HYDROmorphone 1 MG/ML 1 ML SYRINGE IVP PRN ×7 (02:04→21:29)
[2021-11-25] MEDS: SODIUM CHLORIDE 0.9% 1,000 ML IV SCH ×4 (02:51→23:35)
[2021-11-25] MEDS: NICOTINE 14MG/24HR PATCH TRANSDERM SCH ×2 (02:57→08:23)
[2021-11-25] MEDS: FAMOTIDINE 20 MG TAB PO SCH ×2 (08:18→20:28)
[2021-11-25] MEDS: PIPERACILLIN-TAZOBACTAM 3.375 GM in SODIUM CHLORIDE 0.9% 100 ML IVPB SCH ×2 (10:00→15:40)
[2021-11-25] MEDS: ACETAMINOPHEN TAB 325 MG TAB PO PRN (11:55)
--- NOTE | 2021-11-25 12:46 | P.GSHP ---
History of Present Illness H&P Date: 11/25/21 CHIEF COMPLAINT: Abdominal pain HISTORY OF PRESENT ILLNESS: This is a 41-year-old female who presented with right upper quadrant abdominal pain. She reports that her symptoms started 7 days ago, last Thursday. Patient reports that her pain became worse by Thursday she went to the ER on Thursday and had an ultrasound done with evidence of gallbladder sludge. She was discharged from the ER. However, her right upper quadrant pain became worse and she came back to the hospital last night. She was having nausea and vomiting especially after eating. Symptoms were became worse after eating a hot dog. And she had similar symptoms after eating a loaded baked potato. Her abdominal ultrasound on had noted gallbladder sludge and had a positive Lockwood sign. Patient had mild tachycardia on ad mission. White count was 10.3. Computed tomography scan was essentially unremarkable. Surgical history includes tubal ligation. She denies any further abdominal surgeries. Denies any cardiac history. Denies any blood in her history. PAST MEDICAL HISTORY: Fibromyalgia, Pulmonary Embolus, chronic back pain, ankylosing spondylitis, chronic constipation, anxiety, bipolar, depression, ADHD PAST SURGICAL HISTORY: See list. MEDICATIONS: See list. ALLERGIES: See list. SOCIAL HISTORY: No illicit drug use. Nicotine dependence REVIEW OF SYSTEMS: CONSTITUTIONAL: Denies fever or chills. HEENT: Denies blurred vision, vision changes, or eye pain. Denies hemoptysis CARDIOVASCULAR: Denies chest pain or pressure. RESPIRATORY: No shortness of breath. GASTROINTESTINAL: See HPI for pertinent findings HEMATOLOGIC: Denies bleeding disorders. GENITOURINARY: Denies any blood in urine or increased urinary frequency. SKIN: Denies pruitis. Denies rash. PHYSICAL EXAM: VITAL SIGNS: Reviewed GENERAL: Well-developed in no acute distress. HEENT: No sclera icterus. Extraocular movements grossly intact. Moist buccal mucosa. Head is atraumatic, normocephalic. No nasal drainage. ABDOMEN: Soft. Obese. Nondistended. Tenderness to palpation right upper quadrant NEUROLOGIC: Alert and oriented. Cranial nerves II through XII grossly intact. LABORATORY DATA: WBC is 10.3 Hgb 13.4 platelets 273 Sodium 138 potassium 4.1 creatinine 0.77 LFTs normal Lipase 45 Urinalysis no evidence of infection IMAGING: Ultrasound shows gallbladder sludge. Positive Lockwood sign Computed tomography scan abdomen and pelvis with IV contrast. No adverse change compared to old exam. Mild atelectasis at the posterior lung bases ASSESSMENT: 1. Right upper quadrant abdominal pain with evidence of gallbladder sludge and positive Lockwood sign on ultrasound 2. Possible chronic cholecystitis PLAN: -Patient scheduled for laparoscopic cholecystectomy tomorrow, 11/26/2021 -Clear liquid diet today -Nothing by mouth after midnight -Continue antibiotics -Continue IV fluids -Continue antiemetics as needed -Continue pain medication as needed -Consult medicine service for medical management -GI prophylaxis Pepcid and DVT prophylaxis subcu heparin Physician Services Advisor note has been reviewed by physician. Signing provider agrees with the documented findings, assessment, and plan of care. Past Medical History Past Medical History: Fibromyalgia, Pulmonary Embolus (PE) Additional Past Medical History / Comment(s): chronic back pain, ankylosing spondylitis, ruling out multiple sclerosis, chronic constipation History of Any Multi-Drug Resistant Organisms: None Reported Past Surgical History: Tubal Ligation Additional Past Surgical History / Comment(s): d&c, Past Anesthesia/Blood Transfusion Reactions: No Reported Reaction Past Psychological History: ADD/ADHD, Anxiety, Bipolar, Depression Smoking Status: Current every day smoker Past Alcohol Use History: Occasional Additional Past Alcohol Use History / Comment(s): Patient states that she smokes about a half pack a day Past Drug Use History: None Reported - Past Family History Son(s) History Unknown: Yes Additional Family Medical History / Comment(s): MRSA on face Mother Family Medical History: Fibromyalgia, Musculoskeletal Disorder Medications and Allergies Home Medications Medication Instructions Recorded Confirmed Type ALPRAZolam [Xanax] 1 mg PO TID 12/13/13 11/25/21 History Hydrocodone/Acetaminophen [[place] 1 tab PO Q8H PRN 12/13/13 11/25/21 History 10-325] HYDROmorphone HCL [Dilaudid] 8 mg PO Q8H 11/01/15 11/25/21 History lamoTRIgine [LaMICtal] 100 mg PO DAILY 08/14/16 11/25/21 History Albuterol Inhaler [Ventolin Hfa 2 puff INHALATION RT-Q4H PRN 02/18/19 11/25/21 History Inhaler] Melatonin [Melatonin ER] 10 mg PO HS 02/18/19 11/25/21 History Cyclobenzaprine [Flexeril] 10 mg PO TID 11/25/21 11/25/21 History Famotidine [Pepcid] 40 mg PO DAILY 11/25/21 11/25/21 History Ibuprofen [Motrin] 800 mg PO Q8H PRN 11/25/21 11/25/21 History Allergies Allergy/AdvReac Type Severity Reaction Status Date / Time No Known Allergies Allergy Verified 11/25/21 07:39 Surgical - Exam Vital Signs Temp Pulse Resp BP Pulse Ox 97.6 F 111 H 20 131/73 100 11/24/21 20:43 11/24/21 20:43 11/24/21 20:43 11/24/21 20:43 11/24/21 20:43 Results - Labs 11/24/21 21:20 11/24/21 21:20 Abnormal Lab Results - Last 24 Hours (Table) 11/24/21 11/24/21 Range/Units 21:04 21:20 Chloride 108 H (98-107) mmol/L Urine Appearance Cloudy H (Clear) Ur Leukocyte Esterase Small H (Negative) Ur Squamous Epith Cells 9 H (0-4) /hpf Urine Bacteria Occasional H (None) /hpf Urine Mucus Rare H (None) /hpf Diabetes panel 11/24/21 Range/Units 21:20 Sodium 138 (137-145) mmol/L Potassium 4.1 (3.5-5.1) mmol/L Chloride 108 H (98-107) mmol/L Carbon Dioxide 22 (22-30) mmol/L BUN 8 (7-17) mg/dL Creatinine 0.77 (0.52-1.04) mg/dL Glucose 84 (74-99) mg/dL Calcium 9.4 (8.4-10.2) mg/dL AST 18 (14-36) U/L ALT 12 (4-34) U/L Alkaline Phosphatase 56 (38-126) U/L Total Protein 7.4 (6.3-8.2) g/dL Albumin 4.7 (3.5-5.0) g/dL Calcium panel 11/24/21 Range/Units 21:20 Calcium 9.4 (8.4-10.2) mg/dL Albumin 4.7 (3.5-5.0) g/dL Pituitary panel 11/24/21 Range/Units 21:20 Sodium 138 (137-145) mmol/L Potassium 4.1 (3.5-5.1) mmol/L Chloride 108 H (98-107) mmol/L Carbon Dioxide 22 (22-30) mmol/L BUN 8 (7-17) mg/dL Creatinine 0.77 (0.52-1.04) mg/dL Glucose 84 (74-99) mg/dL Calcium 9.4 (8.4-10.2) mg/dL Adrenal panel 11/24/21 Range/Units 21:20 Sodium 138 (137-145) mmol/L Potassium 4.1 (3.5-5.1) mmol/L Chloride 108 H (98-107) mmol/L Carbon Dioxide 22 (22-30) mmol/L BUN 8 (7-17) mg/dL Creatinine 0.77 (0.52-1.04) mg/dL Glucose 84 (74-99) mg/dL Calcium 9.4 (8.4-10.2) mg/dL Total Bilirubin 0.5 (0.2-1.3) mg/dL AST 18 (14-36) U/L ALT 12 (4-34) U/L Alkaline Phosphatase 56 (38-126) U/L Total Protein 7.4 (6.3-8.2) g/dL Albumin 4.7 (3.5-5.0) g/dL
[2021-11-25] MEDS ORDERED: ALBUTEROL NEBULIZED 2.5 MG/3 ML INHALATION PRN (15:15)
--- NOTE | 2021-11-25 15:36 | P.CONS ---
History of Present Illness - Reason for Consult Consult date: 11/25/21 - Chief Complaint pain - History of Present Illness 41-year-old female who presented with right upper quadrant and epigastric abdominal pain. It started 7 days ago, last Thursday. Due to the pain she went to the ER on Thursday and had an ultrasound done that showed gallbladder sludge. She was discharged from the ER. However, her right upper quadrant pain became worse and she came back to the hospital. She was having nausea and vomiting especially after eating. She was throwing up bile eventually. No diarrhea, no fevers or chills.. Upon admission her vital signs and labs were essentially stable. She was seen by surgery and cholecystectomy was planned for tomorrow. We are seeing this patient for medical management. She has history of fibromyalgia, remote pulmonary embolus, chronic back pain, ankylosing spondylitis, chronic constipation, anxiety, bipolar, depression, ADHD. Review of Systems Complete review of system performed, pertinent positives per HPI, otherwise negative Past Medical History Past Medical History: Fibromyalgia, Pulmonary Embolus (PE) Additional Past Medical History / Comment(s): chronic back pain, ankylosing spondylitis, ruling out multiple sclerosis, chronic constipation History of Any Multi-Drug Resistant Organisms: None Reported Past Surgical History: Tubal Ligation Additional Past Surgical History / Comment(s): d&c, Past Anesthesia/Blood Transfusion Reactions: No Reported Reaction Past Psychological History: ADD/ADHD, Anxiety, Bipolar, Depression Smoking Status: Current every day smoker Past Alcohol Use History: Occasional Additional Past Alcohol Use History / Comment(s): Patient states that she smokes about a half pack a day Past Drug Use History: None Reported - Past Family History Son(s) History Unknown: Yes Additional Family Medical History / Comment(s): MRSA on face Mother Family Medical History: Fibromyalgia, Musculoskeletal Disorder Medications and Allergies Home Medications Medication Instructions Recorded Confirmed Type ALPRAZolam [Xanax] 1 mg PO TID 12/13/13 11/25/21 History Hydrocodone/Acetaminophen [[place] 1 tab PO Q8H PRN 12/13/13 11/25/21 History 10-325] HYDROmorphone HCL [Dilaudid] 8 mg PO Q8H 11/01/15 11/25/21 History lamoTRIgine [LaMICtal] 100 mg PO DAILY 08/14/16 11/25/21 History Albuterol Inhaler [Ventolin Hfa 2 puff INHALATION RT-Q4H PRN 02/18/19 11/25/21 History Inhaler] Melatonin [Melatonin ER] 10 mg PO HS 02/18/19 11/25/21 History Cyclobenzaprine [Flexeril] 10 mg PO TID 11/25/21 11/25/21 History Famotidine [Pepcid] 40 mg PO DAILY 11/25/21 11/25/21 History Ibuprofen [Motrin] 800 mg PO Q8H PRN 11/25/21 11/25/21 History Allergies Allergy/AdvReac Type Severity Reaction Status Date / Time No Known Allergies Allergy Verified 11/25/21 07:39 Physical Exam Vitals: Vital Signs Temp Pulse Pulse Resp BP BP Pulse Ox 11/25/21 07:00 98.7 F 88 16 101/60 93 L 11/25/21 03:00 100 18 11/25/21 02:32 97.8 F 100 18 116/79 95 11/25/21 02:00 97 16 123/72 98 11/24/21 20:43 97.6 F 111 H 20 131/73 100 Intake and Output 11/25/21 11/25/21 11/25/21 06:59 14:59 22:59 Other: Voiding Method Toilet # Voids 2 Weight 85.275 kg Constitutional: No acute distress, conversant, pleasant Eyes:Anicteric sclerae, moist conjunctiva, no lid-lag, PERRLA, ENMT: Oropharynx clear, no erythema, exudates Neck: Supple, FROM, no masses, or JVD, No carotid bruits, No thyromegaly Lungs: Clear to auscultation, Clear to percussion, Normal respiratory effort, no accessory muscle use Cardiovascular: Heart regular in rate and rhythm, No murmurs, gallops, or rubs, No peripheral edema Abdominal: Soft, right upper quadrant and epigastric tenderness, no guarding, rebound or rigidity, Normoactive bowel sounds, No hepatomegaly, No splenomegaly, No palpable mass Skin: Normal temperature, tone, texture, turgor, no induration, No subcutaneous nodules, No rash, lesions, No ulcers Extremities: No digital cyanosis, No clubbing, Pedal pulses intact and symmetrical, Radial pulses intact and symmetrical, No calf tenderness Psychiatric: Alert and oriented to person, place and time, appropriate affect, intact judgement Neuro: Muscles Strength 5/5 in all 4 extremities, Sensation to light touch grossly present throughout, Cranial nerves II-XII grossly intact, no focal sensory deficits Results CBC & Chem 7: 11/24/21 21:20 11/24/21 21:20 Labs: Abnormal Lab Results - Last 24 Hours (Table) 11/24/21 11/24/21 Range/Units 21:04 21:20 Chloride 108 H (98-107) mmol/L Urine Appearance Cloudy H (Clear) Ur Leukocyte Esterase Small H (Negative) Ur Squamous Epith Cells 9 H (0-4) /hpf Urine Bacteria Occasional H (None) /hpf Urine Mucus Rare H (None) /hpf Assessment and Plan Plan: Right upper quadrant abdominal pain and epigastric pain most likely secondary to gallbladder sludge Seen by surgery Lap baldev planned for tomorrow. Pain control with opiates. Chronic Fibromyalgia, Hx of Pulmonary Embolus, Chronic back pain, Ankylosing spondylitis, Anxiety, bipolar, depression, ADHD All stable Resume meds once able to take by mouth DVT prophylaxis AC to start post op
[2021-11-25] MEDS: lamoTRIgine 100 MG TAB PO SCH (15:39)
[2021-11-25] MEDS: ALPRAZolam 1 MG TAB PO SCH ×2 (15:40→20:28)
[2021-11-25] MEDS: HEPARIN SODIUM,PORCINE/PF 5,000 UNIT/0.5 ML SYRINGE SQ SCH (20:27)
[2021-11-25] MEDS ORDERED: MELATONIN 3 MG TABLET PO SCH (21:00)
[2021-11-25] MEDS: MELATONIN 5 MG TABLET PO SCH (21:30)
[2021-11-26] MEDS: PIPERACILLIN-TAZOBACTAM 3.375 GM in SODIUM CHLORIDE 0.9% 100 ML IVPB SCH ×3 (00:02→16:22)
[2021-11-26] MEDS: HYDROmorphone 1 MG/ML 1 ML SYRINGE IVP PRN ×5 (04:59→21:03)
[2021-11-26 06:54] LABS: Basophils % (A) 1 %; Eosinophils # (A) 0.3 k/uL (0-0.7); Eosinophils % (A) 4 %; HCT 35.6 % (34.0-46.0); HGB 11.4 gm/dL (11.4-16.0); Hypochromasia Slight; Lymphocytes # (A) 2.3 k/uL (1.0-4.8); Lymphocytes % (A) 29 %; MCH 28.1 pg (25.0-35.0); MCV 87.7 fL (80.0-100.0); Mean Platelet Volume 7.6; Monocytes # (A) 0.3 k/uL (0-1.0); Monocytes % (A) 4 %; Neutrophils # (A) 4.6 k/uL (1.3-7.7); Neutrophils % (A) 60 %; Platelet Count 255 k/uL (150-450); RBC 4.06 m/uL (3.80-5.40); RDW 14.7 % (11.5-15.5); WBC 7.7 k/uL (3.8-10.6)
[2021-11-26 07:25] LABS: African American GFR (CKD) 90 (>60 ml/min/1.73 sqM); Anion Gap 7 mmol/L; Blood Urea Nitrogen 5 mg/dL (7-17); Calcium 8.3 mg/dL (8.4-10.2); Carbon Dioxide 24 mmol/L (22-30); Chloride 109 mmol/L (98-107); Glucose 84 mg/dL (74-99); Non-African American GFR(CKD) 78 (>60 ml/min/1.73 sqM); Potassium 4.1 mmol/L (3.5-5.1); Sodium 140 mmol/L (137-145)
[2021-11-26] MEDS: ALPRAZolam 1 MG TAB PO SCH ×3 (07:43→21:02)
[2021-11-26] MEDS: SODIUM CHLORIDE 0.9% 1,000 ML IV SCH ×2 (07:43→16:23)
[2021-11-26] MEDS: FAMOTIDINE 20 MG TAB PO SCH ×2 (07:43→19:51)
[2021-11-26] MEDS: NICOTINE 14MG/24HR PATCH TRANSDERM SCH (07:44)
[2021-11-26] MEDS: HEPARIN SODIUM,PORCINE/PF 5,000 UNIT/0.5 ML SYRINGE SQ SCH ×2 (07:44→21:08)
[2021-11-26] MEDS: lamoTRIgine 100 MG TAB PO SCH (07:44)
[2021-11-26] MEDS ORDERED: LACTATED RINGERS 1,000 ML IV ONE (09:37)
[2021-11-26] MEDS ORDERED: DEXAMETHASONE SOD PHOSPHATE 4 MG/ML 1 ML VIAL IVP ONE (09:42)
[2021-11-26] MEDS ORDERED: ONDANSETRON 4 MG/2 ML VIAL IVP ONE ×2 (09:42→19:04)
[2021-11-26] MEDS ORDERED: ALBUTEROL NEBULIZED 2.5 MG/3 ML INHALATION ONE (10:09)
[2021-11-26] MEDS ORDERED: HEPARIN SODIUM,PORCINE 5,000 UNIT/ML 1 ML VIAL SQ ONE (10:23)
[2021-11-26] MEDS ORDERED: NEOSTIGMINE 1 MG/ML 10 ML VIAL ONE (10:40)
[2021-11-26] MEDS ORDERED: fentaNYL (PF) 50 MCG/ML 2 ML AMP ONE (10:40)
[2021-11-26] MEDS ORDERED: PROPOFOL 10 MG/ML 20 ML VIAL IV ONE (10:40)
[2021-11-26] MEDS ORDERED: ROCURONIUM 10 MG/ML (5 ML VIAL) IV ONE (10:40)
[2021-11-26] MEDS ORDERED: HYDROmorphone (PF) 1 MG/ML ONE (10:40)
[2021-11-26] MEDS ORDERED: LIDOCAINE 2% INJ 20 MG/ML (2 ML VIAL) ONE (10:40)
[2021-11-26] MEDS ORDERED: GLYCOPYRROLATE 0.2 MG/ML 2 ML VIAL ONE (10:40)
[2021-11-26] MEDS ORDERED: MIDAZOLAM 2 MG/2 ML VIAL ONE (10:40)
[2021-11-26] MEDS ORDERED: SUCCINYLCHOLINE CHLORIDE 100 MG/5 ML SYR IV ONE (10:40)
[2021-11-26] MEDS ORDERED: KETOROLAC 15 MG/ML 1 ML VIAL ONE (10:40)
[2021-11-26] MEDS ORDERED: BUPIVACAIN-EPI 0.25%-1:200,000 30 ML VIAL SQ ONE (10:58)
[2021-11-26] MEDS ORDERED: HYDROmorphone 1 MG/ML 1 ML SYRINGE IVP PRN (11:43)
--- NOTE | 2021-11-26 11:43 | P.OP ---
Date of Procedure: 11/26/21 Preoperative Diagnosis: Cholecystitis Postoperative Diagnosis: Cholecystitis Procedure(s) Performed: Laparoscopic cholecystectomy Anesthesia: TIFFANIE Surgeon: Trey Mata Estimated Blood Loss (ml): 5 Pathology: other (Gallbladder) Condition: stable Disposition: PACU Description of Procedure: The patient was placed on the operating table. The patient received a general endotracheal tube anesthesia. The patients abdomen was prepped and draped in the usual sterile fashion. Through an infraumbilical stab incision, the fascia of the anterior abdominal wall was grasped with a pair of Kochers and then the Veress needle was placed in the peritoneal cavity. Position of the Veress needle was confirmed with positive drop test. The abdomen was then insufflated. After adequate insufflation, the 10 mm trocar was placed in the peritoneal cavity. Following this the laparoscope was placed in the peritoneal cavity. The patient was placed in the head-up, right side up position and then a 5 mm trocar was placed in the right lateral and right subcostal position under direct visualization. A 8 mm trocar was placed in the epigastric position. The gallbladder was grasped in the fundus and infundibulum. Traction on the gallbladder was placed in the lateral and the cephalad positions. The triangle of Calot was visualized.. The cystic duct was bluntly dissected until the union of the cystic duct and common bile duct was seen. A critical view of safety was achieved. The cystic duct was then divided and sealed with the Harmonic scissors. A PDS Endoloop was then placed throughout the cystic duct stump. The cystic artery divided and sealed with the Harmonic scissors. The gallbladder was then removed from the liver bed using Harmonic scissors. The gallbladder was then extracted through the epigastric port site. Operative field was checked for any bleeding spots and Harmonic scissors was used to coagulate the liver bed. The abdomen was irrigated. The trocars were removed. The skin was closed using interrupted 3-0 Vicryl suture. Dermabond dressing were applied. The patient tolerated the procedure well.
[2021-11-26] MEDS ORDERED: HYDROmorphone 0.5 MG/0.5 ML SYRINGE IVP ONE ×2 (11:48→11:57)
[2021-11-26] MEDS: HYDROcodone/APAP 7.5-325MG 1 EACH TAB PO PRN ×2 (12:49→19:51)
--- NOTE | 2021-11-26 15:47 | P.PN ---
Subjective Progress Note Date: 11/26/21 - History of Present Illness: 41-year-old female who presented with right upper quadrant and epigastric abdominal pain. It started 7 days ago, last Thursday. Due to the pain she went to the ER on Thursday and had an ultrasound done that showed gallbladder sludge. She was discharged from the ER. However, her right upper quadrant pain became worse and she came back to the hospital. She was having nausea and vomiting especially after eating. She was throwing up bile eventually. No diarrhea, no fevers or chills.. Upon admission her vital signs and labs were essentially stable. She was seen by surgery and cholecystectomy was planned for tomorrow. We are seeing this patient for medical management. She has history of fibromyalgia, remote pulmonary embolus, chronic back pain, ankylosing spondylitis, chronic constipation, anxiety, bipolar, depression, ADHD. Interval history: Patient was seen and examined at the bedside. Status post laparoscopic cholecystectomy. She still complaining of pain around her surgical incision. She denies any chest pain or shortness of breath. Physical examination: General: non toxic, no distress, appears at stated age Derm: warm, dry Head: atraumatic, normocephalic, symmetric Eyes: EOMI, no lid lag, anicteric sclera Mouth: no lip lesion, mucus membranes moist Cardiovascular: S1S2 reg, no murmur, positive posterior tibial pulse bilateral, Lungs: CTA bilateral, no rhonchi, no rales , no accessory muscle use Abdominal: soft, slightly tender on palpation around the surgical incision. No rebound tenderness or rigidity. no guarding, no appreciable organomegaly Ext: no gross muscle atrophy, no edema, no contractures Neuro: CN II-XI grossly intact, no focal neuro deficits Psych: Alert, oriented, appropriate affect Assessment and plan: #Acute cholecystitis Status post laparoscopic cholecystectomy November 26 Pain control Advance diet per general surgery Chronic medical condition: Fibromyalgia, Hx of Pulmonary Embolus, Chronic back pain, Ankylosing spondylitis, Anxiety, bipolar, depression, ADHD All stable Resume meds once able to take by mouth Objective - Vital Signs Vital signs: Vital Signs Temp 98.8 F 11/26/21 14:40 Pulse 100 11/26/21 14:40 Resp 18 11/26/21 14:40 BP 92/62 11/26/21 14:40 Pulse Ox 94 L 11/26/21 14:40 FiO2 Intake & Output 11/25/21 11/26/21 11/26/21 18:59 06:59 18:59 Intake Total 0 1090 Output Total 5 Balance 0 1085 Weight 85.275 kg Intake: IV 850 Oral 0 240 Output: Estimated Blood Loss 5 Other: Voiding Method Toilet Toilet # Voids 1 2 2 - Labs CBC & Chem 7: 11/26/21 06:22 11/26/21 06:22 Labs: Abnormal Lab Results - Last 24 Hours (Table) 11/26/21 Range/Units 06:22 Chloride 109 H (98-107) mmol/L BUN 5 L (7-17) mg/dL Calcium 8.3 L (8.4-10.2) mg/dL Microbiology - Last 24 Hours (Table) 11/25/21 01:36 Blood Culture - Preliminary Blood No Growth after 24 hours
[2021-11-26] MEDS ORDERED: MIDAZOLAM 2 MG/2 ML VIAL IV PRN (19:04)
[2021-11-26] MEDS ORDERED: DEXAMETHASONE SOD PHOSPHATE 4 MG/ML 1 ML VIAL IV ONE (19:04)
[2021-11-26] MEDS ORDERED: HYDROmorphone 0.5 MG/0.5 ML SYRINGE IVP PRN (19:04)
[2021-11-26] MEDS ORDERED: LIDOCAINE 1% (10MG/ML) FOR IV START INTRADERMA PRN (19:04)
[2021-11-26] MEDS: LACTATED RINGERS 1,000 ML IV SCH (19:35)
[2021-11-26] MEDS: MELATONIN 5 MG TABLET PO SCH (21:02)
[2021-11-27] MEDS: PIPERACILLIN-TAZOBACTAM 3.375 GM in SODIUM CHLORIDE 0.9% 100 ML IVPB SCH ×4 (00:48→23:26)
[2021-11-27] MEDS: SODIUM CHLORIDE 0.9% 1,000 ML IV SCH ×4 (00:49→20:21)
[2021-11-27] MEDS: HYDROmorphone 1 MG/ML 1 ML SYRINGE IVP PRN ×2 (06:05→08:52)
[2021-11-27] MEDS: FAMOTIDINE 20 MG TAB PO SCH ×2 (07:53→20:21)
[2021-11-27] MEDS: HEPARIN SODIUM,PORCINE/PF 5,000 UNIT/0.5 ML SYRINGE SQ SCH ×2 (07:53→22:30)
[2021-11-27] MEDS: ALPRAZolam 1 MG TAB PO SCH ×3 (07:53→22:30)
[2021-11-27] MEDS: lamoTRIgine 100 MG TAB PO SCH (07:54)
[2021-11-27] MEDS: NICOTINE 14MG/24HR PATCH TRANSDERM SCH (07:54)
[2021-11-27] MEDS: ACETAMINOPHEN TAB 325 MG TAB PO PRN (08:52)
[2021-11-27] MEDS ORDERED: HYDROmorphone 4 MG TABLET PO SCH (11:00)
[2021-11-27] MEDS: HYDROmorphone 2 MG TAB PO SCH ×2 (11:40→22:30)
--- NOTE | 2021-11-27 14:21 | P.PN ---
Subjective - History of Present Illness: 41-year-old female who presented with right upper quadrant and epigastric abdominal pain. It started 7 days ago, last Thursday. Due to the pain she went to the ER on Thursday and had an ultrasound done that showed gallbladder sludge. She was discharged from the ER. However, her right upper quadrant pain became worse and she came back to the hospital. She was having nausea and vomiting especially after eating. She was throwing up bile eventually. No diarrhea, no fevers or chills.. Upon admission her vital signs and labs were essentially stable. She was seen by surgery and cholecystectomy was planned for tomorrow. We are seeing this patient for medical management. She has history of fibromyal zoë, remote pulmonary embolus, chronic back pain, ankylosing spondylitis, chronic constipation, anxiety, bipolar, depression, ADHD. Interval history: Patient was seen and examined at the bedside. Status post laparoscopic cholecystectomy. She still complaining of pain around her surgical incision. She denies any chest pain or shortness of breath. Physical examination: General: non toxic, no distress, appears at stated age Derm: warm, dry Head: atraumatic, normocephalic, symmetric Eyes: EOMI, no lid lag, anicteric sclera Mouth: no lip lesion, mucus membranes moist Cardiovascular: S1S2 reg, no murmur, positive posterior tibial pulse bilateral, Lungs: CTA bilateral, no rhonchi, no rales , no accessory muscle use Abdominal: soft, slightly tender on palpation around the surgical incision. No rebound tenderness or rigidity. no guarding, no appreciable organomegaly Ext: no gross muscle atrophy, no edema, no contractures Neuro: CN II-XI grossly intact, no focal neuro deficits Psych: Alert, oriented, appropriate affect Assessment and plan: #Acute cholecystitis Status post laparoscopic cholecystectomy November 26 Pain control Advance diet per general surgery Chronic medical condition: Fibromyalgia, Hx of Pulmonary Embolus, Chronic back pain, Ankylosing spondylitis, Anxiety, bipolar, depression, ADHD All stable Resume meds once able to take by mouth Objective - Vital Signs Vital signs: Vital Signs Temp 98.4 F 11/27/21 06:55 Pulse 104 H 11/27/21 06:55 Resp 16 11/27/21 06:55 BP 107/64 11/27/21 06:55 Pulse Ox 98 11/27/21 06:55 FiO2 Intake & Output 11/26/21 11/27/21 11/27/21 18:59 06:59 18:59 Intake Total 1330 236 Output Total 5 Balance 1325 236 Weight 85.275 kg Intake: IV 850 Oral 480 236 Output: Estimated Blood Loss 5 Other: Voiding Method Toilet Toilet # Voids 2 2 - Labs CBC & Chem 7: 11/26/21 06:22 11/26/21 06:22 Labs: Microbiology - Last 24 Hours (Table) 11/25/21 01:36 Blood Culture - Preliminary Blood No Growth after 48 hours
--- NOTE | 2021-11-27 14:45 | P.PN ---
Subjective Progress Note Date: 11/27/21 CHIEF COMPLAINT: Cholecystitis HISTORY OF PRESENT ILLNESS: Patient is postop day #1 status post laparoscopic cholecystectomy. She is reporting abdominal pain and that her pain is not fully controlled. She has required the IV Dilaudid. Denies any nausea or vomiting. Denies any flatus. She has been up and ambulating. Denies any difficulty urinating. Low-grade temp 99.1. Mild tachycardic heart rate 102 WBC is 7.7. Patient reports taking oral Dilaudid and [place] at home for pain. Has history of fibromyalgia. Note that patient did have some bleeding at incision sites through the night. This has resolved. Patient seen and examined with Dr. Mata PHYSICAL EXAM: VITAL SIGNS: Reviewed. GENERAL: Well-developed in no acute distress. HEENT: No sclera icterus. Extraocular movements grossly intact. Moist buccal mucosa. Head is atraumatic, normocephalic. ABDOMEN: Soft. Nondistended. Abdominal incision sites with dried blood noted. No active bleeding. NEUROLOGIC: Alert and oriented. Cranial nerves II through XII grossly intact. ASSESSMENT: 1. Cholecystitis status post laparoscopic cholecystectomy PLAN: -Continue pain management. Resumed patient's oral Dilaudid dose. Continue [place]. Add IV Toradol to help with pain -Continue supportive care continue antibiotics -Discontinue the IV Dilaudid -Encourage patient to ambulate -Ordered Mylicon drops -Continue ice as needed -GI prophylaxis Pepcid and DVT prophylaxis subcu heparin Physician Study Hall Supervisor note has been reviewed by physician. Signing provider agrees with the documented findings, assessment, and plan of care. Objective - Vital Signs Vital signs: Vital Signs Temp 99.1 F 11/27/21 14:35 Pulse 102 H 11/27/21 14:35 Resp 18 11/27/21 14:35 BP 117/73 11/27/21 14:35 Pulse Ox 93 L 11/27/21 14:35 FiO2 Intake & Output 11/26/21 11/27/21 11/27/21 18:59 06:59 18:59 Intake Total 1330 236 Output Total 5 Balance 1325 236 Weight 85.275 kg Intake: IV 850 Oral 480 236 Output: Estimated Blood Loss 5 Other: Voiding Method Toilet Toilet # Voids 2 2 - Labs CBC & Chem 7: 11/26/21 06:22 11/26/21 06:22 Labs: Microbiology - Last 24 Hours (Table) 11/25/21 01:36 Blood Culture - Preliminary Blood No Growth after 48 hours
[2021-11-27] MEDS: LACTATED RINGERS 1,000 ML IV SCH (17:13)
[2021-11-27] MEDS: KETOROLAC 15 MG/ML 1 ML VIAL IVP PRN (17:42)
[2021-11-27] MEDS: HYDROcodone/APAP 7.5-325MG 1 EACH TAB PO PRN (20:20)
[2021-11-27] MEDS: DOCUSATE 100 MG CAP PO SCH (22:30)
[2021-11-27] MEDS: MELATONIN 5 MG TABLET PO SCH (22:30)
[2021-11-28 00:44] VITALS: RESP 16
[2021-11-28] MEDS: KETOROLAC 15 MG/ML 1 ML VIAL IVP PRN (04:14)
[2021-11-28] MEDS: lamoTRIgine 100 MG TAB PO SCH (08:12)
[2021-11-28] MEDS: NICOTINE 14MG/24HR PATCH TRANSDERM SCH (08:12)
[2021-11-28] MEDS: ALPRAZolam 1 MG TAB PO SCH (08:12)
[2021-11-28] MEDS: DOCUSATE 100 MG CAP PO SCH (08:13)
[2021-11-28] MEDS: PIPERACILLIN-TAZOBACTAM 3.375 GM in SODIUM CHLORIDE 0.9% 100 ML IVPB SCH (08:13)
[2021-11-28] MEDS: HEPARIN SODIUM,PORCINE/PF 5,000 UNIT/0.5 ML SYRINGE SQ SCH (08:13)
[2021-11-28] MEDS: HYDROmorphone 2 MG TAB PO SCH (08:13)
[2021-11-28] MEDS: FAMOTIDINE 20 MG TAB PO SCH (08:13)
[2021-11-28] MEDS: SODIUM CHLORIDE 0.9% 1,000 ML IV SCH (08:15)
[2021-11-28 08:41] VITALS: BP 110/67; PULSE 78; TEMP 98.2
[2021-11-28 10:29] LABS: Basophils # (A) 0.1 k/uL (0-0.2); Basophils % (A) 1 %; Eosinophils # (A) 0.3 k/uL (0-0.7); Eosinophils % (A) 5 %; HCT 34.4 % (34.0-46.0); HGB 10.9 gm/dL (11.4-16.0); Hypochromasia Slight; Lymphocytes # (A) 2.2 k/uL (1.0-4.8); Lymphocytes % (A) 32 %; MCH 28.4 pg (25.0-35.0); MCHC 31.8 g/dL (31.0-37.0); MCV 89.2 fL (80.0-100.0); Mean Platelet Volume 7.9; Monocytes # (A) 0.3 k/uL (0-1.0); Monocytes % (A) 4 %; Neutrophils # (A) 3.8 k/uL (1.3-7.7); Neutrophils % (A) 57 %; Platelet Count 252 k/uL (150-450); RBC 3.85 m/uL (3.80-5.40); RDW 14.8 % (11.5-15.5); WBC 6.8 k/uL (3.8-10.6)
[2021-11-28 10:40] LABS: ALT 56 U/L (4-34); AST 71 U/L (14-36); African American GFR (CKD) >90 (>60 ml/min/1.73 sqM); Albumin 3.6 g/dL (3.5-5.0); Albumin/Globulin Ratio 1.4; Alkaline Phosphatase 53 U/L (38-126); Anion Gap 7 mmol/L; Blood Urea Nitrogen 4 mg/dL (7-17); Calcium 8.5 mg/dL (8.4-10.2); Carbon Dioxide 23 mmol/L (22-30); Chloride 112 mmol/L (98-107); Globulin 2.5 g/dL; Glucose 125 mg/dL (74-99); Non-African American GFR(CKD) >90 (>60 ml/min/1.73 sqM); Potassium 3.5 mmol/L (3.5-5.1); Sodium 142 mmol/L (137-145); Total Bilirubin 0.2 mg/dL (0.2-1.3); Total Protein 6.1 g/dL (6.3-8.2)
--- NOTE | 2021-11-28 11:10 | P.DS ---
Providers Date of admission: 11/25/21 00:27 Expected date of discharge: 11/28/21 Attending physician: Trey Mata Consults: 11/25/21 08:41 Consult Physician Routine Consulting Provider: Mansi Mills Consult Reason/Comments: medical management Do you want consulting provider notified?: Yes Primary care physician: Josse Austin Hospital Course: Discharge diagnosis 1. Cholecystitis status post laparoscopic cholecystectomy Hospital course This is a 41-year-old female who presented with right upper quadrant abdominal pain. Ultrasound had some evidence of gallbladder sludge and positive [place] sign. Patient status post laparoscopic cholecystectomy. Patient tolerated surgery well. Her pain is controlled. She is up and ambulate. She is having flatus. She is afebrile. She is stable for discharge. Please refer to chart for further details. Physician Intake Clinician note has been reviewed by physician. Signing provider agrees with the documented findings, assessment, and plan of care. Patient Condition at Discharge: Stable Plan - Discharge Summary New Discharge Prescriptions: New Docusate [Colace] 100 mg PO BID #30 capsule Continue Hydrocodone/Acetaminophen [[place] 10-325] 1 tab PO Q8H PRN PRN Reason: Pain ALPRAZolam [Xanax] 1 mg PO TID HYDROmorphone HCL [Dilaudid] 8 mg PO Q8H lamoTRIgine [LaMICtal] 100 mg PO DAILY Melatonin [Melatonin ER] 10 mg PO HS Albuterol Inhaler [Ventolin Hfa Inhaler] 2 puff INHALATION RT-Q4H PRN PRN Reason: Cough Cyclobenzaprine [Flexeril] 10 mg PO TID Famotidine [Pepcid] 40 mg PO DAILY Ibuprofen [Motrin] 800 mg PO Q8H PRN PRN Reason: Pain Discharge Medication List ALPRAZolam [Xanax] 1 mg PO TID 12/13/13 [History] Hydrocodone/Acetaminophen [[place] 10-325] 1 tab PO Q8H PRN 12/13/13 [History] HYDROmorphone HCL [Dilaudid] 8 mg PO Q8H 11/01/15 [History] lamoTRIgine [LaMICtal] 100 mg PO DAILY 08/14/16 [History] Albuterol Inhaler [Ventolin Hfa Inhaler] 2 puff INHALATION RT-Q4H PRN 02/18/19 [History] Melatonin [Melatonin ER] 10 mg PO HS 02/18/19 [History] Cyclobenzaprine [Flexeril] 10 mg PO TID 11/25/21 [History] Famotidine [Pepcid] 40 mg PO DAILY 11/25/21 [History] Ibuprofen [Motrin] 800 mg PO Q8H PRN 11/25/21 [History] Docusate [Colace] 100 mg PO BID #30 capsule 11/28/21 [Rx] Follow up Appointment(s)/Referral(s): Josse Austin MD [Primary Care Provider] - 1-2 days Trey Mata MD [STAFF PHYSICIAN] - 1 Week Patient Instructions/Handouts: Abdominal Pain (ED) Activity/Diet/Wound Care/Special Instructions: No driving while taking [place] or oral dilaudid No lifting over 10 pounds Shower daily. No soaking or tub baths for 2 weeks Very light activity until you are reevaluated at your follow up appointment with your surgeon Discharge Disposition: HOME SELF-CARE
--- NOTE | 2021-11-28 12:49 | P.PN ---
Subjective - History of Present Illness: 41-year-old female who presented with right upper quadrant and epigastric abdominal pain. It started 7 days ago, last Thursday. Due to the pain she went to the ER on Thursday and had an ultrasound done that showed gallbladder sludge. She was discharged from the ER. However, her right upper quadrant pain became worse and she came back to the hospital. She was having nausea and vomiting especially after eating. She was throwing up bile eventually. No diarrhea, no fevers or chills.. Upon admission her vital signs and labs were essentially stable. She was seen by surgery and cholecystectomy was planned for tomorrow. We are seeing this patient for medical management. She has history of fibromyal zoë, remote pulmonary embolus, chronic back pain, ankylosing spondylitis, chronic constipation, anxiety, bipolar, depression, ADHD. Interval history: Patient was seen and examined at the bedside. Patient denies any chest pain or shortness of breath. Physical examination: General: non toxic, no distress, appears at stated age Derm: warm, dry Head: atraumatic, normocephalic, symmetric Eyes: EOMI, no lid lag, anicteric sclera Mouth: no lip lesion, mucus membranes moist Cardiovascular: S1S2 reg, no murmur, positive posterior tibial pulse bilateral, Lungs: CTA bilateral, no rhonchi, no rales , no accessory muscle use Abdominal: soft, slightly tender on palpation around the surgical incision. No rebound tenderness or rigidity. no guarding, no appreciable organomegaly Ext: no gross muscle atrophy, no edema, no contractures Neuro: CN II-XI grossly intact, no focal neuro deficits Psych: Alert, oriented, appropriate affect Assessment and plan: #Acute cholecystitis Status post laparoscopic cholecystectomy November 26 Pain control Diet was advanced by general surgery #Mildly elevated LFTs -Possibly secondary to recent surgery -To be managed and monitored by general surgeon -I recommend checking LFTs 1 week after discharge per general surgery and PCP Chronic medical condition: Fibromyalgia, Hx of Pulmonary Embolus, Chronic back pain, Ankylosing spondylitis, Anxiety, bipolar, depression, ADHD All stable Resume meds once able to take by mouth Objective - Vital Signs Vital signs: Vital Signs Temp 98.2 F 11/28/21 07:20 Pulse 78 11/28/21 07:20 Resp 16 11/28/21 07:20 BP 110/67 11/28/21 07:20 Pulse Ox 93 L 11/28/21 07:20 FiO2 Intake & Output 11/27/21 11/28/21 11/28/21 18:59 06:59 18:59 Intake Total 236 1000 240 Balance 236 1000 240 Intake: Oral 236 1000 240 Other: Voiding Method Toilet # Voids 2 - Labs CBC & Chem 7: 11/28/21 10:00 11/28/21 10:00 Labs: Abnormal Lab Results - Last 24 Hours (Table) 11/28/21 11/28/21 Range/Units 10:00 10:00 Hgb 10.9 L (11.4-16.0) gm/dL Chloride 112 H (98-107) mmol/L BUN 4 L (7-17) mg/dL Glucose 125 H (74-99) mg/dL AST 71 H (14-36) U/L ALT 56 H (4-34) U/L Total Protein 6.1 L (6.3-8.2) g/dL Microbiology - Last 24 Hours (Table) 11/25/21 01:36 Blood Culture - Preliminary Blood No Growth after 72 hours
== END 2021-11-28 12:06 | disposition home or self-care (01) ==
LOC: EC 19:35 → 6NMEDSUR 11-25 00:27
PROVIDERS: ADMIT Surgery; ATTEND Surgery
DX: K81.1 Chronic cholecystitis (principal); K81.0 Acute cholecystitis; M79.7 Fibromyalgia; Z86.711 Personal history of pulmonary embolism; G89.29 Other chronic pain; M54.9 Dorsalgia, unspecified; M45.9 Ankylosing spondylitis of unspecified sites in spine; J45.909 Unspecified asthma, uncomplicated; K59.09 Other constipation; F17.210 Nicotine dependence, cigarettes, uncomplicated; F90.9 Attention-deficit hyperactivity disorder, unspecified type; F41.9 Anxiety disorder, unspecified; F31.9 Bipolar disorder, unspecified; Z98.51 Tubal ligation status; Z83.1 Family history of other infectious and parasitic diseases; Z82.69 Family history of other diseases of the musculoskeletal system and connective tissue; Z79.899 Other long term (current) drug therapy; Z79.1 Long term (current) use of non-steroidal anti-inflammatories (NSAID)
CPT/HCPCS: 96376 ×2; 96372; 96375; 96374; 99285; 36415; 94640; 81025; 88304; 80053 ×2; 80048; 82150; 83690; 85025 ×3; 81001; 84703; 87040; 74018; 74177; 47562; G0378 ×4; S4990 ×4; J2543 ×4; J2250; J1644 ×5; J1100; J2710; J2405 ×2; J3010; J1170 ×5; J1885 ×3; J0330; J2704; Q9967; J2001

== ENCOUNTER 2022-01-27 12:48 | Emergency (ER) | payer OTHER, MEDICARE ==
[2022-01-27 13:05] VITALS: TEMP 98.5
[2022-01-27] MEDS ORDERED: SODIUM CHLORIDE 0.9% 500 ML 500 ML IV STA (13:25)
--- NOTE | 2022-01-27 13:38 | ED ---
Abdominal Pain HPI - General Chief Complaint: Abdominal Pain Stated Complaint: ABD pain Time Seen by Provider: 01/27/22 13:25 Source: patient, RN notes reviewed, old records reviewed Mode of arrival: ambulatory Limitations: no limitations - History of Present Illness Initial Comments: Nontoxic appearing 41-year-old female presents to emergency room with complaints of ongoing abdominal pain and cramping with some rectal bleeding. She states that she was seen in the ER on the for these same symptoms and had a CT scan and blood work done. She was diagnosed with colitis and hemorrhoids. She states she was only given a prescription for Zofran, Levsin and Anusol rectal suppository. She states that she did have an appointment with her primary care doctor today for follow-up however she called to get in sooner and was recommended she come back to the emergency room. She denies any fevers. No vomiting. She states that she did have 2 bowel movements that had blood clots in them today which concerned her. She states that she has a history of a cholecystectomy in October of this year and that's what her problems started. She also has a history of irritable bowel syndrome, fibromyalgia, hemorrhoids and chronic back pain. MD Complaint: abdominal pain -: month(s) (2) Location: diffuse Radiation: none Severity scale (1-10): 8 Quality: cramping Consistency: intermittent Improves With: nothing Worsens With: bowel movement - Related Data Home Medications Medication Instructions Recorded Confirmed ALPRAZolam [Xanax] 1 mg PO TID 12/13/13 11/25/21 Hydrocodone/Acetaminophen [[place] 1 tab PO Q8H PRN 12/13/13 11/25/21 10-325] HYDROmorphone HCL [Dilaudid] 8 mg PO Q8H 11/01/15 11/25/21 lamoTRIgine [LaMICtal] 100 mg PO DAILY 08/14/16 11/25/21 Albuterol Inhaler [Ventolin Hfa 2 puff INHALATION RT-Q4H PRN 02/18/19 11/25/21 Inhaler] Melatonin [Melatonin ER] 10 mg PO HS 02/18/19 11/25/21 Cyclobenzaprine [Flexeril] 10 mg PO TID 11/25/21 11/25/21 Famotidine [Pepcid] 40 mg PO DAILY 11/25/21 11/25/21 Ibuprofen [Motrin] 800 mg PO Q8H PRN 11/25/21 11/25/21 Previous Rx's Medication Instructions Recorded Docusate [Colace] 100 mg PO BID #30 capsule 11/28/21 Hydrocortisone Suppository 25 mg RECTAL BID 3 Days #6 01/23/22 [Anusol-Hc] suppositor Hyoscyamine Sulfate [Levsin] 0.125 mg PO Q8H PRN 7 Days #21 01/23/22 tablet Ondansetron Odt [Zofran Odt] 8 mg PO Q8HR PRN 7 Days #21 tab 01/23/22 polyethylene glycoL 3350 [Miralax] 17 gm PO DAILY 30 Days #30 packet 01/27/22 Allergies Allergy/AdvReac Type Severity Reaction Status Date / Time No Known Allergies Allergy Verified 01/27/22 13:05 Review of Systems ROS Statement: Those systems with pertinent positive or pertinent negative responses have been documented in the HPI. ROS Other: All systems not noted in ROS Statement are negative. Past Medical History Past Medical History: Fibromyalgia, Pulmonary Embolus (PE) Additional Past Medical History / Comment(s): chronic back pain, ankylosing spondylitis, ruling out multiple sclerosis, chronic constipation History of Any Multi-Drug Resistant Organisms: None Reported Past Surgical History: Cholecystectomy, Tubal Ligation Additional Past Surgical History / Comment(s): cely de paz 11/28/2021 Dr. carias. d&c Past Anesthesia/Blood Transfusion Reactions: No Reported Reaction Past Psychological History: ADD/ADHD, Anxiety, Bipolar, Depression Smoking Status: Current every day smoker Past Alcohol Use History: Occasional Past Drug Use History: None Reported - Past Family History Son(s) History Unknown: Yes Additional Family Medical History / Comment(s): MRSA on face Mother Family Medical History: Fibromyalgia, Musculoskeletal Disorder General Exam Limitations: no limitations General appearance: alert, in no apparent distress Head exam: Present: atraumatic Eye exam: Present: normal appearance Neck exam: Present: full ROM. Absent: meningismus Respiratory exam: Absent: respiratory distress, accessory muscle use Cardiovascular Exam: Present: tachycardia GI/Abdominal exam: Present: soft. Absent: distended, tenderness, guarding, rebound, rigid Rectal exam: Present: hemorrhoids Extremities exam: Present: normal capillary refill. Absent: pedal edema Neurological exam: Present: alert, oriented X3 Psychiatric exam: Present: normal affect, normal mood Skin exam: Present: warm, dry, normal color. Absent: cyanosis, diaphoretic, petechiae, pallor Course Vital Signs 01/27/22 01/27/22 01/27/22 13:02 13:51 15:14 Temperature 98.5 F Pulse Rate 109 H 100 94 Respiratory 18 20 20 Rate Blood Pressure 112/69 97/76 113/74 O2 Sat by Pulse 99 92 L 92 L Oximetry 01/27/22 16:16 Temperature Pulse Rate 96 Respiratory 18 Rate Blood Pressure 110/71 O2 Sat by Pulse 95 Oximetry Medical Decision Making - Medical Decision Making Hemoglobin and hematocrit are stable. There is no evidence of leukocytosis. White count is down from 4 days ago. Patient has had no fevers. Electrolytes are unremarkable. There is no evidence of urinary tract infection. CT abdomen and pelvis with contrast was performed on January 23 showing evidence of cholecystectomy with no evidence of bowel obstruction. There was an uncomplicated acute colitis likely inflammatory in nature as today's labs show a decrease in white blood count and patient has been afebrile. Patient does have internal and external hemorrhoids which were treated with Anusol at last visit 01/23/22. She was encouraged to continue the Anusol. I also directed her to take MiraLAX for constipation as she states she only has bowel movements one or 2 a week. Her abdominal pain is likely related to inflammatory colitis in addition to her irritable bowel syndrome. She was directed to continue the medications previously prescribed including Zofran and Levsin Vital signs are stable. She was directed to follow-up with GI for abdominal pain and Dr. Carias for possible excision of her hemorrhoids. She was directed to return to the emergency room with any new or concerning symptoms including fevers, persistent nausea vomiting or increased abdominal pain especially right lower quadrant pain. She is agreeable to this plan of care. Case was discussed with Dr. Terrell. - Lab Data Result diagrams: 01/27/22 13:41 01/27/22 13:41 Lab Results 01/27/22 01/27/22 01/27/22 Range/Units 13:41 13:41 13:41 WBC 8.9 (3.8-10.6) k/uL RBC 4.78 (3.80-5.40) m/uL Hgb 12.7 (11.4-16.0) gm/dL Hct 41.0 (34.0-46.0) % MCV 85.7 (80.0-100.0) fL MCH 26.6 (25.0-35.0) pg MCHC 31.1 (31.0-37.0) g/dL RDW 14.8 (11.5-15.5) % Plt Count 335 (150-450) k/uL MPV 7.8 Neutrophils % 68 % Lymphocytes % 23 % Monocytes % 4 % Eosinophils % 4 % Basophils % 1 % Neutrophils # 6.1 (1.3-7.7) k/uL Lymphocytes # 2.0 (1.0-4.8) k/uL Monocytes # 0.3 (0-1.0) k/uL Eosinophils # 0.3 (0-0.7) k/uL Basophils # 0.1 (0-0.2) k/uL PT (9.0-12.0) sec INR (<1.2) APTT (22.0-30.0) sec Sodium 140 (137-145) mmol/L Potassium 4.2 (3.5-5.1) mmol/L Chloride 104 (98-107) mmol/L Carbon Dioxide 26 (22-30) mmol/L Anion Gap 10 mmol/L BUN 10 (7-17) mg/dL Creatinine 0.87 (0.52-1.04) mg/dL Est GFR (CKD-EPI)AfAm >90 (>60 ml/min/1.73 sqM) Est GFR (CKD-EPI)NonAf 84 (>60 ml/min/1.73 sqM) Glucose 101 H (74-99) mg/dL Plasma Lactic Acid [place] 0.8 (0.7-2.0) mmol/L Calcium 9.7 (8.4-10.2) mg/dL Total Bilirubin 0.4 (0.2-1.3) mg/dL AST 16 (14-36) U/L ALT 12 (4-34) U/L Alkaline Phosphatase 65 (38-126) U/L Total Protein 7.6 (6.3-8.2) g/dL Albumin 4.7 (3.5-5.0) g/dL Amylase 54 (30-110) U/L Lipase 58 (23-300) U/L Urine Color Urine Appearance (Clear) Urine pH (5.0-8.0) Ur Specific [place] (1.001-1.035) Urine Protein (Negative) Urine Glucose (UA) (Negative) Urine Ketones (Negative) Urine Blood (Negative) Urine Nitrite (Negative) Urine Bilirubin (Negative) Urine Urobilinogen (<2.0) mg/dL Ur Leukocyte Esterase (Negative) Urine RBC (0-5) /hpf Urine WBC (0-5) /hpf Ur Squamous Epith Cells (0-4) /hpf Urine Bacteria (None) /hpf 01/27/22 01/27/22 Range/Units 13:41 13:41 WBC (3.8-10.6) k/uL RBC (3.80-5.40) m/uL Hgb (11.4-16.0) gm/dL Hct (34.0-46.0) % MCV (80.0-100.0) fL MCH (25.0-35.0) pg MCHC (31.0-37.0) g/dL RDW (11.5-15.5) % Plt Count (150-450) k/uL MPV Neutrophils % % Lymphocytes % % Monocytes % % Eosinophils % % Basophils % % Neutrophils # (1.3-7.7) k/uL Lymphocytes # (1.0-4.8) k/uL Monocytes # (0-1.0) k/uL Eosinophils # (0-0.7) k/uL Basophils # (0-0.2) k/uL PT 10.1 (9.0-12.0) sec INR 0.9 (<1.2) APTT 25.7 (22.0-30.0) sec Sodium (137-145) mmol/L Potassium (3.5-5.1) mmol/L Chloride (98-107) mmol/L Carbon Dioxide (22-30) mmol/L Anion Gap mmol/L BUN (7-17) mg/dL Creatinine (0.52-1.04) mg/dL Est GFR (CKD-EPI)AfAm (>60 ml/min/1.73 sqM) Est GFR (CKD-EPI)NonAf (>60 ml/min/1.73 sqM) Glucose (74-99) mg/dL Plasma Lactic Acid [place] (0.7-2.0) mmol/L Calcium (8.4-10.2) mg/dL Total Bilirubin (0.2-1.3) mg/dL AST (14-36) U/L ALT (4-34) U/L Alkaline Phosphatase (38-126) U/L Total Protein (6.3-8.2) g/dL Albumin (3.5-5.0) g/dL Amylase (30-110) U/L Lipase (23-300) U/L Urine Color Light Yellow Urine Appearance Clear (Clear) Urine pH 6.5 (5.0-8.0) Ur Specific [place] 1.005 (1.001-1.035) Urine Protein Negative (Negative) Urine Glucose (UA) Negative (Negative) Urine Ketones Negative (Negative) Urine Blood Large H (Negative) Urine Nitrite Negative (Negative) Urine Bilirubin Negative (Negative) Urine Urobilinogen <2.0 (<2.0) mg/dL Ur Leukocyte Esterase Small H (Negative) Urine RBC 1 (0-5) /hpf Urine WBC 8 H (0-5) /hpf Ur Squamous Epith Cells 3 (0-4) /hpf Urine Bacteria Rare H (None) /hpf Disposition Clinical Impression: Abdominal pain, Hemorrhoids Disposition: HOME SELF-CARE Condition: Good Instructions (If sedation given, give patient instructions): Hemorrhoids (ED), Abdominal Pain (ED) Additional Instructions: Continue your previously prescribed medications and use Anusol for hemorrhoid pain. You can also use witch marvin pads for pain relief and swelling. Use MiraLAX once a day to prevent constipation and rectal straining. Please contact your primary care doctor this week for continuation of care. Follow-up with Dr. 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 Prescriptions: polyethylene glycoL 3350 [Miralax] 17 gm PO DAILY 30 Days #30 packet Is patient prescribed a controlled substance at d/c from ED?: No Referrals: Ramon Felix MD [Primary Care Provider] - 1-2 days Time of Disposition: 15:47
[2022-01-27 13:59] LABS: Basophils # (A) 0.1 k/uL (0-0.2); Basophils % (A) 1 %; Eosinophils # (A) 0.3 k/uL (0-0.7); Eosinophils % (A) 4 %; HGB 12.7 gm/dL (11.4-16.0); Lymphocytes % (A) 23 %; MCH 26.6 pg (25.0-35.0); MCHC 31.1 g/dL (31.0-37.0); MCV 85.7 fL (80.0-100.0); Mean Platelet Volume 7.8; Monocytes # (A) 0.3 k/uL (0-1.0); Monocytes % (A) 4 %; Neutrophils # (A) 6.1 k/uL (1.3-7.7); Neutrophils % (A) 68 %; Platelet Count 335 k/uL (150-450); RBC 4.78 m/uL (3.80-5.40); RDW 14.8 % (11.5-15.5); WBC 8.9 k/uL (3.8-10.6)
[2022-01-27 14:05] LABS: Appearance,Urine Clear (Clear); Bacteria,Urine Rare /hpf; Bilirubin,Urine Negative (Negative); Blood,Urine Large (Negative); Color,Urine Light Yellow; Glucose,Urine (UA) Negative (Negative); Ketones,Urine Negative (Negative); Leukocyte Esterase,Urine Small (Negative); Nitrite,Urine Negative (Negative); PH, Urine 6.5 (5.0-8.0); Protein,Urine Negative (Negative); RBC,Urine 1 /hpf (0-5); Specific Gravity,Urine 1.005 (1.001-1.035); Squamous Epithelial Cell,Urine 3 /hpf (0-4); Urobilinogen,Urine <2.0 mg/dL (<2.0); WBC,Urine 8 /hpf (0-5)
[2022-01-27] MEDS ORDERED: HYDROCORTISONE SUPPOSITORY 25 MG SUPP RECTAL STA (14:10)
[2022-01-27 14:11] LABS: INR 0.9 (<1.2); Partial Thromboplastin Time 25.7 sec (22.0-30.0); Prothrombin Time 10.1 sec (9.0-12.0)
[2022-01-27 14:15] LABS: ALT 12 U/L (4-34); AST 16 U/L (14-36); African American GFR (CKD) >90 (>60 ml/min/1.73 sqM); Albumin 4.7 g/dL (3.5-5.0); Alkaline Phosphatase 65 U/L (38-126); Amylase 54 U/L (30-110); Anion Gap 10 mmol/L; Blood Urea Nitrogen 10 mg/dL (7-17); Calcium 9.7 mg/dL (8.4-10.2); Carbon Dioxide 26 mmol/L (22-30); Chloride 104 mmol/L (98-107); Glucose 101 mg/dL (74-99); Lipase 58 U/L (23-300); Non-African American GFR(CKD) 84 (>60 ml/min/1.73 sqM); Potassium 4.2 mmol/L (3.5-5.1); Sodium 140 mmol/L (137-145); Total Bilirubin 0.4 mg/dL (0.2-1.3); Total Protein 7.6 g/dL (6.3-8.2)
[2022-01-27] MEDS ORDERED: ACETAMINOPHEN TAB 325 MG TAB PO STA (14:33)
[2022-01-27] MEDS ORDERED: METOCLOPRAMIDE 5 MG/ML 2 ML VIAL IVP STA (14:33)
[2022-01-27 16:17] VITALS: BP 110/71; PULSE 96; RESP 18
== END 2022-01-27 16:17 | disposition home or self-care (01) ==
LOC: EC 12:48
DX: R10.84 Generalized abdominal pain (principal); K64.4 Residual hemorrhoidal skin tags; K64.8 Other hemorrhoids; F17.200 Nicotine dependence, unspecified, uncomplicated; M79.7 Fibromyalgia; Z79.899 Other long term (current) drug therapy; Z90.49 Acquired absence of other specified parts of digestive tract
CPT/HCPCS: 36415; 80053; 82150; 83605; 83690; 85025; 85610; 85730; 81001; 99284; 96374; 96361; J2765

== ENCOUNTER 2022-02-13 08:40 | Day surgery (SDC) | payer OTHER, MEDICARE ==
[~2022-02-13 08:40] MED LIST: LACTATED RINGERS 1,000 ML IV SCH
[2022-02-13 09:59] VITALS: TEMP 98.5
[2022-02-13] MEDS ORDERED: LIDOCAINE 1% (10MG/ML) FOR IV START INTRADERMA ONE (10:14)
[2022-02-13] MEDS ORDERED: fentaNYL (PF) 50 MCG/ML 2 ML AMP ONE (10:55)
[2022-02-13] MEDS ORDERED: PROPOFOL 10 MG/ML 20 ML VIAL IV ONE (10:55)
[2022-02-13] MEDS ORDERED: LIDOCAINE 2% INJ 20 MG/ML (2 ML VIAL) ONE (10:55)
--- NOTE | 2022-02-13 10:59 | P.GSHP ---
History of Present Illness H&P Date: 02/13/22 Chief Complaint: GI bleed This a 42-year-old female who presents today for colonoscopy. She's had issues with GI bleed. Past Medical History Past Medical History: Fibromyalgia, Pulmonary Embolus (PE) Additional Past Medical History / Comment(s): chronic back pain, ankylosing spondylitis, ruling out multiple sclerosis, chronic constipation HEMMOROIDS. History of Any Multi-Drug Resistant Organisms: None Reported Past Surgical History: Cholecystectomy, Tubal Ligation Additional Past Surgical History / Comment(s): cely de paz 11/28/2021 Dr. carias. d&c Past Anesthesia/Blood Transfusion Reactions: No Reported Reaction Past Psychological History: ADD/ADHD, Anxiety, Bipolar, Depression Smoking Status: Current every day smoker Past Alcohol Use History: Occasional Additional Past Alcohol Use History / Comment(s): Patient states that she smokes about a half pack a day Past Drug Use History: None Reported - Past Family History Son(s) History Unknown: Yes Additional Family Medical History / Comment(s): MRSA on face Mother Family Medical History: Fibromyalgia, Musculoskeletal Disorder Medications and Allergies Home Medications Medication Instructions Recorded Confirmed Type ALPRAZolam [Xanax] 1 mg PO TID 12/13/13 02/13/22 History Hydrocodone/Acetaminophen [[place] 1 tab PO Q8H PRN 12/13/13 02/13/22 History 10-325] HYDROmorphone HCL [Dilaudid] 8 mg PO Q8H 11/01/15 02/13/22 History lamoTRIgine [LaMICtal] 100 mg PO QAM 08/14/16 02/13/22 History Albuterol Inhaler [Ventolin Hfa 2 puff INHALATION RT-Q4H PRN 02/18/19 02/13/22 History Inhaler] Melatonin [Melatonin ER] 10 mg PO HS 02/18/19 02/13/22 History Cyclobenzaprine [Flexeril] 10 mg PO TID 11/25/21 02/13/22 History Famotidine [Pepcid] 40 mg PO HS 11/25/21 02/13/22 History Ibuprofen [Motrin] 800 mg PO Q8H PRN 11/25/21 02/13/22 History Cetirizine HCl [Zyrtec] 10 mg PO DAILY PRN 02/11/22 02/13/22 History Hydrocortisone Suppository 25 mg RECTAL BID PRN 02/11/22 02/13/22 History [Anusol-Hc] Allergies Allergy/AdvReac Type Severity Reaction Status Date / Time No Known Allergies Allergy Verified 02/13/22 09:53 Surgical - Exam Vital Signs Temp Pulse Resp BP Pulse Ox 98.5 F 88 16 142/86 99 02/13/22 09:53 02/13/22 09:53 02/13/22 09:53 02/13/22 09:53 02/13/22 09:53 - General well developed, well nourished, no distress - Eyes PERRL - ENT normal pinna - Neck no masses - Respiratory normal expansion - Cardiovascular Rhythm: regular - Abdomen Abdomen: soft, non tender Assessment and Plan Assessment: GI bleed. We'll perform colonoscopy
--- NOTE | 2022-02-13 11:13 | P.OP ---
Date of Procedure: 02/13/22 Preoperative Diagnosis: GI bleed Postoperative Diagnosis: Large internal and external hemorrhoids Procedure(s) Performed: Colonoscopy Anesthesia: MAC Surgeon: Trey Mata Pathology: none sent Condition: stable Disposition: PACU Description of Procedure: The patient's placed on the endoscopy table in the lateral position. He received IV sedation. Digital rectal exam was performed. There were large internal and external hemorrhoids. The possible colonoscope was then placed patient anus passed throughout the entire colon. The ileocecal valve was visualized. Cecum, ascending and transverse colon appeared normal. The descending and sigmoid colon appeared normal. The scope was brought back the rectum was normal. Scope withdrawn for patient and large internal and external hemorrhoids were noted. The scope was withdrawn. There is no evidence of any GI bleed. His presumed patient's bleeding from her hemorrhoids.
[2022-02-13 11:46] VITALS: BP 112/68; PULSE 90; RESP 20
== END 2022-02-13 11:45 | disposition home or self-care (01) ==
LOC: ORWHC2ENDO 08:40
PROVIDERS: ATTEND Surgery
DX: K64.8 Other hemorrhoids (principal); K64.9 Unspecified hemorrhoids; M79.7 Fibromyalgia; M54.9 Dorsalgia, unspecified; G89.29 Other chronic pain; M45.9 Ankylosing spondylitis of unspecified sites in spine; F90.9 Attention-deficit hyperactivity disorder, unspecified type; F41.9 Anxiety disorder, unspecified; F31.9 Bipolar disorder, unspecified; F10.99 Alcohol use, unspecified with unspecified alcohol-induced disorder; J45.909 Unspecified asthma, uncomplicated; F17.210 Nicotine dependence, cigarettes, uncomplicated; Z82.69 Family history of other diseases of the musculoskeletal system and connective tissue; Z79.51 Long term (current) use of inhaled steroids; Z79.899 Other long term (current) drug therapy; Z98.51 Tubal ligation status; Z90.89 Acquired absence of other organs; Z86.711 Personal history of pulmonary embolism
CPT/HCPCS: 84703; 45378; J3010; J2704; J2001

== ENCOUNTER 2022-02-14 06:15 | Day surgery (SDC) | payer OTHER, MEDICARE ==
[~2022-02-14 06:15] MED LIST changes: +ACETAMINOPHEN TAB 500 MG TAB PO PRN; +DEXAMETHASONE SOD PHOSPHATE 4 MG/ML 1 ML VIAL IV ONE; +HEPARIN SODIUM,PORCINE/PF 5,000 UNIT/0.5 ML SYRINGE SQ PRN; +HYDROmorphone 0.5 MG/0.5 ML SYRINGE IVP PRN; +ONDANSETRON 4 MG/2 ML VIAL IVP ONE; +Pre Op ABX Message 1 EACH MISC MISCELLANE ONE
[2022-02-14] MEDS ORDERED: LIDOCAINE 1% (10MG/ML) FOR IV START INTRADERMA ONE ×2 (07:00)
[2022-02-14] MEDS ORDERED: MIDAZOLAM 2 MG/2 ML VIAL IV ONE ×3 (07:14→08:55)
--- NOTE | 2022-02-14 09:37 | P.GSHP ---
History of Present Illness H&P Date: 02/14/22 Chief Complaint: Internal and external hemorrhoids This is a 42-year-old female who presents today for internal and external hemorrhoidectomy. Patient had significant issues with pain rectal bleeding from hemorrhoids. Past Medical History Past Medical History: Fibromyalgia, Pulmonary Embolus (PE) Additional Past Medical History / Comment(s): chronic back pain, ankylosing spondylitis, ruling out multiple sclerosis, chronic constipation HEMMOROIDS. History of Any Multi-Drug Resistant Organisms: None Reported Past Surgical History: Cholecystectomy, Tubal Ligation Additional Past Surgical History / Comment(s): cely baldev 11/28/2021 Dr. carias. d&c Past Anesthesia/Blood Transfusion Reactions: No Reported Reaction Past Psychological History: ADD/ADHD, Anxiety, Bipolar, Depression Smoking Status: Current every day smoker Past Alcohol Use History: Occasional Additional Past Alcohol Use History / Comment(s): Patient states that she smokes about a half pack a day Past Drug Use History: None Reported - Past Family History Son(s) History Unknown: Yes Additional Family Medical History / Comment(s): MRSA on face Mother Family Medical History: Fibromyalgia, Musculoskeletal Disorder Medications and Allergies Home Medications Medication Instructions Recorded Confirmed Type ALPRAZolam [Xanax] 1 mg PO TID 12/13/13 02/13/22 History Hydrocodone/Acetaminophen [[place] 1 tab PO Q8H PRN 12/13/13 02/13/22 History 10-325] HYDROmorphone HCL [Dilaudid] 8 mg PO Q8H 11/01/15 02/13/22 History lamoTRIgine [LaMICtal] 100 mg PO QAM 08/14/16 02/13/22 History Albuterol Inhaler [Ventolin Hfa 2 puff INHALATION RT-Q4H PRN 02/18/19 02/13/22 History Inhaler] Melatonin [Melatonin ER] 10 mg PO HS 02/18/19 02/13/22 History Cyclobenzaprine [Flexeril] 10 mg PO TID 11/25/21 02/13/22 History Famotidine [Pepcid] 40 mg PO HS 11/25/21 02/13/22 History Ibuprofen [Motrin] 800 mg PO Q8H PRN 11/25/21 02/13/22 History Cetirizine HCl [Zyrtec] 10 mg PO DAILY PRN 02/11/22 02/13/22 History Hydrocortisone Suppository 25 mg RECTAL BID PRN 02/11/22 02/13/22 History [Anusol-Hc] Allergies Allergy/AdvReac Type Severity Reaction Status Date / Time No Known Allergies Allergy Verified 02/13/22 09:53 Surgical - Exam Vital Signs Temp Pulse Resp BP Pulse Ox 97 F L 103 H 20 155/87 93 L 02/14/22 07:00 02/14/22 07:00 02/14/22 07:00 02/14/22 07:00 02/14/22 07:00 - General well developed, well nourished, no distress - Eyes PERRL - ENT normal pinna - Neck no masses - Respiratory normal expansion - Cardiovascular Rhythm: regular - Abdomen Abdomen: soft, non tender - Rectum Large internal and external hemorrhoids Assessment and Plan Assessment: Internal and external hemorrhoids. We'll perform hemorrhoidectomy
[2022-02-14] MEDS ORDERED: fentaNYL (PF) 50 MCG/ML 2 ML AMP ONE (09:55)
[2022-02-14] MEDS ORDERED: HYDROmorphone (PF) 1 MG/ML ONE (09:55)
[2022-02-14] MEDS ORDERED: LIDOCAINE 2% INJ 20 MG/ML (2 ML VIAL) ONE (09:55)
[2022-02-14] MEDS ORDERED: MIDAZOLAM 2 MG/2 ML VIAL ONE (09:55)
[2022-02-14] MEDS ORDERED: PROPOFOL 10 MG/ML 20 ML VIAL IV ONE (09:55)
[2022-02-14] MEDS ORDERED: SUCCINYLCHOLINE CHLORIDE 200 MG/10 ML VIAL IV ONE (09:55)
[2022-02-14] MEDS ORDERED: SODIUM CHLORIDE 0.9% 50 ML with ceFAZolin 2,000 MG IV ONE ×2 (10:28)
[2022-02-14] MEDS ORDERED: BUPIVACAIN-EPI 0.25%-1:200,000 30 ML VIAL SQ ONE (10:28)
--- NOTE | 2022-02-14 10:40 | P.OP ---
Date of Procedure: 02/14/22 Preoperative Diagnosis: Internal and external hemorrhoids Postoperative Diagnosis: Internal Hemorrhoids Procedure(s) Performed: Internal and external hemorrhoidectomy Anesthesia: TIFFANIE Surgeon: Trey Mata Estimated Blood Loss (ml): 5 Pathology: other (Hemorrhoids) Condition: stable Disposition: PACU Description of Procedure: The patient's placed on the operative table in the prone jackknife position after receiving general anesthesia. Her PICC anus was prepped and draped usual fashion. Patient's significant intravaginal hemorrhoids. The anal retractors placed anus. The left lateral hemorrhoidal column was grasped. Allis clamps and then the hemorrhoid column was dissected free using Harmonic scissors. The right anterior and right posterior hemorrhoid columns were dissected in a pedicle fashion. Hemostasis achieved with left cautery. The wound was then packed with Gelfoam. An anal block sent for formal local Xylocaine. Patient top she will sent to recovery in stable condition.
[2022-02-14 10:52] VITALS: TEMP 97.8
[2022-02-14 11:25] VITALS: RESP 18
[2022-02-14 11:45] VITALS: BP 130/80; PULSE 99
== END 2022-02-14 12:15 | disposition home or self-care (01) ==
LOC: OR 06:15
PROVIDERS: ATTEND Surgery
DX: K64.8 Other hemorrhoids (principal); M79.7 Fibromyalgia; M54.9 Dorsalgia, unspecified; G89.29 Other chronic pain; M45.9 Ankylosing spondylitis of unspecified sites in spine; F90.9 Attention-deficit hyperactivity disorder, unspecified type; F31.9 Bipolar disorder, unspecified; F41.9 Anxiety disorder, unspecified; F17.210 Nicotine dependence, cigarettes, uncomplicated; F10.99 Alcohol use, unspecified with unspecified alcohol-induced disorder; Z90.89 Acquired absence of other organs; Z98.51 Tubal ligation status; Z79.899 Other long term (current) drug therapy; Z79.51 Long term (current) use of inhaled steroids; Z86.711 Personal history of pulmonary embolism; Z82.69 Family history of other diseases of the musculoskeletal system and connective tissue
CPT/HCPCS: 46260; 81025; 88304; J2250; J0330; J1100; J2405; J0690; J3010; J1170; J2704; J1644; J2001

== ENCOUNTER 2022-03-27 08:55 | Day surgery (SDC) | payer OTHER, MEDICARE ==
[2022-03-19 14:45] VITALS: BMI 26.9
[~2022-03-27 08:55] MED LIST changes: -ACETAMINOPHEN TAB 500 MG TAB PO PRN; -DEXAMETHASONE SOD PHOSPHATE 4 MG/ML 1 ML VIAL IV ONE; -HEPARIN SODIUM,PORCINE/PF 5,000 UNIT/0.5 ML SYRINGE SQ PRN; -HYDROmorphone 0.5 MG/0.5 ML SYRINGE IVP PRN; -ONDANSETRON 4 MG/2 ML VIAL IVP ONE; -Pre Op ABX Message 1 EACH MISC MISCELLANE ONE
[2022-03-27] MEDS ORDERED: MIDAZOLAM 2 MG/2 ML VIAL IVP ONE (09:41)
[2022-03-27 09:58] VITALS: TEMP 97.8
[2022-03-27] MEDS ORDERED: LIDOCAINE 2% INJ 20 MG/ML (2 ML VIAL) ONE (10:20)
[2022-03-27] MEDS ORDERED: PROPOFOL 10 MG/ML 20 ML VIAL IV ONE (10:20)
--- NOTE | 2022-03-27 10:25 | P.GSHP ---
History of Present Illness H&P Date: 03/27/22 Chief Complaint: GERD Is a 42-year-old female with history of GERD. Patient presents today for EGD. Past Medical History Past Medical History: Fibromyalgia, Musculoskeletal Disorder, Pulmonary Embolus (PE) Additional Past Medical History / Comment(s): Chronic back pain, Ankylosing Spondylitis, ruling out multiple sclerosis, chronic constipation, hx hemorrhoids. History of Any Multi-Drug Resistant Organisms: None Reported Past Surgical History: Cholecystectomy, Tubal Ligation Additional Past Surgical History / Comment(s): D&C, hemorrhoidectomy. Past Anesthesia/Blood Transfusion Reactions: No Reported Reaction Past Psychological History: ADD/ADHD, Anxiety, Bipolar, Depression Smoking Status: Current every day smoker Past Alcohol Use History: Occasional Additional Past Alcohol Use History / Comment(s): Smokes about a half pack a day. Past Drug Use History: Marijuana Additional Drug Use History / Comment(s): "Marijuana pen." Aware no use 24 hrs prior to procedure. - Past Family History Son(s) History Unknown: Yes Additional Family Medical History / Comment(s): MRSA on face. Mother Family Medical History: Fibromyalgia, Musculoskeletal Disorder Medications and Allergies Home Medications Medication Instructions Recorded Confirmed Type ALPRAZolam [Xanax] 1 mg PO TID 12/13/13 03/27/22 History Hydrocodone/Acetaminophen [[place] 1 tab PO Q8H PRN 12/13/13 03/27/22 History 10-325] Albuterol Inhaler [Ventolin Hfa 2 puff INHALATION RT-Q4H PRN 02/18/19 03/27/22 History Inhaler] Melatonin [Melatonin ER] 10 mg PO HS 02/18/19 03/27/22 History Cyclobenzaprine [Flexeril] 10 mg PO TID 11/25/21 03/25/22 History Famotidine [Pepcid] 40 mg PO HS 11/25/21 03/27/22 History Ibuprofen [Motrin] 800 mg PO Q8H PRN 11/25/21 03/25/22 History Cetirizine HCl [Zyrtec] 10 mg PO DAILY PRN 02/11/22 03/25/22 History Docusate [Colace] 100 mg PO BID #20 capsule 02/14/22 03/25/22 Rx Trelegy (Unknown Dose) 1 puff INHALATION DAILY PRN 03/19/22 03/27/22 History Vraylar (Unknown Dose) 1 tab PO QAM 03/19/22 03/27/22 History Allergies Allergy/AdvReac Type Severity Reaction Status Date / Time No Known Allergies Allergy Verified 03/27/22 09:13 Surgical - Exam Vital Signs Temp Pulse Resp BP Pulse Ox 97.8 F 108 H 18 117/55 95 03/27/22 09:20 03/27/22 09:20 03/27/22 09:20 03/27/22 09:20 03/27/22 09:20 - General well developed, well nourished, no distress - Eyes PERRL - ENT normal pinna - Neck no masses - Respiratory normal expansion - Cardiovascular Rhythm: regular - Abdomen Abdomen: soft, non tender Assessment and Plan Assessment: GERD. We'll perform EGD.
--- NOTE | 2022-03-27 10:31 | P.OP ---
Date of Procedure: 03/27/22 Preoperative Diagnosis: GERD Postoperative Diagnosis: Mild antral gastritis Procedure(s) Performed: EGD Anesthesia: MAC Surgeon: Trey Mata Pathology: other (Antrum, esophagus) Condition: stable Disposition: PACU Description of Procedure: The patient's placed on the endoscopy table in the lateral position. She received IV sedation. The gastro-/oropharynx passed in the esophagus into the stomach. Scope was then placed through the pylorus. The first and second portion of the duodenum appeared normal. Scope was then brought back the antrum this. Mildly inflamed. A biopsies performed. The scope was then retroflexed and the remainder of the stomach appeared normal. There is no significant hiatal hernia. The distal esophagus appeared normal. However due the patient's symptoms of GERD and a biopsies performed. The proximal esophagus appeared normal. The scope withdrawn for patient.
[2022-03-27 10:36] VITALS: RESP 16
[2022-03-27 10:50] VITALS: BP 116/75; PULSE 97
== END 2022-03-27 11:12 | disposition home or self-care (01) ==
LOC: ORWHC2ENDO 08:55
PROVIDERS: ATTEND Surgery
DX: K29.50 Unspecified chronic gastritis without bleeding (principal); K21.9 Gastro-esophageal reflux disease without esophagitis; M79.7 Fibromyalgia; M45.9 Ankylosing spondylitis of unspecified sites in spine; F90.9 Attention-deficit hyperactivity disorder, unspecified type; F41.9 Anxiety disorder, unspecified; F31.9 Bipolar disorder, unspecified; F17.210 Nicotine dependence, cigarettes, uncomplicated; F10.90 Alcohol use, unspecified, uncomplicated; F12.10 Cannabis abuse, uncomplicated; Z82.69 Family history of other diseases of the musculoskeletal system and connective tissue; Z90.49 Acquired absence of other specified parts of digestive tract; Z98.51 Tubal ligation status; Z79.899 Other long term (current) drug therapy; Z79.51 Long term (current) use of inhaled steroids; Z79.1 Long term (current) use of non-steroidal anti-inflammatories (NSAID)
CPT/HCPCS: 81025; 88305; 43239; J2250; J2704; J2001

== ENCOUNTER → 2022-04-30 | Outpatient (CLI) | payer OTHER, MEDICARE ==
--- NOTE | 2022-04-30 14:49 | MR ---
EXAMINATION TYPE: MR MRCP DATE OF EXAM: 04/30/2022 COMPARISON: CT abdomen and pelvis January 23, 2022 and older studies HISTORY: RUQ pain Standard multiplanar, multisequence MRI departmental protocol Multiplanar, multisequence images of the abdomen were acquired without contrast. Diffusion weighted i maging was performed. Thin and thick slice MRCP imaging performed on MRI. FINDINGS: Slightly suboptimal as there is some respiratory motion compromise. Liver/gallbladder/pancreas/biliary system: Mild hepatomegaly with prominent right hepatic lobe redemo nstrated. No obvious concerning solid or cystic intrahepatic mass. Gallbladder not seen and presumed surgically absent. Pancreas normal in size with 4 to 5 mm thin-walled cyst or cystic lesion in the guerra perior aspect of the uncinate process axial image 37 for reference. MRCP imaging shows nondilated bah creatic duct and fusion of the major and minor ducts before the duodenal ampulla. Common bile duct me asures 10 mm which is upper limits of normal with slight beaded appearance. No intrahepatic biliary d ilatation. There is slightly prominent remnant cystic duct without obvious internal filling defect or calculus. Low intense signal adjacent to this seen best image 16 of series 301 likely reflects recen tly seen calcific focus favoring surgical clip. Other: Lung bases remain clear. The spleen and both adrenal glands appear within normal limits. No guerra spicious renal mass or hydronephrosis is seen. No suspicious bowel dilatation. No intra-abdominal asc ites. Osseous structures are intact. IMPRESSION: Source of right upper quadrant pain not identified on noncontrast MRI/MRCP.
== END | disposition home or self-care (01) ==
LOC: RADMRIMAIN 09:29
PROVIDERS: ATTEND Surgery
DX: K80.50 Calculus of bile duct without cholangitis or cholecystitis without obstruction (principal)
CPT/HCPCS: 74181

== ENCOUNTER 2022-07-02 07:48 | Emergency (ER) | payer OTHER, MEDICARE ==
[2022-07-02] MEDS ORDERED: ACETAMINOPHEN TAB 500 MG TAB PO STA (08:12)
[2022-07-02] MEDS ORDERED: KETOROLAC 15 MG/ML 1 ML VIAL IVP STA (08:13)
[2022-07-02] MEDS ORDERED: diphenhydrAMINE 50 MG/ML 1 ML VIAL IVP STA (08:13)
[2022-07-02] MEDS ORDERED: PROCHLORPERAZINE INJ 10 MG/2 ML VIAL IVP STA (08:13)
[2022-07-02] MEDS ORDERED: SODIUM CHLORIDE 0.9% 1,000 ML IV STA (08:14)
[2022-07-02 08:52] LABS: Basophils % (A) 0 %; Eosinophils # (A) 0.1 k/uL (0-0.7); Eosinophils % (A) 3 %; HGB 11.9 gm/dL (11.4-16.0); Lymphocytes # (A) 1.4 k/uL (1.0-4.8); Lymphocytes % (A) 27 %; MCH 26.7 pg (25.0-35.0); MCHC 32.9 g/dL (31.0-37.0); MCV 81.2 fL (80.0-100.0); Mean Platelet Volume 8.2; Monocytes # (A) 0.3 k/uL (0-1.0); Monocytes % (A) 6 %; Neutrophils # (A) 3.3 k/uL (1.3-7.7); Neutrophils % (A) 62 %; Platelet Count 279 k/uL (150-450); RBC 4.44 m/uL (3.80-5.40); RDW 14.5 % (11.5-15.5); WBC 5.4 k/uL (3.8-10.6)
--- NOTE | 2022-07-02 08:53 | ED ---
General Adult HPI - General Chief complaint: Upper Respiratory Infection Stated complaint: sob Time Seen by Provider: 07/02/22 08:00 Source: patient, RN notes reviewed, old records reviewed Mode of arrival: ambulatory Limitations: no limitations - History of Present Illness Initial comments: Patient is a 42-year-old female with past medical history remarkable for fibromyalgia, tobacco use, who presents emergency Department complaining of jaw has body aches, worsening productive cough. Has been ongoing for 2 weeks, thought she was getting better but then got worse again. Has a mild migraine at this time as well which she does have a history of emesis typical for her. Has been having a productive cough, rhinorrhea, generalized aches. Unknown sick contacts. Subjective fevers. No abdominal pain but endorses diarrhea. Denies any nausea or vomiting. Denies any chest pain or shortness of breath. Denies any other acute complaints at this time. Presents for evaluation of the concerned for upper respiratory infection. She is concerned she may have pneumonia. - Related Data Home Medications Medication Instructions Recorded Confirmed ALPRAZolam [Xanax] 1 mg PO TID 12/13/13 03/27/22 Hydrocodone/Acetaminophen [[place] 1 tab PO Q8H PRN 12/13/13 03/27/22 10-325] Albuterol Inhaler [Ventolin Hfa 2 puff INHALATION RT-Q4H PRN 02/18/19 03/27/22 Inhaler] Melatonin [Melatonin ER] 10 mg PO HS 02/18/19 03/27/22 Cyclobenzaprine [Flexeril] 10 mg PO TID 11/25/21 03/25/22 Famotidine [Pepcid] 40 mg PO HS 11/25/21 03/27/22 Ibuprofen [Motrin] 800 mg PO Q8H PRN 11/25/21 03/25/22 Cetirizine HCl [Zyrtec] 10 mg PO DAILY PRN 02/11/22 03/25/22 Trelegy (Unknown Dose) 1 puff INHALATION DAILY PRN 03/19/22 03/27/22 Vraylar (Unknown Dose) 1 tab PO QAM 03/19/22 03/27/22 Previous Rx's Medication Instructions Recorded Docusate [Colace] 100 mg PO BID #20 capsule 02/14/22 Albuterol Inhaler [Ventolin Hfa 1 - 2 puff INHALATION Q6H PRN #1 07/02/22 Inhaler] each Doxycycline Hyclate 100 mg PO BID 7 Days #14 capsule 07/02/22 predniSONE [Deltasone] 40 mg PO DAILY 5 Days #10 tab 07/02/22 Allergies Allergy/AdvReac Type Severity Reaction Status Date / Time No Known Allergies Allergy Verified 07/02/22 07:57 Review of Systems ROS Statement: Those systems with pertinent positive or pertinent negative responses have been documented in the HPI. Review of Systems: CONST: Denies fever EYES: Denies blurry vision ENT: Endorses nasal congestion C/V: Denies Chest pain RESP: Denies shortness of breath GI: Denies abdominal pain : Denies dysuria SKIN: Denies rash. MSK: Denies joint pain. NEURO: Endorses headache ROS Other: All systems not noted in ROS Statement are negative. Past Medical History Past Medical History: Fibromyalgia, Musculoskeletal Disorder, Pulmonary Embolus (PE) Additional Past Medical History / Comment(s): Chronic back pain, Ankylosing Spondylitis, ruling out multiple sclerosis, chronic constipation, hx hemorrhoids. History of Any Multi-Drug Resistant Organisms: None Reported Past Surgical History: Cholecystectomy, Tubal Ligation Additional Past Surgical History / Comment(s): D&C, hemorrhoidectomy. Past Anesthesia/Blood Transfusion Reactions: No Reported Reaction Past Psychological History: ADD/ADHD, Anxiety, Bipolar, Depression Smoking Status: Current every day smoker Past Alcohol Use History: Occasional Past Drug Use History: Marijuana - Past Family History Son(s) History Unknown: Yes Additional Family Medical History / Comment(s): MRSA on face. Mother Family Medical History: Fibromyalgia, Musculoskeletal Disorder General Exam - General Exam Comments Initial Comments: General: Appears in no acute distress. HEAD: Normal with no signs of head trauma. EYES: PERRLA, EOMI, conjunctiva normal, no discharge. ENT: Hearing grossly intact, normal oropharynx. Moist mucous membranes. RESPIRATORY: Clear breath sounds bilaterally. No wheezes, rales, or rhonchi. No hypoxia. No increased work of breathing. C/V: Regular rate and rhythm. S1 and S2 auscultated, no edema, peripheral pulses 2+ and intact throughout ABD: Abd is soft, nontender, nondistended EXT: Normal range of motion, no obvious deformity SKIN: No rashes or lesions observed on exposed skin. NEURO: Alert and oriented 4. No focal deficits. Limitations: no limitations Course Vital Signs 07/02/22 07/02/22 07:54 11:02 Temperature 98.7 F 98.5 F Pulse Rate 98 76 Respiratory 18 16 Rate Blood Pressure 112/63 137/76 O2 Sat by Pulse 100 99 Oximetry Medical Decision Making - Medical Decision Making Based on the patient's presentation and physical exam, I'm concerned for upper respiratory illness for the patient. Includes possible viral illness or possible pneumonia. We will obtain basic laboratory studies, urinalysis, chest x-ray, 4plex swab. Patient was sent directly treated with Tylenol, as well as a migraine cocktail with IV Benadryl, Toradol, Compazine, 1 L fluid bolus. Vital signs within acceptable limits. No respiratory distress. Patient was in agreement with this plan. Chest x-ray shows bronchitis. Laboratory studies are remarkable for a positive Covid swab. Remainder the labs are unremarkable. I did the patient. I believe it is safe for her to be discharged home. We will cover her for bronchitis with doxycycline, as well as prednisone and albuterol inhaler. She was in agreement with this plan. I will provide the patient with a prescription for doxycycline, prednisone, albuterol inhaler. I instructed the patient to follow up with their PCP in the next 1-3 days. I explained that the patient should return to the emergency department if they experience any worsening symptoms. Strict return precautions were discussed with the patient. The patient expressed understanding of these instructions. I answered all questions that the patient had. The patient was dis charged home in good condition with their prescriptions and follow up information. Was pt. sent in by a medical professional or institution (, GIANNA, NETWORK SUPPORT TECHNICIAN, urgent care, hospital, or [place] [facility]...) When possible be specific @ -No Did you speak to anyone other than the patient for history (EMS, parent, family, police, friend...)? What history was obtained from this source @ -No Did you review nursing and triage notes (agree or disagree)? Why? @ -I reviewed and agree with nursing and triage notes Were old charts reviewed (outside hosp., previous admission, EMS record, old EKG, old radiological studies, urgent care reports/EKG's, [place] [facility] records)? Report findings @ -No old charts were reviewed Differential Diagnosis (chest pain, altered mental status, abdominal pain women, abdominal pain men, vaginal bleeding, weakness, fever, dyspnea, syncope, headache, dizziness, GI bleed, back pain, seizure, CVA, palpatations, mental health)? @ -URI, pneumonia, bronchitis, COVID-19 infection. This list is not all inclusive. EKG interpreted by me (3pts min.). @ -None done X-rays interpreted by me (1pt min.). @ -Chest x-ray shows bronchitis. CT interpreted by me (1pt min.). @ -None done U/S interpreted by me (1pt. min.). @ -None done What testing was considered but not performed or refused? (CT, X-rays, U/S, labs)? Why? @ -None What meds were considered but not given or refused? Why? @ -None Did you discuss the management of the patient with other professionals (professionals i.e. , PA, NETWORK SUPPORT TECHNICIAN, lab, RT, psych nurse, social sciences professor, survey statistician, teacher, animal control officer, social work case manager)? Give summary @ -No Was smoking cessation discussed for >3mins.? @ -No Was critical care preformed (if so, how long)? @ -No Were there social determinants of health that impacted care today? How? (Homelessness, low income, unemployed, alcoholism, drug addiction, transportation, low edu. Level, literacy, decrease access to med. care, intermediate, rehab)? @ -No Was there de-escalation of care discussed even if they declined (Discuss DNR or withdrawal of care, Hospice)? DNR status @ -No What co-morbidities impacted this encounter? (DM, HTN, Smoking, COPD, CAD, Cancer, CVA, ARF, Chemo, Hep., AIDS, mental health diagnosis, sleep apnea, morbid obesity)? @ -Smoking Was patient admitted / discharged? Hospital course, mention meds given and route, prescriptions, significant lab abnormalities, going to OR and other pertinent info. @ -Discharged home. See above for emergency Department course. Undiagnosed new problem with uncertain prognosis? @ -No Drug Therapy requiring intensive monitoring for toxicity (Heparin, Nitro, Insulin, Cardizem)? @ -No Were any procedures done? @ -No Diagnosis/symptom? @ -Bronchitis Acute, or Chronic, or Acute on Chronic? @ -Acute Uncomplicated (without systemic symptoms) or Complicated (systemic symptoms)? @ -Uncomplicated Side effects of treatment? @ -No Exacerbation, Progression, or Severe Exacerbation? @ -No Poses a threat to life or bodily function? How? (Chest pain, [place], [place], pneumonia, PE, COPD, DKA, ARF, appy, cholecystitis, CVA, Diverticulitis, Homicidal, Suicidal, threat to staff... and all critical care pts) @ -No Diagnosis/symptom? @ -COVID-19 infection Acute, or Chronic, or Acute on Chronic? @ -Acute Uncomplicated (without systemic symptoms) or Complicated (systemic symptoms)? @ -Uncomplicated Side effects of treatment? @ -none Exacerbation, Progression, or Severe Exacerbation] @ -no Poses a threat to life or bodily function? @ -no Diagnosis/symptom? @ -Headache Acute, or Chronic, or Acute on Chronic? @ -Acute Uncomplicated (without systemic symptoms) or Complicated (systemic symptoms)? @ -Uncomplicated Side effects of treatment? @ -none Exacerbation, Progression, or Severe Exacerbation] @ -no Poses a threat to life or bodily function? @ -no - Lab Data Result diagrams: 07/02/22 08:27 07/02/22 08:27 Lab Results 07/02/22 07/02/22 07/02/22 Range/Units 08:27 08:27 08:27 WBC 5.4 (3.8-10.6) k/uL RBC 4.44 (3.80-5.40) m/uL Hgb 11.9 (11.4-16.0) gm/dL Hct 36.0 (34.0-46.0) % MCV 81.2 (80.0-100.0) fL MCH 26.7 (25.0-35.0) pg MCHC 32.9 (31.0-37.0) g/dL RDW 14.5 (11.5-15.5) % Plt Count 279 (150-450) k/uL MPV 8.2 Neutrophils % 62 % Lymphocytes % 27 % Monocytes % 6 % Eosinophils % 3 % Basophils % 0 % Neutrophils # 3.3 (1.3-7.7) k/uL Lymphocytes # 1.4 (1.0-4.8) k/uL Monocytes # 0.3 (0-1.0) k/uL Eosinophils # 0.1 (0-0.7) k/uL Basophils # 0.0 (0-0.2) k/uL Sodium 139 (137-145) mmol/L Potassium 3.6 (3.5-5.1) mmol/L Chloride 107 (98-107) mmol/L Carbon Dioxide 25 (22-30) mmol/L Anion Gap 7 mmol/L BUN 12 (7-17) mg/dL Creatinine 0.76 (0.52-1.04) mg/dL Est GFR (CKD-EPI)AfAm >90 (>60 ml/min/1.73 sqM) Est GFR (CKD-EPI)NonAf >90 (>60 ml/min/1.73 sqM) Glucose 107 H (74-99) mg/dL Calcium 9.0 (8.4-10.2) mg/dL Urine Color Urine Appearance (Clear) Urine pH (5.0-8.0) Ur Specific [place] (1.001-1.035) Urine Protein (Negative) Urine Glucose (UA) (Negative) Urine Ketones (Negative) Urine Blood (Negative) Urine Nitrite (Negative) Urine Bilirubin (Negative) Urine Urobilinogen (<2.0) mg/dL Ur Leukocyte Esterase (Negative) Urine RBC (0-5) /hpf Urine WBC (0-5) /hpf Ur Squamous Epith Cells (0-4) /hpf Amorphous Sediment (None) /hpf Urine Bacteria (None) /hpf Influenza Type A (PCR) Not Detected (Not Detectd) Influenza Type B (PCR) Not Detected (Not Detectd) RSV (PCR) Not Detected (Not Detectd) SARS-CoV-2 (PCR) Detected A (Not Detectd) 07/02/22 Range/Units 08:27 WBC (3.8-10.6) k/uL RBC (3.80-5.40) m/uL Hgb (11.4-16.0) gm/dL Hct (34.0-46.0) % MCV (80.0-100.0) fL MCH (25.0-35.0) pg MCHC (31.0-37.0) g/dL RDW (11.5-15.5) % Plt Count (150-450) k/uL MPV Neutrophils % % Lymphocytes % % Monocytes % % Eosinophils % % Basophils % % Neutrophils # (1.3-7.7) k/uL Lymphocytes # (1.0-4.8) k/uL Monocytes # (0-1.0) k/uL Eosinophils # (0-0.7) k/uL Basophils # (0-0.2) k/uL Sodium (137-145) mmol/L Potassium (3.5-5.1) mmol/L Chloride (98-107) mmol/L Carbon Dioxide (22-30) mmol/L Anion Gap mmol/L BUN (7-17) mg/dL Creatinine (0.52-1.04) mg/dL Est GFR (CKD-EPI)AfAm (>60 ml/min/1.73 sqM) Est GFR (CKD-EPI)NonAf (>60 ml/min/1.73 sqM) Glucose (74-99) mg/dL Calcium (8.4-10.2) mg/dL Urine Color Colorless Urine Appearance Cloudy H (Clear) Urine pH 6.5 (5.0-8.0) Ur Specific [place] 1.005 (1.001-1.035) Urine Protein Negative (Negative) Urine Glucose (UA) Negative (Negative) Urine Ketones Negative (Negative) Urine Blood Negative (Negative) Urine Nitrite Negative (Negative) Urine Bilirubin Negative (Negative) Urine Urobilinogen <2.0 (<2.0) mg/dL Ur Leukocyte Esterase Negative (Negative) Urine RBC 2 (0-5) /hpf Urine WBC 4 (0-5) /hpf Ur Squamous Epith Cells 10 H (0-4) /hpf Amorphous Sediment Rare H (None) /hpf Urine Bacteria Occasional H (None) /hpf Influenza Type A (PCR) (Not Detectd) Influenza Type B (PCR) (Not Detectd) RSV (PCR) (Not Detectd) SARS-CoV-2 (PCR) (Not Detectd) Disposition Clinical Impression: Bronchitis, COVID-19, Headache Disposition: HOME SELF-CARE Condition: Good Instructions (If sedation given, give patient instructions): Upper Respiratory Infection (ED), Acute Bronchitis (ED), COVID-19 (Coronavirus Disease 2019) (ED) Prescriptions: predniSONE [Deltasone] 40 mg PO DAILY 5 Days #10 tab Doxycycline Hyclate 100 mg PO BID 7 Days #14 capsule Albuterol Inhaler [Ventolin Hfa Inhaler] 1 - 2 puff INHALATION Q6H PRN #1 each PRN Reason: Dyspnea Is patient prescribed a controlled substance at d/c from ED?: No Referrals: Rayo Olvera DO [Primary Care Provider] - 1-2 days Time of Disposition: 10:30
--- NOTE | 2022-07-02 08:53 | XR ---
EXAMINATION TYPE: XR chest 2V DATE OF EXAM: 07/02/2022 COMPARISON: 02/18/2019 TECHNIQUE: PA and lateral views submitted. HISTORY: Shortness of breath FINDINGS: The lungs are clear and there is no pneumothorax, pleural effusion, or focal pneumonia. Heart size normal and no overt failure. Osseous structures demonstrate hypertrophic and degenerative changes of the spine. Mild hyperinflation. Interstitium mildly coarse. IMPRESSION: 1. Mildly coarsened interstitium associated with bronchitis or mild interstitial pneumonitis. 2. Correlate for asthma or COPD.
[2022-07-02 09:16] LABS: African American GFR (CKD) >90 (>60 ml/min/1.73 sqM); Anion Gap 7 mmol/L; Blood Urea Nitrogen 12 mg/dL (7-17); Carbon Dioxide 25 mmol/L (22-30); Chloride 107 mmol/L (98-107); Glucose 107 mg/dL (74-99); Non-African American GFR(CKD) >90 (>60 ml/min/1.73 sqM); Potassium 3.6 mmol/L (3.5-5.1); Sodium 139 mmol/L (137-145)
[2022-07-02 10:41] LABS: Amorphous Sediment,Urine Rare /hpf; Appearance,Urine Cloudy (Clear); Bacteria,Urine Occasional /hpf; Bilirubin,Urine Negative (Negative); Blood,Urine Negative (Negative); Color,Urine Colorless; Glucose,Urine (UA) Negative (Negative); Ketones,Urine Negative (Negative); Leukocyte Esterase,Urine Negative (Negative); Nitrite,Urine Negative (Negative); PH, Urine 6.5 (5.0-8.0); Protein,Urine Negative (Negative); RBC,Urine 2 /hpf (0-5); Specific Gravity,Urine 1.005 (1.001-1.035); Squamous Epithelial Cell,Urine 10 /hpf (0-4); Urobilinogen,Urine <2.0 mg/dL (<2.0); WBC,Urine 4 /hpf (0-5)
[2022-07-02] MEDS ORDERED: DOXYCYCLINE 100 MG CAP PO STA (10:43)
[2022-07-02] MEDS ORDERED: predniSONE 20 MG TAB PO STA (10:43)
[2022-07-02 11:09] VITALS: BP 137/76; PULSE 76; RESP 16; TEMP 98.5
== END 2022-07-02 11:10 | disposition home or self-care (01) ==
LOC: EC 07:48
DX: U07.1 COVID-19 (principal); J40 Bronchitis, not specified as acute or chronic; F41.9 Anxiety disorder, unspecified; F31.9 Bipolar disorder, unspecified; F90.9 Attention-deficit hyperactivity disorder, unspecified type; F17.200 Nicotine dependence, unspecified, uncomplicated; F12.90 Cannabis use, unspecified, uncomplicated; Z86.711 Personal history of pulmonary embolism
CPT/HCPCS: 36415; 80048; 85025; 81001; 87636; 71046; 99285; 96374; 96375 ×2; 96361; J1200; J0780; J1885; J7512

== ENCOUNTER 2023-01-27 10:04 | Emergency (ER) | payer OTHER, MEDICARE ==
[2023-01-27] MEDS ORDERED: DEXAMETHASONE SOD PHOSPHATE 10 MG/ML 1 ML VIAL IM STA (11:09)
--- NOTE | 2023-01-27 11:19 | ED ---
General Adult HPI - General Chief complaint: Dental/Oral Stated complaint: RIGHT SIDE MOUTH Time Seen by Provider: 01/27/23 10:19 Source: patient, RN notes reviewed Mode of arrival: ambulatory Limitations: no limitations - History of Present Illness Initial comments: 42-year-old female presents emergency department chief complaint of dental pain. She states that on of last week she went to her primary care provider and was prescribed clindamycin 300 mg 4 times a day which she has been taking as prescribed. She states that this morning she woke up and noticed that her lower right-sided jaw is more swollen and she continues to have pain. She admits to taking [place] 10mg at home and ibuprofen for pain which helps somewhat. She denies fever, chills. Denies difficulty swallowing, painful swallowing. - Related Data Home Medications Medication Instructions Recorded Confirmed ALPRAZolam [Xanax] 1 mg PO TID 12/13/13 03/27/22 Hydrocodone/Acetaminophen [[place] 1 tab PO Q8H PRN 12/13/13 03/27/22 10-325] Albuterol Inhaler [Ventolin Hfa 2 puff INHALATION RT-Q4H PRN 02/18/19 03/27/22 Inhaler] Melatonin [Melatonin ER] 10 mg PO HS 02/18/19 03/27/22 Cyclobenzaprine [Flexeril] 10 mg PO TID 11/25/21 03/25/22 Famotidine [Pepcid] 40 mg PO HS 11/25/21 03/27/22 Ibuprofen [Motrin] 800 mg PO Q8H PRN 11/25/21 03/25/22 Cetirizine HCl [Zyrtec] 10 mg PO DAILY PRN 02/11/22 03/25/22 Trelegy (Unknown Dose) 1 puff INHALATION DAILY PRN 03/19/22 03/27/22 Vraylar (Unknown Dose) 1 tab PO QAM 03/19/22 03/27/22 Previous Rx's Medication Instructions Recorded Docusate [Colace] 100 mg PO BID #20 capsule 02/14/22 Albuterol Inhaler [Ventolin Hfa 1 - 2 puff INHALATION Q6H PRN #1 07/02/22 Inhaler] each Doxycycline Hyclate 100 mg PO BID 7 Days #14 capsule 07/02/22 predniSONE [Deltasone] 40 mg PO DAILY 5 Days #10 tab 07/02/22 Amoxic-Pot Clav 875-125Mg 1 tab PO Q12HR #14 tab 01/27/23 [Augmentin 875-125] Allergies Allergy/AdvReac Type Severity Reaction Status Date / Time No Known Allergies Allergy Verified 01/27/23 10:14 Review of Systems ROS Statement: Those systems with pertinent positive or pertinent negative responses have been documented in the HPI. ROS Other: All systems not noted in ROS Statement are negative. Past Medical History Past Medical History: Fibromyalgia, Musculoskeletal Disorder, Pulmonary Embolus (PE) Additional Past Medical History / Comment(s): Chronic back pain, Ankylosing Spondylitis, ruling out multiple sclerosis, chronic constipation, hx hemo rrhoids. History of Any Multi-Drug Resistant Organisms: None Reported Past Surgical History: Cholecystectomy, Tubal Ligation Additional Past Surgical History / Comment(s): D&C, hemorrhoidectomy. Past Anesthesia/Blood Transfusion Reactions: No Reported Reaction Past Psychological History: ADD/ADHD, Anxiety, Bipolar, Depression Smoking Status: Current every day smoker Past Alcohol Use History: Occasional Past Drug Use History: Marijuana - Past Family History Son(s) History Unknown: Yes Additional Family Medical History / Comment(s): MRSA on face. Mother Family Medical History: Fibromyalgia, Musculoskeletal Disorder General Exam Limitations: no limitations General appearance: alert, in no apparent distress Head exam: Present: atraumatic, normocephalic, normal inspection Eye exam: Present: normal appearance, PERRL, EOMI. Absent: scleral icterus, conjunctival injection, periorbital swelling ENT exam: Present: mucous membranes moist, TM's normal bilaterally, normal external ear exam, other (Right-sided mandible swelling, fractured tooth on right lower dentition) Neck exam: Present: normal inspection. Absent: tenderness, meningismus, lymphadenopathy, thyromegaly Respiratory exam: Present: normal lung sounds bilaterally. Absent: respiratory distress, wheezes, rales, rhonchi, stridor Cardiovascular Exam: Present: regular rate, normal rhythm, normal heart sounds. Absent: systolic murmur, diastolic murmur, rubs, gallop, clicks Extremities exam: Present: normal inspection, full ROM, normal capillary refill. Absent: tenderness, pedal edema, joint swelling, calf tenderness Back exam: Present: normal inspection Neurological exam: Present: alert, oriented X3 Psychiatric exam: Present: normal affect, normal mood Skin exam: Present: warm, dry, intact, normal color. Absent: rash Course Vital Signs 01/27/23 01/27/23 10:12 11:52 Temperature 98 F 98.4 F Pulse Rate 94 76 Respiratory 18 16 Rate Blood Pressure 151/91 127/68 O2 Sat by Pulse 98 99 Oximetry Medical Decision Making - Medical Decision Making Was pt. sent in by a medical professional or institution (GIANNA Bond, NYLON MACHINE OPERATOR, urgent care, hospital, or care home...) When possible be specific @ -No Did you speak to anyone other than the patient for history (EMS, parent, family, police, friend...)? What history was obtained from this source @ -No Did you review nursing and triage notes (agree or disagree)? Why? @ -I reviewed and agree with nursing and triage notes Were old charts reviewed (outside hosp., previous admission, EMS record, old EKG, old radiological studies, urgent care reports/EKG's, care home records)? Report findings @ -No old charts were reviewed Differential Diagnosis (chest pain, altered mental status, abdominal pain women, abdominal pain men, vaginal bleeding, weakness, fever, dyspnea, syncope, headache, dizziness, GI bleed, back pain, seizure, CVA, palpatations, mental health, musculoskeletal)? @ -Dental abscess, dental infection, fractured tooth, dental caries, cellulitis, otitis media, this list is not all-inclusive EKG interpreted by me (3pts min.). @ -none X-rays interpreted by me (1pt min.). @ -None done CT interpreted by me (1pt min.). @ -None done U/S interpreted by me (1pt. min.). @ -None done What testing was considered but not performed or refused? (CT, X-rays, U/S, labs)? Why? @ -None What meds were considered but not given or refused? Why? @ -None Did you discuss the management of the patient with other professionals (professionals i.e. GIANNA Bond, NYLON MACHINE OPERATOR, lab, RT, psych nurse, outreach and education social worker, school bus driver/teacher assistant, teacher, senior compliance officer, returned case inspector)? Give summary @ -No Was smoking cessation discussed for >3mins.? @ -No Was critical care preformed (if so, how long)? @ -No Were there social determinants of health that impacted care today? How? (Homelessness, low income, unemployed, alcoholism, drug addiction, transportation, low edu. Level, literacy, decrease access to med. care, [place] [facility], rehab)? @ -No Was there de-escalation of care discussed even if they declined (Discuss DNR or withdrawal of care, Hospice)? DNR status @ -No What co-morbidities impacted this encounter? (DM, HTN, Smoking, COPD, CAD, Cancer, CVA, ARF, Chemo, Hep., AIDS, mental health diagnosis, sleep apnea, mor bid obesity)? @ -None Was patient admitted / discharged? Hospital course, mention meds given and route, prescriptions, significant lab abnormalities, going to OR and other pertinent info. @ -Discharged. Patient presented to emergency department chief complaint of right-sided lower dental pain 5 days. She states that she has been on clinda mycin for 5 days. She states that she has been taking it as prescribed. She also admits to taking anti-inflammatories and [place] for pain. On examination, patient has obvious swelling to the right sided mandibular region not extending to the neck, no overlying erythema. Patient will be switched to Augmentin 2 times a day 7 days and given a dose of IM Decadron 10 mg. Patient advised to follow-up with her dentist for extraction. Patient understanding in stable at time of discharge. Case discussed with my attending, Dr. Terrell Undiagnosed new problem with uncertain prognosis? @ -No Drug Therapy requiring intensive monitoring for toxicity (Heparin, Nitro, Insulin, Cardizem)? @ -No Were any procedures done? @ -No Diagnosis/symptom? @ -dental infection Acute, or Chronic, or Acute on Chronic? @ -acute Uncomplicated (without systemic symptoms) or Complicated (systemic symptoms)? @ -uncomplicated Side effects of treatment? @ -No Exacerbation, Progression, or Severe Exacerbation? @ -No Poses a threat to life or bodily function? How? (Chest pain, [place], [place], pneumonia, PE, COPD, DKA, ARF, appy, cholecystitis, CVA, Diverticulitis, Homicidal, Suicidal, threat to staff... and all critical care pts) @ -No Disposition Clinical Impression: Fracture of tooth, Dental caries Disposition: HOME SELF-CARE Condition: Stable Instructions (If sedation given, give patient instructions): Toothache (ED) Additional Instructions: Please follow up with your dentist. Take antibiotics as prescribed and to completion. Return to the emergency department for new or worsening symptoms. Prescriptions: Amoxic-Pot Clav 875-125Mg [Augmentin 875-125] 1 tab PO Q12HR #14 tab Is patient prescribed a controlled substance at d/c from ED?: No Referrals: Josse Austin MD [Primary Care Provider] - 1-2 days Time of Disposition: 11:18
[2023-01-27] MEDS ORDERED: KETOROLAC 15 MG/ML 1 ML VIAL IM STA (11:30)
[2023-01-27 11:54] VITALS: BP 127/68; PULSE 76; RESP 16; TEMP 98.4
== END 2023-01-27 11:53 | disposition home or self-care (01) ==
LOC: EC 10:04
DX: K02.9 Dental caries, unspecified (principal); K03.81 Cracked tooth; K04.7 Periapical abscess without sinus; F31.9 Bipolar disorder, unspecified; F41.9 Anxiety disorder, unspecified; F90.9 Attention-deficit hyperactivity disorder, unspecified type; F17.200 Nicotine dependence, unspecified, uncomplicated; F12.90 Cannabis use, unspecified, uncomplicated; Z79.899 Other long term (current) drug therapy; Z90.49 Acquired absence of other specified parts of digestive tract
CPT/HCPCS: 99283; 96372 ×2; J1100; J1885

== ENCOUNTER 2023-04-25 16:50 | Emergency (ER) | payer OTHER, MEDICARE ==
--- NOTE | 2023-04-25 17:17 | ED ---
Chest Pain HPI - General Source: patient Mode of arrival: wheelchair Limitations: no limitations <Barry Elizalde - Last Filed: 04/25/23 17:18> <Miguelangel Terrell Nury - Last Filed: 04/25/23 20:40> - General Chief Complaint: Chest Pain Stated Complaint: arm numbness-chest pain - History of Present Illness Initial Comments: 43-year-old female with a past medical history significant for PE (not currently on blood thinners) presenting to the ED with a chief complaint of chest pain. 2 hours ago started to experience paresthesias in her bilateral arms. States approximately an hour or 2 after started to experience pain on the left side of her chest. Pain does not radiate. Pain is pleuritic in nature. Associated shortness of breath. Patient does note a history of PE and states symptoms do feel similar. Patient is a smoker. Denies exogenous hormone use. (Barry Elizalde) - Related Data Home Medications Medication Instructions Recorded Confirmed ALPRAZolam [Xanax] 1 mg PO TID 12/13/13 04/25/23 Hydrocodone/Acetaminophen [[place] 1 tab PO TID 12/13/13 04/25/23 10-325] Melatonin [Melatonin ER] 10 mg PO HS 02/18/19 04/25/23 Cyclobenzaprine [Flexeril] 10 mg PO TID 11/25/21 04/25/23 Ibuprofen [Motrin] 800 mg PO Q8H PRN 11/25/21 04/25/23 Albuterol Inhaler [Ventolin Hfa 1 - 2 puff INHALATION RT-Q6H PRN 04/25/23 04/25/23 Inhaler] Lansoprazole 30 mg PO BID 04/25/23 04/25/23 lamoTRIgine [LaMICtal] 200 mg PO DAILY 04/25/23 04/25/23 Previous Rx's Medication Instructions Recorded Amoxic-Pot Clav 875-125Mg 1 tab PO Q12HR #14 tab 01/27/23 [Augmentin 875-125] Allergies Allergy/AdvReac Type Severity Reaction Status Date / Time No Known Allergies Allergy Verified 04/25/23 20:10 Review of Systems ROS Other: All systems not noted in ROS Statement are negative. <Barry Elizalde - Last Filed: 04/25/23 17:18> ROS Other: All systems not noted in ROS Statement are negative. <Miguelangel Terrell - Last Filed: 04/25/23 20:40> ROS Statement: Those systems with pertinent positive or pertinent negative responses have been documented in the HPI. Past Medical History Past Medical History: Fibromyalgia, Musculoskeletal Disorder, Pulmonary Embolus (PE) Additional Past Medical History / Comment(s): Chronic back pain, Ankylosing Spondylitis, ruling out multiple sclerosis, chronic constipation, hx hemorrhoids. History of Any Multi-Drug Resistant Organisms: None Reported Past Surgical History: Cholecystectomy, Tubal Ligation Additional Past Surgical History / Comment(s): D&C, hemorrhoidectomy. Past Anesthesia/Blood Transfusion Reactions: No Reported Reaction Past Psychological History: ADD/ADHD, Anxiety, Bipolar, Depression Smoking Status: Current every day smoker Past Alcohol Use History: Occasional Past Drug Use History: Marijuana - Past Family History Son(s) History Unknown: Yes Additional Family Medical History / Comment(s): MRSA on face. Mother Family Medical History: Fibromyalgia, Musculoskeletal Disorder <Barry Elizalde - Last Filed: 04/25/23 17:18> General Exam Limitations: no limitations General appearance: alert, in no apparent distress Neck exam: Present: normal inspection Cardiovascular Exam: Present: regular rate, normal rhythm Extremities exam: Present: normal inspection Back exam: Present: normal inspection Neurological exam: Present: alert <Barry Elizalde - Last Filed: 04/25/23 17:18> Head exam: Present: atraumatic, normocephalic Eye exam: Present: normal appearance, PERRL Respiratory exam: Present: normal lung sounds bilaterally. Absent: respiratory distress, wheezes, rhonchi GI/Abdominal exam: Present: soft. Absent: distended, tenderness, guarding Psychiatric exam: Present: normal affect, normal mood Skin exam: Present: warm, dry, intact. Absent: cyanosis, diaphoretic <Miguelangel Terrell - Last Filed: 04/25/23 20:40> Course Vital Signs 04/25/23 16:58 Temperature 97.6 F Pulse Rate 91 Respiratory 20 Rate Blood Pressure 142/68 O2 Sat by Pulse 100 Oximetry Chest Pain MDM <Barry Elizalde - Last Filed: 04/25/23 17:18> <Miguelangel Terrell Nury - Last Filed: 04/25/23 20:40> - [facility] Quicknote portion performed. Signed Barry Eliazlde PA-C (Barry Elizalde) Was pt. sent in by a medical professional or institution (, GIANNA, ELECTRONIC DATA PROCESSING AUDITOR, urgent care, hospital, or retirement...) When possible be specific @ -No Did you speak to anyone other than the patient for history (EMS, parent, family, police, friend...)? What history was obtained from this source @ -No Did you review nursing and triage notes (agree or disagree)? Why? @ -I reviewed and agree with nursing and triage notes Were old charts reviewed (outside hosp., previous admission, EMS record, old EKG, old radiological studies, urgent care reports/EKG's, retirement records)? Report findings @ -No old charts were reviewed Differential Diagnosis (chest pain, altered mental status, abdominal pain women, abdominal pain men, vaginal bleeding, weakness, fever, dyspnea, syncope, headache, dizziness, GI bleed, back pain, seizure, CVA, palpatations, mental health, musculoskeletal)? @ -Differential Chest Pain: Stable Angina, Unstable Angina, STEMI, NSTEMI Aortic Dissection, Pneumothorax, Musculoskeletal, Esophageal Spasm GERD, Cholecystitis, Pancreatitis, Zoster, this is not meant to be an all-inclusive list. EKG interpreted by me (3pts min.). @ -[Sinus rhythm rate is 75, NJ interval 138, QRS duration 89, QTC 400, no ST segment elevation. X-rays interpreted by me (1pt min.). @ -Chest x-ray negative for acute cardio primary findings CT interpreted by me (1pt min.). @ -None done U/S interpreted by me (1pt. min.). @ -None done What testing was considered but not performed or refused? (CT, X-rays, U/S, labs)? Why? @ -None What meds were considered but not given or refused? Why? @ -None Did you discuss the management of the patient with other professionals (professionals i.e. GIANNA Bond, ELECTRONIC DATA PROCESSING AUDITOR, lab, RT, psych nurse, 7th grade social studies teacher, gaming manager, teacher, submarine advisory team watch officer, telehealth case manager)? Give summary @ -No Was smoking cessation discussed for >3mins.? @ -No Was critical care preformed (if so, how long)? @ -No Were there social determinants of health that impacted care today? How? (Homelessness, low income, unemployed, alcoholism, drug addiction, transportation, low edu. Level, literacy, decrease access to med. care, senior care, rehab)? @ -No Was there de-escalation of care discussed even if they declined (Discuss DNR or withdrawal of care, Hospice)? DNR status @ -No What co-morbidities impacted this encounter? (DM, HTN, Smoking, COPD, CAD, Cancer, CVA, ARF, Chemo, Hep., AIDS, mental health diagnosis, sleep apnea, morbid obesity)? @ -None Was patient admitted / discharged? Hospital course, mention meds given and route, prescriptions, significant lab abnormalities, going to OR and other pertinent info. @43-year-old female with atypical chest pain. EKG sinus rhythm without ST segment elevation per chest x-ray is clear. She has an anemia with no active bleeding. Normal white blood cell count. Negative d-dimer. It of troponin 2. Viral panel negative. Patient states stable for discharge with outpatient follow-up at this time. Undiagnosed new problem with uncertain prognosis? @ -No Drug Therapy requiring intensive monitoring for toxicity (Heparin, Nitro, Insulin, Cardizem)? @ -No Were any procedures done? @ -No Diagnosis/symptom? @ -[Chest pain Acute, or Chronic, or Acute on Chronic? @ -Acute Uncomplicated (without systemic symptoms) or Complicated (systemic symptoms)? @ -default Side effects of treatment? @ -No Exacerbation, Progression, or Severe Exacerbation? @ -No Poses a threat to life or bodily function? How? (Chest pain, [place], MS, pneumonia, PE, COPD, DKA, ARF, appy, cholecystitis, CVA, Diverticulitis, Homicidal, Suicidal, threat to staff... and all critical care pts) @ -Low risk at this time (Miguelangel Terrell) Disposition <Barry Elizalde - Last Filed: 04/25/23 17:18> Is patient prescribed a controlled substance at d/c from ED?: No Time of Disposition: 20:40 <Miguelangel Terrell - Last Filed: 04/25/23 20:40> Clinical Impression: Atypical chest pain Disposition: HOME SELF-CARE Condition: Fair Instructions (If sedation given, give patient instructions): Chest Pain (ED) Referrals: Rayo Olevra DO [Primary Care Provider] - 1-2 days
[2023-04-25 17:41] LABS: Anisocytosis Slight; Basophils % (A) 0 %; Eosinophils # (A) 0.2 k/uL (0-0.7); Eosinophils % (A) 2 %; HCT 31.4 % (34.0-46.0); HGB 9.5 gm/dL (11.4-16.0); Hypochromasia Marked; Lymphocytes # (A) 3.1 k/uL (1.0-4.8); Lymphocytes % (A) 29 %; MCH 22.1 pg (25.0-35.0); MCHC 30.4 g/dL (31.0-37.0); MCV 72.7 fL (80.0-100.0); Mean Platelet Volume 8.3; Microcytosis Moderate; Monocytes # (A) 0.5 k/uL (0-1.0); Monocytes % (A) 5 %; Neutrophils # (A) 6.6 k/uL (1.3-7.7); Neutrophils % (A) 61 %; Platelet Count 402 k/uL (150-450); RBC 4.32 m/uL (3.80-5.40); RDW 17.1 % (11.5-15.5); WBC 10.8 k/uL (3.8-10.6)
[2023-04-25 17:52] LABS: ALT 10 U/L (4-34); AST 15 U/L (14-36); African American GFR (CKD) >90 (>60 ml/min/1.73 sqM); Albumin 4.6 g/dL (3.5-5.0); Alkaline Phosphatase 53 U/L (38-126); Anion Gap 11 mmol/L; Blood Urea Nitrogen 10 mg/dL (7-17); Calcium 9.8 mg/dL (8.4-10.2); Carbon Dioxide 24 mmol/L (22-30); Chloride 104 mmol/L (98-107); Glucose 86 mg/dL (74-99); Magnesium 1.8 mg/dL (1.6-2.3); Non-African American GFR(CKD) >90 (>60 ml/min/1.73 sqM); Potassium 3.7 mmol/L (3.5-5.1); Sodium 139 mmol/L (137-145); Total Bilirubin 0.4 mg/dL (0.2-1.3); Total Protein 7.5 g/dL (6.3-8.2)
[2023-04-25 17:57] LABS: INR 0.9 (<1.2); Partial Thromboplastin Time 24.9 sec (22.0-30.0)
--- NOTE | 2023-04-25 18:45 | XR ---
EXAMINATION TYPE: XR chest 2V DATE OF EXAM: 04/25/2023 6:37 PM CLINICAL INDICATION:Female, 43 years old with history of CP; [facility] COMPARISON: 07/02/2022 TECHNIQUE: XR chest 2V. Frontal PA and lateral views of the chest. FINDINGS: Lines/Tubes: None. Heart/mediastinum: Cardiomediastinal silhouette is well defined and unremarkable. Heart size is norm al. Mediastinum appears normal. Pulmonary vascularity: Not increased, Lungs/Pleura: There is no evidence of pleural effusion, focal consolidation, or pneumothorax. Musculoskeletal: No acute osseous abnormality demonstrated in the limits of the exam. Mild degenerat morales changes of the spine and shoulders. Other findings: None. IMPRESSION: No acute cardiopulmonary abnormality.
[2023-04-25] MEDS ORDERED: HYDROcodone/APAP 10-325MG 1 EACH TAB PO ONE (19:46)
[2023-04-25] MEDS ORDERED: ALPRAZolam 1 MG TAB PO STA (19:47)
[2023-04-25 21:15] VITALS: BP 135/64; PULSE 70; RESP 16; TEMP 98.9
== END 2023-04-25 20:59 | disposition home or self-care (01) ==
LOC: EC 16:50
DX: R07.89 Other chest pain (principal); F31.9 Bipolar disorder, unspecified; F41.9 Anxiety disorder, unspecified; F17.200 Nicotine dependence, unspecified, uncomplicated; F12.90 Cannabis use, unspecified, uncomplicated; Z79.899 Other long term (current) drug therapy
CPT/HCPCS: 36415; 71046; 80053; 83735; 84484; 85025; 85379; 85610; 85730; 87636; 93005; 99285

== ENCOUNTER → 2023-09-17 | Outpatient (CLI) | payer OTHER, MEDICARE ==
--- NOTE | 2023-09-17 13:45 | CT ---
EXAMINATION TYPE: CT abdomen pelvis w con DATE OF EXAM: 09/17/2023 COMPARISON: INDICATION: epigastric pain hx of GB removal DLP: 1187 mGycm, Automated exposure control for dose reduction was used. CONTRAST: 100ml mL of Isovue 300. Study performed with Oral Contrast TECHNIQUE: Axial images were obtained from above the diaphragm to the pubic rami in the axial plane a t 5 mm thick sections. Reconstructed images are reviewed on the computer in the coronal plane. Lyle nstructed images have a detector artifact present. This is less evident on the axial images but prese nt. FINDINGS: Limited CT sections are obtained the lung bases. There is some streak opacities within the posterior lung bases. Correlate for atelectasis. This is somewhat broad-based posterior right lung measuring 2 .6 cm. Consider underlying mass and follow-up is recommended. This has increased in size from 2021.. CT ABDOMEN: Liver: Normal Spleen: Normal Pancreas: Normal Adrenal glands: The adrenal glands are normal. Gallbladder: Not identified Kidneys: No masses are evident. No hydronephrosis is present. No cysts are present. Delayed images were obtained through the kidneys, which remain unremarkable. Aorta: Normal Inferior vena cava: Normal. CT PELVIS: Loops of bowel within the abdomen and pelvis are normal. There are loops of bowel which are incom pletely distended or lack oral contrast limiting their evaluation. Oral contrast extends to the dista l small bowel loops. Some fecal debris is within the colon. Appendix: Normal as visualized. Urinary bladder: Normal. Genitourinary structures: Uterus is normal. Adnexa are unremarkable. Osseous structures: No suspicious lytic or sclerotic lesions. Degenerative disc changes are present L 5-S1 with vacuum disc phenomenon and endplate changes. IMPRESSION: 1. No suspicious abnormality to account for epigastric pain. 2. Atelectasis versus mass posterior right lung base. Short-term follow-up CT chest recommended.
== END | disposition home or self-care (01) ==
LOC: RADCTMAIN 11:03
PROVIDERS: ATTEND Surgery
DX: J98.11 Atelectasis (principal)
CPT/HCPCS: 74177; Q9967

== ENCOUNTER 2023-09-29 08:52 | Day surgery (SDC) | payer OTHER, MEDICARE ==
[2023-09-25 14:58] VITALS: BMI 25.5
[2023-09-29] MEDS: LACTATED RINGERS 1,000 ML IV ONE (09:22)
[2023-09-29 09:35] VITALS: RESP 16; TEMP 97.5
[2023-09-29] MEDS ORDERED: PROPOFOL 10 MG/ML 20 ML VIAL IV ONE (09:53)
[2023-09-29] MEDS ORDERED: fentaNYL (PF) 50 MCG/ML 2 ML AMP ONE (09:53)
[2023-09-29] MEDS ORDERED: LIDOCAINE 2% (PF) 20 MG/ML 5 ML VIAL ONE (09:53)
--- NOTE | 2023-09-29 09:57 | P.HPADDEND ---
H&P Addendum H&P Addendum Date: 09/29/23 Patient seen in the office recently for complaints of epigastric pain. CAT scan abdomen pelvis was ordered. Official dictation shows no definite abnormalities. There is some thickening of the duodenum and duodenal sweep however. Will proceed with EGD at this time.
--- NOTE | 2023-09-29 10:05 | P.PCN ---
Date of Procedure: 09/29/23 Procedure(s) Performed: Preoperative Dx: Epigastric pain Postoperative Dx: Mild gastritis Procedure: EGD with Bx Anesthesia: Sedation Endoscopist: Dr. Parisi Specimens: Duodenum, antrum Endoscopic Procedure: The patient was on the endoscopy table in the left decubitus position. The Olympus gastroscope was inserted into the oropharynx and passed under direct visualization to the region of the third portion of the duodenum. From that point the scope was slowly withdrawn inspecting all surfaces carefully. There were no neoplastic inflammatory or polypoid lesions throughout the duodenum. A biopsy of the duodenum took place. The pylorus was widely patent. The stomach was carefully inspected. There was mild gastritis. A biopsy of the antrum took place to rule out H. pylori. Retroflexion revealed a normal hiatus. The esophagus was then carefully examined. There were no neoplastic inflammatory or polypoid lesions throughout the visualized esophagus. The patient was then taken to the recovery room in stable condition per anesthesia guidelines. Recommendations: Await biopsy results. Continue antiacid therapy. Minimize THC use.
[2023-09-29 11:06] VITALS: BP 113/56; PULSE 84
== END 2023-09-29 10:44 | disposition home or self-care (01) ==
LOC: ORWHC2ENDO 08:52
PROVIDERS: ATTEND Surgery
DX: K29.70 Gastritis, unspecified, without bleeding (principal); G35 Multiple sclerosis; F12.90 Cannabis use, unspecified, uncomplicated; Z86.711 Personal history of pulmonary embolism; Z90.49 Acquired absence of other specified parts of digestive tract; Z79.899 Other long term (current) drug therapy
CPT/HCPCS: 81025; 88305; 43239; J3010; J2704; J2001

== ENCOUNTER → 2023-12-02 | Outpatient (CLI) | payer OTHER, MEDICARE ==
--- NOTE | 2023-12-02 12:00 | CT ---
EXAMINATION TYPE: CT chest w con CT DLP: 579 mGycm, Automated exposure control for dose reduction was used. DATE OF EXAM: 12/02/2023 9:39 AM COMPARISON: CT abdomen and pelvis 09/17/2023, CT chest 10/24/2018 CLINICAL INDICATION:Female, 43 years old with history of R91.8 OTHER NONSPECIFIC ABNORMAL FINDING OF LUNG F; [facility], abnormal finding of lung field on prior CT TECHNIQUE: Multiple axial images were obtained through the chest following the administration of 100 cc of Isovue 300. . Coronal and sagittal reformats reviewed. FINDINGS: LUNGS/ PLEURA: No pleural effusion pneumothorax. No focal consolidation. Linear atelectasis within th e bilateral lower lobes. No suspicious pulmonary nodule or mass. AIRWAY: Patent and unremarkable.. HEART: Size within normal limits. No pericardial effusion. MEDIASTINUM: No gross evidence of adenopathy. VASCULATURE: No aortic aneurysm. MUSCULOSKELETAL: No acute osseous abnormalities. No aggressive osseous lesion. SOFT TISSUES/LYMPH NODES: Unremarkable. LOWER NECK: No significant findings. UPPER ABDOMEN: Subcentimeter hypodense focus within the left hepatic lobe which is too small to kevin cterize. IMPRESSION: Bilateral lower lobe linear atelectasis. No evidence for pulmonary mass. Previous finding correlates with atelectasis.
== END | disposition home or self-care (01) ==
LOC: RADCTMAIN 09:07
PROVIDERS: ATTEND Family Medicine
DX: J98.11 Atelectasis (principal); R91.8 Other nonspecific abnormal finding of lung field
CPT/HCPCS: 71260; Q9967